=== PATIENT | male | born 1975 | race Two or more races ===

== ENCOUNTER 2024-09-06 19:52 | Inpatient (IN) | payer MEDICAID, OTHER ==
[~2024-09-06] VITALS: Ht 185.4 cm; Wt 92.2 kg
--- NOTE | 2024-09-06 20:17 | ED.PDOC ---
Musculoskeletal HPI Comments This is a 48 year old male GABRIELA presenting to the ED with chief complaint of bilateral leg swelling. Patient reports that he has been experiencing bilateral leg swelling and redness, worse on left, for the past 2-3 days. Patient relays that he has been compliant with all of his medication. Patient denies any chest pain, SOB, dizziness, N/V, fever, or chills. Patient was tachycardic at arrival. 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, Medications, Allergies Allergies: Coded Allergies: Lisinopril (Verified Allergy, Unknown, 09/06/24) Information Source: Patient, Emergency Med Personnel Mode of Arrival: EMS Location: Bilateral Extremity Location: Foot, Leg Timing: Days Prehospital treatment: None Severity: Moderate Able to Move Extremity: Yes Bear Weight: Fully Pain: Moderate Mechanism: Spontaneous Circumstances: Spontaneous Onset of Symptoms: Spontaneous Symptoms: Swelling, Pain, Erythema DVT Risk Factors: CHF Past Medical History PAST MEDICAL HISTORY: CHF, COPD, HTN Surgical History: Denies all surgeries Family History Family History: Reviewed,noncontributory to illness Social History Smoker: Non-Smoker Alcohol: Denies ETOH Use Drugs: Denies Drug Use Lives In: Home Constitutional: denies: chills, diaphoresis, fatigue, fever, malaise, sweats, weakness, others EENTM: denies: blurred vision, double vision, ear bleeding, ear discharge, ear drainage, ear pain, ear ringing, eye pain, eye redness, hearing loss, mouth pain, mouth swelling, nasal discharge, nose bleeding, nose congestion, nose pain, photophobia, tearing, throat pain, throat swelling, voice changes, others Respiratory: denies: cough, hemoptysis, orthopnea, SOB at rest, shortness of breath, SOB with excertion, stridor, wheezing, others Cardiovascular: reports: edema; denies: chest pain, dizzy spells, diaphoresis, Dyspnea on exertion, irregular heart beat, left arm pain, lightheadedness, palpitations, PND, syncope, others Gastrointestinal: denies: abdomen distended, abdominal pain, blood streaked bowels, constipated, diarrhea, dysphagia, difficulty swallowing, hematemesis, melena, nausea, poor appetite, poor fluid intake, rectal bleeding, rectal pain, vomiting, others Genitourinary: denies: burning, dysuria, flank pain, frequency, hematuria, incontinence, penile discharge, penile sore, pain, testicle pain, testicle swelling, urgency, others Neurological: denies: dizziness, fainting, headache, left sided numbness, left sided weakness, numbness, paresthesia, pre-existing deficit, right sided numbness, right sided weakness, seizure, speech problems, tingling, tremors, weakness, others Musculoskeletal: reports: others (Bilateral lower extremity swelling); denies: back pain, gout, joint pain, joint swelling, muscle pain, muscle stiffness, neck pain Integumetry: denies: bruises, change in color, change in hair/nails, dryness, laceration, lesions, lumps, rash, wounds, others Allergic/Immunocompromised: denies: Difficulty Healing, Frequent Infections, Hives, Itching, others Hematologic/Lymphatic: denies: anemia, blood clots, easy bleeding, easy bruising, swollen glands, others Endocrine: denies: excessive hunger, excessive sweating, excessive thirst, excessive urination, flushing, intolerance to cold, intolerance to heat, unexplained weight gain, unexplained weight loss, others Psychiatric: denies: anxiety, bipolar disorder, depression, hopeless, panic disorder, schizophrenia, sleepless, suicidal, others All Other Systems: Reviewed and Negative Physical Exam General Appearance: Moderate Distress (Moderate distress due to bilateral lower extremity swelling. Patient appears not well kempt.), Normal HEENT: Normal ENT Inspection, Pharynx Normal, TMs Normal Neck: Full Range of Motion, Non-Tender, Normal, Normal Inspection Respiratory: Chest Non-Tender, Lungs Clear, No Accessory Muscle Use, No Respiratory Distress, Normal Breath Sounds Cardiovascular: No Edema, No JVD, No Murmur, No Gallop, Normal Peripheral Pulses, Regular Rate/Rhythm Breast Exam: Deferred Gastrointestinal: No Organomegaly, Non Tender, No Pulsatile Mass, Normal Bowel Sounds, Soft Genitalia: Deferred Pelvic: Deferred Rectal: Deferred Extremities: Other (Patient displays 2+ to 3+ pitting edema noted to bilateral lower extremities with left greater than right. Distal neurovascularly intact. Localized erythema.) Neurologic: Alert, No Motor Deficits, Normal Affect, Normal Mood, No Sensory Deficits Cerebellar Function: Normal Reflexes: Normal Skin: Dry, Normal Color, Warm Lymphatic: No Adenopathy Was a procedure done? Was a procedure done?: No Differential Diagnosis EXT Differential Diagnosis: Cellulitis, CHF X-Ray, Labs, Meds, VS Vital Signs Date Time Temp Pulse Resp B/P (MAP) Pulse Ox O2 Delivery O2 Flow Rate FiO2 09/06/24 22:33 112 09/06/24 21:04 122/61 09/06/24 21:00 98.0 108 16 122/61 (81) 98 98.0 09/06/24 21:00 98 Room Air* 0 21 09/06/24 20:05 98.0 108 16 122/61 (81) 98 98.0 Lab Test 09/06/24 22:30 09/06/24 21:36 09/06/24 20:46 Range/Units Lactic Acid Level 1.4 2.2 *H 0.4-2.0 mmol/L Troponin I High Sensitivity 59 *H 52 </=54 ng/L White Blood Count 9.5 4.4-10.8 10^3/uL Red Blood Count 5.32 4.5-5.90 10^6/uL Hemoglobin 14.8 13.5-17.5 g/dL Hematocrit 45.6 41.0-53.0 % Mean Corpuscular Volume 85.7 80.0-100.0 fL Mean Corpuscular Hemoglobin 27.8 L 28.0-32.0 pg Mean Corpuscular Hemoglobin Concent 32.4 32.0-36.0 g/dL Red Cell Distribution Width 16.1 H 11.8-14.3 % Platelet Count 242 140-450 10^3/uL Mean Platelet Volume 7.5 6.9-10.8 fL Neutrophils (%) (Auto) 72.2 37.0-80.0 % Lymphocytes (%) (Auto) 15.6 10.0-50.0 % Monocytes (%) (Auto) 10.7 0.0-12.0 % Eosinophils (%) (Auto) 0.8 0.0-7.0 % Basophils (%) (Auto) 0.7 0.0-2.0 % Neutrophils # (Auto) 6.8 1.6-8.6 10 ^3/uL Lymphocytes # (Auto) 1.5 0.4-5.4 10 ^3/uL Monocytes # (Auto) 1.0 0-1.3 10 ^3/uL Eosinophils # (Auto) 0.1 0-0.8 10 ^3/uL Basophils # (Auto) 0.1 0-0.2 10 ^3/uL Nucleated Red Blood Cells 0.2 % Sodium Level 142 136-145 mmol/L Potassium Level 4.3 3.5-5.1 mmol/L Chloride Level 111 H 98-107 mmol/L Carbon Dioxide Level 21 20-31 mmol/L Anion Gap 10 5-15 Blood Urea Nitrogen 19 9-23 mg/dL Creatinine 1.40 H 0.700-1.30 mg/dL Glomerular Filtration Rate Calc 61 >90 mL/min BUN/Creatinine Ratio 13.6 10.0-20.0 Serum Glucose 92 74-106 mg/dL Calcium Level 8.8 8.7-10.4 mg/dL Total Bilirubin 1.1 H 0.2-1.0 mg/dL Aspartate Amino Transferase (AST) 35 H <34 U/L Alanine Aminotransferase (ALT) 52 H 7-40 U/L Alkaline Phosphatase 90 46-116 U/L B-Type Natriuretic Peptide 1828.04 0-100 pg/mL Total Protein 5.7 5.7-8.2 g/dL Albumin 3.5 3.2-4.8 g/dL Lipase 34 12-53 U/L Current Medications Medications (Trade) Dose Ordered Sig/Katlyn Route Start Time Stop Time Status Last Admin Furosemide (Lasix Injection) 60 mg ONCE ONCE IV 09/06/24 20:30 09/06/24 20:31 DC 09/06/24 21:04 X-Ray, Labs, Meds, VS Comment All studies performed the ED were evaluated by me personally. Patient's laboratories revealed a mild but elevated troponin as well as elevated lactic acid. EKG revealed a sinus tachycardia with a rate of 112. Atrial premature complex noted as well as left atrial enlargement, LAD and anterior septal infarct that appears to be old. FL interval of 145 and QT interval of 330. Significant BNP elevation indicative of a acute CHF exacerbation as well as a transaminitis was noted. Patient will be admitted for management of his CHF concerns as well as cardiac evaluation of his elevated troponins. Any additional studies required will be initiated by the hospitalist as per management directive. Time of 1ST Reevaluation: 22:24 Reevaluation 1ST: Improved Consultation: PCP, Cardiology Patient Education/Counseling: Diagnosis, Treatment Family Education/Counseling: Diagnosis, Treatment, No Family Present Sepsis Sepsis Reasesment Focused Exam Orders: Laboratory Tests 09/06/24 20:46: Lactic Acid Level 2.2 09/06/24 22:30: Lactic Acid Level 1.4 Recent Procedure: No On Antibiotic Therapy: No Respiratory Rate >20: No Heart Rate >90: No Temp<36 C (96.8 F) or >38.3 C: No SBP <90 or MAP <65 mmHG: No New Acute Mental Status Change: No Is the patient on CPAP, BIPAP,: No IV fluid given: Yes Departure 1 Departure Time of Disposition: 22:24 Impression: Primary Impression: Acute exacerbation of CHF (congestive heart failure) Additional Impressions: Elevated troponin Elevated lactic acid level Transaminitis Disposition: ADMITTED INPATIENT Condition: Fair Discharged With: Self Critical Care Note Critical Care Time?: No Stability Stability form required: No Heart Score Heart Score: Heart Score Response (Comments) Value History Slightly Suspicious 0 EKG Repolarization Disturb 1 Age 45-64 1 Risk Factors 1 or 2 risk factors 1 Troponin 1-2 x's Normal limit 1 Total 4 I personally scribed for SUZIE MALDONADO PAC ([email or web address]) on 09/06/24 at 20:17. Electronically submitted by Anhsu Tom ([email or web address]). SUZIE AMLDONADO PAC Sep 06, 2024 20:17
[2024-09-06 21:00] VITALS: O2SAT 98
[2024-09-06] MEDS: FUROSEMIDE 100 MG/10ML VIAL IV ONE (21:04)
[2024-09-06 21:30] LABS: Hematocrit 45.6 % (41.0-53.0); Hemoglobin 14.8 g/dL (13.5-17.5); Mean Corpuscular Hemoglobin 27.8 pg (28.0-32.0); Mean Corpuscular Volume 85.7 fL (80.0-100.0); Nucleated Red Blood Cells % 0.2 %
[2024-09-06 21:37] LABS: Albumin 3.5 g/dL (3.2-4.8); Alkaline Phosphatase 90 U/L (46-116); Anion Gap 10 (5-15); BUN/Creatinine Ratio 13.6 (10.0-20.0); Bilirubin, Total 1.1 mg/dL (0.2-1.0); Blood Urea Nitrogen 19 mg/dL (9-23); Calcium 8.8 mg/dL (8.7-10.4); Carbon Dioxide 21 mmol/L (20-31); Glucose 92 mg/dL (74-106); Lipase 34 U/L (12-53); Potassium 4.3 mmol/L (3.5-5.1); Sodium 142 mmol/L (136-145)
[2024-09-06 21:50] LABS: Alanine Aminotransferase 52 U/L (7-40); Chloride 111 mmol/L (98-107); Total Protein 5.7 g/dL (5.7-8.2)
[2024-09-06 21:56] LABS: Lactic Acid w/Reflex 2.2 mmol/L (0.4-2.0)
[2024-09-06] MEDS: SODIUM CHLORIDE 0.9% 1,000 ML IV ONE (22:32)
[2024-09-07] MEDS: FUROSEMIDE INJECTION 10 ML ONE (01:52)
[2024-09-07] MEDS ORDERED: ACETAMINOPHEN 325 MG TAB PO PRN (04:45)
[2024-09-07] MEDS ORDERED: DOCUSATE SOD 100 MG CAP PO PRN (04:45)
[2024-09-07] MEDS ORDERED: hydrALAZINE HCL 20 MG/ML VL IV PRN (04:45)
[2024-09-07] MEDS ORDERED: ONDANSETRON HCL 4 MG/2 ML VIAL IV PRN (04:45)
--- NOTE | 2024-09-07 05:26 | DVHHP2 ---
History of Present Illness Reason for Visit: Acute exacerbation of congestive heart failure History of Present Illness The patient is a 48-year-old male with past medical history of COPD, CHF, and hy pertension who presented to [facility] ED with complaint of bilateral lower extremity swelling. Patient reports that he has been experiencing bilateral leg swelling, redness, worse on left, for the past 3 days. Reports that he has been compliant with all of his medication. Patient was seen and evaluated in the ED, laboratory data shows WBC 9.5, platelets 242, sodium 142, potassium 4.3, BUN 19, creatinine 1.40, glucose 92, calcium 8.8, lipase 34, AST 35, ALT 52, troponin 59, BNP 1823.04, lactic acid 2.2 trending down to 1.4, blood pressure 149/89, heart rate 57, temperature 97.6 F, O2 saturation 99% on oxygen. Patient was started on IV Lasix, please see medication orders section in the computer. On my assessment, patient denied chest pain, no headache, no dizziness, no diaphoresis, no shortness of breath, no diarrhea, no nausea, no vomiting, no fever, no chills. Patient was admitted for further evaluation and medical management. Past Medical History CHF, COPD, HTN Past Surgical History Denies all surgeries Family History Reviewed, noncontributory to the management of this case. Past Social History The patient lives at home, denies smoking, alcohol or illicit drugs abuse. Review of Systems Constitutional: Yes: Weakness; No: Fever, Chills, Sweats, Malaise, Other Eyes: No: Pain, Vision change, Conjunctivae inflammation, Eyelid inflammation, Other, Redness ENT: No: Ear pain, Ear discharge, Nose pain, Nose discharge, Nose congestion, Mouth pain, Mouth swelling, Throat pain, Throat swelling, Other Respiratory: Shortness of breath; No: Cough, Dry, SOB with excertion, Wheezing, Hemoptysis, Pleuritic Pain, Sputum, Wheezing, Other Cardiovascular: Edema; No: Chest Pain, Palpitations, Orthopnea, Paroxysmal Noc. Dyspnea, Lt Headedness, Other Gastrointestinal: No: Nausea, Vomiting, Abdominal Pain, Diarrhea, Constipation, Melena, Hematochezia, Other Genitourinary: No Dysuria, No Frequency, No Incontinence, No Hematuria, No Retention, No Other Musculoskeletal: other (Bilateral lower extremity swelling); No: neck pain, shoulder pain, arm pain, back pain, hand pain, leg pain, foot pain Skin: Other (Lower extremity redness); No: Rash, Lesions, Jaundice, Bruising Neurological: No: Weakness, Numbness, Incoordination, Change in speech, Confusion, Seizures, Other Allergies: Coded Allergies: Lisinopril (Verified Allergy, Unknown, 09/06/24) Medications Current Medications Medications Dose Ordered Sig/Katlyn Route Start Time Stop Time Status Last Admin Dose Admin Furosemide 40 mg DAILY IV 09/07/24 10:00 Carvedilol 3.125 mg Q12HR PO 09/07/24 10:00 Hydralazine HCl 10 mg Q6HP PRN IV 09/07/24 04:45 Sodium Chloride 10 ml Q8HR IV 09/07/24 06:00 Acetaminophen/ Hydrocodone Bitart 1 tab Q4HP PRN PO 09/07/24 04:45 Ondansetron HCl 4 mg Q4HP PRN IV 09/07/24 04:45 Docusate Sodium 100 mg BIDPRN PRN PO 09/07/24 04:45 Acetaminophen 650 mg Q6HP PRN PO 09/07/24 04:45 Nitroglycerin 0.4 mg Q5MINP PRN SL 09/07/24 05:30 UNV Morphine Sulfate 2 mg Q30M PRN IV 09/07/24 05:30 UNV Exam Vital Signs Vital Signs Date Time Temp Pulse Resp B/P (MAP) Pulse Ox O2 Delivery O2 Flow Rate FiO2 09/07/24 02:40 97.5 50 20 129/87 (101) 99 97.5 09/06/24 21:00 Room Air* 0 21 General Appearance: Alert, Oriented X3, Cooperative, No acute distress HEENT: Atraumatic, PERRLA, EOMI, Mucous membr. moist/pink Respiratory: Normal air movement, Other (Diminished breath sounds) Cardiovascular: Regular rate, Normal S1, Normal S2, No murmurs Abdominal: Normal bowel sounds, Soft, No tenderness, No hepatospenomegaly, No masses Extremities: No clubbing, No cyanosis, No edema, Normal pulses, Other (Lower extremity swelling) Skin: No rashes, No breakdown, No significant lesion Neuro: Normal speech, Normal tone, Sensation intact, Cranial nerves 3-12 NL, Reflexes 2+, Other (Generalized weakness) Psych/Mental Status: Mental status NL, Mood NL Labs/Xrays Labs Test 09/06/24 23:43 09/06/24 22:30 09/06/24 20:46 Range/Units Troponin I High Sensitivity 59 *H </=54 ng/L Lactic Acid Level 1.4 0.4-2.0 mmol/L White Blood Count 9.5 4.4-10.8 10^3/uL Red Blood Count 5.32 4.5-5.90 10^6/uL Hemoglobin 14.8 13.5-17.5 g/dL Hematocrit 45.6 41.0-53.0 % Mean Corpuscular Volume 85.7 80.0-100.0 fL Mean Corpuscular Hemoglobin 27.8 L 28.0-32.0 pg Mean Corpuscular Hemoglobin Concent 32.4 32.0-36.0 g/dL Red Cell Distribution Width 16.1 H 11.8-14.3 % Platelet Count 242 140-450 10^3/uL Mean Platelet Volume 7.5 6.9-10.8 fL Neutrophils (%) (Auto) 72.2 37.0-80.0 % Lymphocytes (%) (Auto) 15.6 10.0-50.0 % Monocytes (%) (Auto) 10.7 0.0-12.0 % Eosinophils (%) (Auto) 0.8 0.0-7.0 % Basophils (%) (Auto) 0.7 0.0-2.0 % Neutrophils # (Auto) 6.8 1.6-8.6 10 ^3/uL Lymphocytes # (Auto) 1.5 0.4-5.4 10 ^3/uL Monocytes # (Auto) 1.0 0-1.3 10 ^3/uL Eosinophils # (Auto) 0.1 0-0.8 10 ^3/uL Basophils # (Auto) 0.1 0-0.2 10 ^3/uL Nucleated Red Blood Cells 0.2 % Sodium Level 142 136-145 mmol/L Potassium Level 4.3 3.5-5.1 mmol/L Chloride Level 111 H 98-107 mmol/L Carbon Dioxide Level 21 20-31 mmol/L Anion Gap 10 5-15 Blood Urea Nitrogen 19 9-23 mg/dL Creatinine 1.40 H 0.700-1.30 mg/dL Glomerular Filtration Rate Calc 61 >90 mL/min BUN/Creatinine Ratio 13.6 10.0-20.0 Serum Glucose 92 74-106 mg/dL Calcium Level 8.8 8.7-10.4 mg/dL Total Bilirubin 1.1 H 0.2-1.0 mg/dL Aspartate Amino Transferase (AST) 35 H <34 U/L Alanine Aminotransferase (ALT) 52 H 7-40 U/L Alkaline Phosphatase 90 46-116 U/L B-Type Natriuretic Peptide 1828.04 0-100 pg/mL Total Protein 5.7 5.7-8.2 g/dL Albumin 3.5 3.2-4.8 g/dL Lipase 34 12-53 U/L Assessment/Plan Assessment/Plan Acute exacerbation of congestive heart failure Elevated troponin Elevated lactic acid level Transaminitis Acute renal injury Elevated liver enzymes Generalized weakness Plan 1. Admit to telemetry unit 2. Breathing treatment 3. Pain control management 4. Management of fluids and electrolytes 5. Consultation for hospitalist 6. Diagnostic tests chest x-ray 7. DVT prophylaxis-on aspirin 8. Repeat labs CBC, CMP in a.m. 9. Continue with current medical management 10. Treatment plan discussed with patient and RN. Patient verbalized understanding. Plan discussed with: Patient, Other (RN) My Orders Orders - CHAYITO IZAGUIRRE DNP Procedure Category Date Status Time Complete Blood Count LAB 09/07/24 Logged 04:41 Comprehensive LAB 09/07/24 Logged Metabolic Panel 04:41 Furosemide Injection PHA 09/07/24 In Process (Lasix Injection) 10:00 Carvedilol Tablet PHA 09/07/24 In Process (Coreg Tablet) 10:00 Hydralazine Injection PHA 09/07/24 In Process (Apresoline Inject 04:45 Allergies BUCKY 09/07/24 In Process 04:41 Code Status CODE 09/07/24 Transmitted 04:41 Sodium Chloride Lock PHA 09/07/24 In Process (Saline Lock Ns) 06:00 Oxygen Per Hour RT 09/07/24 Transmitted 04:41 Hydrocodone-Acet PHA 09/07/24 In Process 5/325mg Tab ([place] 04:45 Ondansetron Hcl PHA 09/07/24 In Process (Zofran) 04:45 Docusate Sodium PHA 09/07/24 In Process Capsule (Colace 04:45 Complete Blood Count LAB 09/08/24 Verified 04:00 Comprehensive LAB 09/08/24 Verified Metabolic Panel 04:00 Cardiac DIET 09/07/24 Transmitted Diet-2gna,Lofat,Lochol Breakfast Condition: Serious [facility] 09/07/24 In Process 04:[address] [facility] 09/07/24 In Process (Tylenol Tablet) 04:45 Bedrest With Bathroom [facility] 09/07/24 In Process Privileg 04:41 Sequential [facility] 09/07/24 In Process Compression Device Echo 2d Mode Cardiac US 09/07/24 Logged DOP 05:04 Admit ADMIT 09/07/24 Transmitted 05:[address] [facility] 09/07/24 Logged Sublingual (Ntrostat 05:[address] [facility] 09/07/24 Logged Injection 05:30 Stat Ekg For Chest [facility] 09/07/24 In Process Pain 05:23 Notify Md Of Changes [facility] 09/07/24 In Process From Base 05:23 Bilingual Nanny For [facility] 09/07/24 In Process 24 Hours 05:23 Emergency Dysrhythmia [facility] 09/07/24 In Process Protocol 05:23 Rhythm Strips Once [facility] 09/07/24 In Process Every Shift 05:23 Oxygen By Nasal RT 09/07/24 Transmitted Cannula 05:23 Problem List: (1) Acute exacerbation of congestive heart failure (2) Elevated troponin (3) Elevated lactic acid level (4) Transaminitis (5) Acute renal injury (6) Elevated liver enzymes (7) Generalized weakness Date of Service: Sep 07, 2024 Billing Provider: CHAYITO IZAGUIRRE DNP Common Visit Codes: [id number] INP/OBS CARE (HIGH) CHAYITO IZAGUIRRE DNP Sep 07, 2024 05:26
[2024-09-07] MEDS ORDERED: NITROGLYCERIN 0.4 MG SL TAB SL PRN (05:30)
[2024-09-07] MEDS ORDERED: MORPHINE SULFATE INJ 2 MG/ml SYRG IV PRN (05:30)
[2024-09-07 05:55] LABS: Hematocrit 48.6 % (41.0-53.0); Hemoglobin 15.8 g/dL (13.5-17.5); Mean Corpuscular Hemoglobin 27.3 pg (28.0-32.0); Mean Corpuscular Volume 84.2 fL (80.0-100.0); Nucleated Red Blood Cells % 0.1 %
[2024-09-07] MEDS: SODIUM CHLOR 0.9% PF (SALINE LOCK) 10ML VIAL/SYR IV SCH (06:02)
[2024-09-07 06:11] LABS: Albumin 3.9 g/dL (3.2-4.8); Alkaline Phosphatase 91 U/L (46-116); Anion Gap 9 (5-15); BUN/Creatinine Ratio 16.2 (10.0-20.0); Calcium 9.1 mg/dL (8.7-10.4); Carbon Dioxide 24 mmol/L (20-31); Chloride 107 mmol/L (98-107); Potassium 4.3 mmol/L (3.5-5.1); Sodium 140 mmol/L (136-145); Total Protein 6.2 g/dL (5.7-8.2)
[2024-09-07 06:29] LABS: Alanine Aminotransferase 55 U/L (7-40); Bilirubin, Total 1.4 mg/dL (0.2-1.0); Blood Urea Nitrogen 23 mg/dL (9-23); Glucose 110 mg/dL (74-106)
[2024-09-07] MEDS: FUROSEMIDE 40 MG/4 ML VIAL IV SCH ×2 (07:46→18:00)
[2024-09-07] MEDS: CARVEDILOL 3.125 MG TAB PO SCH (07:46)
[2024-09-07] MEDS: HYDROcodone-ACET 5/325MG TAB PO PRN (07:48)
[2024-09-07 08:02] VITALS: PULSE 50; RESP 20; O2SAT 95
[2024-09-07 10:45] VITALS: BP 143/95; PULSE 100; RESP 20; TEMP 98.6; O2SAT 100
[2024-09-07 12:00] VITALS: BP 152/81; PULSE 87; RESP 12; TEMP 97.5; O2SAT 95
--- NOTE | 2024-09-07 12:54 | DVH ---
CHEST RADIOGRAPH Indication: CHF Technique: Single frontal view of the chest was obtained Comparison: None FINDINGS: The cardiac silhouette is enlarged. The lungs demonstrate perihilar airspace opacities. Left basilar airspace opacities. The pulmonary vasculature is prominent. There is no pleural effusion. There is no pneumothorax. IMPRESSION: Cardiomegaly with pulmonary vascular congestion and bilateral perihilar airspace opacities. Left basilar airspace opacities.
--- NOTE | 2024-09-07 13:00 | DVHPN2 ---
Subjective I am assuming the care of the patient from today onwards who was under the care of the hospitalist team. Chest x-ray has been ordered. Patient denies any shortness of breaths but does complaining of leg swelling for last three days. Changes from previous H/P or p: No Changes Eyes: No Pain, No Vision change, No Conjunctivae inflammation, No Eyelid inflammation, No Other, No Redness ENT: No Ear pain, No Ear discharge, No Nose pain, No Nose discharge, No Nose congestion, No Mouth pain, No Mouth swelling, No Throat pain, No Throat swelling, No Other Cardiovascular: No Chest Pain, No Palpitations, No Orthopnea, No Paroxysmal Noc. Dyspnea; Edema; No Lt Headedness, No Other Respiratory: No Cough, No Dry; Shortness of breath; No SOB with excertion, No Wheezing, No Hemoptysis, No Pleuritic Pain, No Sputum, No Other Gastrointestinal: No Nausea, No Vomiting, No Abdominal Pain, No Diarrhea, No Constipation, No Melena, No Hematochezia, No Other Genitourinary: No Dysuria, No Frequency, No Incontinence, No Hematuria, No Retention, No Other Musculoskeletal: other (Bilateral lower extremity swelling); No neck pain, No shoulder pain, No arm pain, No back pain, No hand pain, No leg pain, No foot pain Skin: No Rash, No Lesions, No Jaundice, No Bruising; Other (Lower extremity redness) Objective Vitals Vital Signs Date Time Temp Pulse Resp B/P (MAP) Pulse Ox O2 Delivery O2 Flow Rate FiO2 09/07/24 12:00 97.5 87 12 152/81 (104) 95 97.5 09/07/24 08:02 Room Air* 0 21 Exam HEENT pupils are reactive Neck is supple CV is S1-S2 regular rate and rhythm Respiratory bilateral basal crackles GI positive bowel sound Extremity 3+ pitting edema [employer]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 Medications Current Medications Medications Dose Ordered Sig/Katlyn Route Start Time Stop Time Status Last Admin Dose Admin Furosemide 40 mg DAILY IV 09/07/24 10:00 09/07/24 07:46 40 MG Carvedilol 3.125 mg Q12HR PO 09/07/24 10:00 Hydralazine HCl 10 mg Q6HP PRN IV 09/07/24 04:45 Sodium Chloride 10 ml Q8HR IV 09/07/24 06:00 09/07/24 06:02 10 ML Acetaminophen/ Hydrocodone Bitart 1 tab Q4HP PRN PO 09/07/24 04:45 09/07/24 07:48 1 TAB Ondansetron HCl 4 mg Q4HP PRN IV 09/07/24 04:45 Docusate Sodium 100 mg BIDPRN PRN PO 09/07/24 04:45 Acetaminophen 650 mg Q6HP PRN PO 09/07/24 04:45 Nitroglycerin 0.4 mg Q5MINP PRN SL 09/07/24 05:30 Morphine Sulfate 2 mg Q30M PRN IV 09/07/24 05:30 Aspirin 81 mg DAILY PO 09/08/24 10:00 Laboratory Results Laboratory Tests 09/07/24 05:45 Chemistry Test 09/06/24 20:46 09/07/24 05:45 Albumin 3.5 g/dL (3.2-4.8) 3.9 g/dL (3.2-4.8) Calcium Level 8.8 mg/dL (8.7-10.4) 9.1 mg/dL (8.7-10.4) Total Protein 5.7 g/dL (5.7-8.2) 6.2 g/dL (5.7-8.2) Lipid panel Test 09/06/24 20:46 Lipase 34 U/L (12-53) Cardiac Markers Test 09/06/24 20:46 B-Type Natriuretic Peptide 1828.04 pg/mL (0-100) LFT Test 09/06/24 20:46 09/07/24 05:45 Alanine Aminotransferase (ALT) 52 U/L (7-40) H 55 U/L (7-40) H Alkaline Phosphatase 90 U/L (46-116) 91 U/L (46-116) Aspartate Amino Transferase (AST) 35 U/L (<34) H 37 U/L (<34) H Total Bilirubin 1.1 mg/dL (0.2-1.0) H 1.4 mg/dL (0.2-1.0) H Assessment/Plan Assessment/Plan 48-year-old male with a known history of COPD, chronic tobacco use disorder, congestive heart failure, hypertension who initially presented to hospital with a bilateral lower extremity swelling found to have 1. Acute on chronic congestive heart failure exacerbation unspecified 2. Acute kidney injury suspected secondary to vasomotor nephropathy 3. Mildly elevated troponin suspect secondary to acute CHF exacerbation 4. Transaminitis suspect secondary to passive congestion from congestive heart failure 5. COPD 6. Chronic tobacco use disorder -Glenda chest x-ray, IV diuretics, 2D echo -beta alhaji, med nebs as needed. Plan discussed with: Patient My Orders Orders - MAURICIO MAYER MD Procedure Category Date Status Time * Cardiology Consult CONS 09/07/24 Transmitted 12:06 Chest Xray 1 View XY 09/07/24 Resulted 12:06 Furosemide Injection PHA 09/07/24 Transmitted (Lasix Injection) 18:00 Date of Service: Sep 07, 2024 Billing Provider: MAURICIO MAYER MD Common Visit Codes: [id number] INP/OBS CARE(MOD) MAURICIO MAYER MD Sep 07, 2024 13:00
[2024-09-07] MEDS: hydrALAZINE HCL 20 MG/ML VL IV PRN (14:15)
[2024-09-07 15:16] VITALS: BP 125/84; PULSE 60; RESP 12; O2SAT 99
--- NOTE | 2024-09-07 19:36 | DVHSR ---
APPROVED REPORT EXAM: Two-dimensional and M-mode echocardiogram with Doppler and color Doppler. INDICATION CHF exacerbation unspecified RISK FACTORS Height: 6'1, Weight: 220 DIMENSIONS LVDd6.7 (3.8-5.7cm)LA (2D)4.4 (1.9-4.0cm)Aortic Root3.6 (2.0-3.7cm) LVDs5.5 (2.5-4.0cm)LA (MM) (1.9-4.0cm)Aortic Cusp Exc1.8 (1.5-2.0cm) EF (%) 25.0 (55-70%)Rt. Atrium5.3 (1.9-4.0cm)Asc. Aorta3.0 cm IVSd0.8 (0.7-1.1cm)RV (D)5.3 (1.8-2.4cm) PWd1.2 (0.7-1.1cm) Mitral Valve MitralMitral Stenosis E wave1.04m/sMV Mean GR.mmHg A wave0.47m/sMV Peak GR.106mmHg E/A ratio2.22D MVAcm2 DECEL [id number] 1/2 Timems Aortic Valve Aortic ValveAortic Stenosis V10.84m/Maddie Mean GR.4mmHg V21.38m/Maddie Peak GR.7mmHg LVOT Diameter2.2 (1.8-2.4cm)Doppler AVA2.31cm2 Pulmonic Valve V21.00m/s Tricuspid Valve TR Velocity2.77m/s [id number] Conclusion DILATED ALL CARDIAC CHAMBERS SEVERE HYPOKINESIS OF ALL CARDIAC CHAMBERS LV EF IS ONLY 20% SEVERE MR CRITICAL PULMONARY HYPERTENSION RVSP IS 61 MM OF HG AND IS VERY HIGH NO EFFUSION
[2024-09-07 20:00] VITALS: BP 164/95; PULSE 69; RESP 17; TEMP 97.9; O2SAT 98
[2024-09-07 21:00] VITALS: BP 130/79; PULSE 52; RESP 17; TEMP 97.7; O2SAT 99
[2024-09-08] VITALS (22 sets, daily range): BP systolic 97–141; BP diastolic 54–103; PULSE 49–108; RESP 17–20; TEMP 97–98.2; O2SAT 95–100
[2024-09-08] MEDS: ALBUTEROL SULF 2.5 MG/0.5ML(0.5%) NEB SOLN NEB PRN (01:17)
[2024-09-08 06:14] LABS: Alanine Aminotransferase 40 U/L (7-40); Albumin 3.7 g/dL (3.2-4.8); Alkaline Phosphatase 84 U/L (46-116); Anion Gap 11 (5-15); BUN/Creatinine Ratio 17.8 (10.0-20.0); Bilirubin, Total 1.1 mg/dL (0.2-1.0); Calcium 9.7 mg/dL (8.7-10.4); Carbon Dioxide 24 mmol/L (20-31); Glucose 92 mg/dL (74-106); Potassium 4.5 mmol/L (3.5-5.1); Sodium 142 mmol/L (136-145); Total Protein 5.8 g/dL (5.7-8.2)
[2024-09-08 06:23] LABS: Blood Urea Nitrogen 26 mg/dL (9-23); Chloride 107 mmol/L (98-107)
[2024-09-08 09:59] LABS: Hematocrit 45.9 % (41.0-53.0); Hemoglobin 15.2 g/dL (13.5-17.5); Mean Corpuscular Hemoglobin 28.1 pg (28.0-32.0); Mean Corpuscular Volume 84.7 fL (80.0-100.0); Nucleated Red Blood Cells % 0.1 %
--- NOTE | 2024-09-08 11:04 | ECG ---
[facility] Test Date: 2024-09-06 Test Time: 22:33:05 Pat Name: SARAH OLIVERA Department: ER Room: 0214T B Gender: M Community Health Coordinator: TA : 1975 Requested By: SUZIE MALDONADO Order Number: [id number] Reading MD: Peter Leong Measurements Intervals Arnold Rate: 112 P: 32 VA: 145 QRS: -50 QRSD: 100 T: 55 QT: 330 QTc: 451 Interpretive Statements Sinus tachycardia Atrial premature complex Probable left atrial enlargement LAD, consider left anterior fascicular block Anteroseptal infarct, old Electronically Signed On 09-08-2024 20:11:02 PDT by Peter Leong Please click the below link to view image of tracing.
--- NOTE | 2024-09-08 15:20 | DVHPN2 ---
Subjective Chest x-ray reviewed Patient denies any shortness of breaths but does complaining of leg swelling for last three days. Changes from previous H/P or p: No Changes Eyes: No Pain, No Vision change, No Conjunctivae inflammation, No Eyelid inflammation, No Other, No Redness ENT: No Ear pain, No Ear discharge, No Nose pain, No Nose discharge, No Nose congestion, No Mouth pain, No Mouth swelling, No Throat pain, No Throat swelling, No Other Cardiovascular: No Chest Pain, No Palpitations, No Orthopnea, No Paroxysmal Noc. Dyspnea; Edema; No Lt Headedness, No Other Respiratory: No Cough, No Dry; Shortness of breath; No SOB with excertion, No Wheezing, No Hemoptysis, No Pleuritic Pain, No Sputum, No Other Gastrointestinal: No Nausea, No Vomiting, No Abdominal Pain, No Diarrhea, No Constipation, No Melena, No Hematochezia, No Other Genitourinary: No Dysuria, No Frequency, No Incontinence, No Hematuria, No Retention, No Other Musculoskeletal: other (Bilateral lower extremity swelling); No neck pain, No shoulder pain, No arm pain, No back pain, No hand pain, No leg pain, No foot pain Skin: No Rash, No Lesions, No Jaundice, No Bruising; Other (Lower extremity redness) Objective Vitals Vital Signs Date Time Temp Pulse Resp B/P (MAP) Pulse Ox O2 Delivery O2 Flow Rate FiO2 09/08/24 13:00 97.7 49 19 130/98 (109) 99 97.7 09/08/24 10:00 Room Air* 0 21 Intake/Output Intake and Output 09/08/24 07:00 Intake Total 650 ml Balance 650 ml Intake Oral 650 ml Exam HEENT pupils are reactive Neck is supple CV is S1-S2 regular rate and rhythm Respiratory bilateral basal crackles GI positive bowel sound Extremity 3+ pitting edema [place] HAULIER no motor deficit Medications Current Medications Medications Dose Ordered Sig/Katlyn Route Start Time Stop Time Status Last Admin Dose Admin Carvedilol 3.125 mg Q12HR PO 09/07/24 10:00 09/08/24 09:58 3.125 MG Sodium Chloride 10 ml Q8HR IV 09/07/24 06:00 09/08/24 06:00 10 ML Acetaminophen/ Hydrocodone Bitart 1 tab Q4HP PRN PO 09/07/24 04:45 09/07/24 07:48 1 TAB Ondansetron HCl 4 mg Q4HP PRN IV 09/07/24 04:45 Docusate Sodium 100 mg BIDPRN PRN PO 09/07/24 04:45 Acetaminophen 650 mg Q6HP PRN PO 09/07/24 04:45 Nitroglycerin 0.4 mg Q5MINP PRN SL 09/07/24 05:30 Morphine Sulfate 2 mg Q30M PRN IV 09/07/24 05:30 Aspirin 81 mg DAILY PO 09/08/24 10:00 09/08/24 09:54 81 MG Furosemide 40 mg BIDD IV 09/07/24 18:00 09/08/24 05:33 40 MG Hydralazine HCl 10 mg Q6HP PRN IV 09/07/24 13:45 09/07/24 14:15 10 MG Albuterol 2.5 mg Q4HPRN PRN NEB 09/08/24 01:00 09/08/24 01:17 2.5 MG Albuterol 2.5 mg Q4HWA NEB 09/08/24 18:00 Ipratropium [place] 0.5 mg Q4HWA NEB 09/08/24 18:00 Laboratory Results Laboratory Tests 09/08/24 04:50 09/08/24 09:45 Chemistry Test 09/08/24 04:50 Albumin 3.7 g/dL (3.2-4.8) Calcium Level 9.7 mg/dL (8.7-10.4) Total Protein 5.8 g/dL (5.7-8.2) LFT Test 09/08/24 04:50 Alanine Aminotransferase (ALT) 40 U/L (7-40) Alkaline Phosphatase 84 U/L (46-116) Aspartate Amino Transferase (AST) 29 U/L (<34) Total Bilirubin 1.1 mg/dL (0.2-1.0) H Assessment/Plan Assessment/Plan 48-year-old male with a known history of COPD, chronic tobacco use disorder, congestive heart failure, hypertension who initially presented to hospital with a bilateral lower extremity swelling found to have 1. Acute on chronic congestive heart failure exacerbation unspecified 2. Acute kidney injury suspected secondary to vasomotor nephropathy 3. Mildly elevated troponin suspect secondary to acute CHF exacerbation 4. Transaminitis suspect secondary to passive congestion from congestive heart failure 5. COPD 6. Chronic tobacco use disorder , IV diuretics, 2D echo, daily weights strict I&Os -beta alhaji, med nebs as needed. Plan discussed with: Patient My Orders Orders - MAURICIO MAYER MD Procedure Category Date Status Time Albuterol Medneb PHA 09/08/24 In Process (Ventolin Medneb) 18:00 Ipratropium Medneb PHA 09/08/24 In Process (Atrovent Medneb) 18:00 Date of Service: Sep 08, 2024 Billing Provider: MAURICIO MAYER MD Common Visit Codes: [id number] INP/OBS CARE(MOD) MAURICIO MAYER MD Sep 08, 2024 15:20
[2024-09-08] MEDS ORDERED: IPRATROPIUM BROM 0.5 MG/2.5ML INH SOL NEB SCH ×2 (18:00)
[2024-09-08] MEDS: IPRATROPIUM BROM 0.5 MG/2.5ML INH SOL NEB SCH (18:32)
[2024-09-08] MEDS: ALBUTEROL SULF 2.5 MG/0.5ML(0.5%) NEB SOLN NEB SCH (18:32)
[2024-09-09] VITALS (19 sets, daily range): BP systolic 98–143; BP diastolic 43–105; PULSE 65–98; RESP 16–20; TEMP 97–98.1; O2SAT 95–100
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
--- NOTE | 2024-09-09 15:25 | DVHPN2 ---
Subjective Chest x-ray reviewed Patient denies any shortness of breaths but does complaining of leg swelling for last three days. Changes from previous H/P or p: No Changes Eyes: No Pain, No Vision change, No Conjunctivae inflammation, No Eyelid inflammation, No Other, No Redness ENT: No Ear pain, No Ear discharge, No Nose pain, No Nose discharge, No Nose congestion, No Mouth pain, No Mouth swelling, No Throat pain, No Throat swelling, No Other Cardiovascular: No Chest Pain, No Palpitations, No Orthopnea, No Paroxysmal Noc. Dyspnea; Edema; No Lt Headedness, No Other Respiratory: No Cough, No Dry; Shortness of breath; No SOB with excertion, No Wheezing, No Hemoptysis, No Pleuritic Pain, No Sputum, No Other Gastrointestinal: No Nausea, No Vomiting, No Abdominal Pain, No Diarrhea, No Constipation, No Melena, No Hematochezia, No Other Genitourinary: No Dysuria, No Frequency, No Incontinence, No Hematuria, No Retention, No Other Musculoskeletal: other (Bilateral lower extremity swelling); No neck pain, No shoulder pain, No arm pain, No back pain, No hand pain, No leg pain, No foot pain Skin: No Rash, No Lesions, No Jaundice, No Bruising; Other (Lower extremity redness) Objective Vitals Vital Signs Date Time Temp Pulse Resp B/P (MAP) Pulse Ox O2 Delivery O2 Flow Rate FiO2 09/09/24 14:18 91 18 100 09/09/24 14:12 Room Air* 0 21 21 09/09/24 12:00 97.0 100/43 (62) 97.0 Intake/Output Intake and Output 09/09/24 07:00 Intake Total 2000 ml Balance 2000 ml Intake Oral 2000 ml # Voids 10 # Bowel Movements 1 Exam HEENT pupils are reactive Neck is supple CV is S1-S2 regular rate and rhythm Respiratory bilateral basal crackles GI positive bowel sound Extremity 3+ pitting edema SUBACUTE NURSE no motor deficit Medications Current Medications Medications Dose Ordered Sig/Katlyn Route Start Time Stop Time Status Last Admin Dose Admin Carvedilol 3.125 mg Q12HR PO 09/07/24 10:00 09/09/24 09:45 3.125 MG Sodium Chloride 10 ml Q8HR IV 09/07/24 06:00 09/09/24 14:00 10 ML Acetaminophen/ Hydrocodone Bitart 1 tab Q4HP PRN PO 09/07/24 04:45 09/08/24 20:48 1 TAB Ondansetron HCl 4 mg Q4HP PRN IV 09/07/24 04:45 Docusate Sodium 100 mg BIDPRN PRN PO 09/07/24 04:45 Acetaminophen 650 mg Q6HP PRN PO 09/07/24 04:45 Nitroglycerin 0.4 mg Q5MINP PRN SL 09/07/24 05:30 Morphine Sulfate 2 mg Q30M PRN IV 09/07/24 05:30 Aspirin 81 mg DAILY PO 09/08/24 10:00 09/09/24 09:36 81 MG Hydralazine HCl 10 mg Q6HP PRN IV 09/07/24 13:45 09/07/24 14:15 10 MG Albuterol 2.5 mg Q4HPRN PRN NEB 09/08/24 01:00 09/08/24 01:17 2.5 MG Albuterol 2.5 mg Q4HWA NEB 09/08/24 18:00 09/09/24 14:11 2.5 MG Ipratropium [place] 0.5 mg Q4HWA NEB 09/08/24 18:00 09/09/24 14:11 0.5 MG Furosemide 40 mg DAILY IV 09/10/24 10:00 Laboratory Results Laboratory Tests 09/08/24 04:50 09/08/24 09:45 Assessment/Plan Assessment/Plan 48-year-old male with a known history of COPD, chronic tobacco use disorder, congestive heart failure, hypertension who initially presented to hospital with a bilateral lower extremity swelling found to have 1. Acute on chronic congestive heart failure exacerbation unspecified 2. Acute kidney injury suspected secondary to vasomotor nephropathy 3. Mildly elevated troponin suspect secondary to acute CHF exacerbation 4. Transaminitis suspect secondary to passive congestion from congestive heart failure 5. COPD 6. Chronic tobacco use disorder , IV diuretics, 2D echo, daily weights strict I&Os -beta alhaji, med nebs as needed. Plan discussed with: Patient Date of Service: Sep 09, 2024 Billing Provider: MAURICIO MAYER MD Common Visit Codes: [id number] INP/OBS CARE(MOD) MAURICIO MAYER MD Sep 09, 2024 15:25
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
[2024-09-10] VITALS (18 sets, daily range): BP systolic 123–138; BP diastolic 74–102; PULSE 86–103; RESP 16–20; TEMP 97–98.4; O2SAT 98–100
[2024-09-10] MEDS: FUROSEMIDE 40 MG/4 ML VIAL IV SCH ×2 (09:34→16:08)
[2024-09-10 14:03] LABS: Chloride 105 mmol/L (98-107); Potassium 4.7 mmol/L (3.5-5.1); Sodium 141 mmol/L (136-145)
[2024-09-10 14:04] LABS: Anion Gap 7 (5-15); Carbon Dioxide 29 mmol/L (20-31)
[2024-09-10 14:05] LABS: Calcium 9.8 mg/dL (8.7-10.4)
[2024-09-10 14:10] LABS: BUN/Creatinine Ratio 19.3 (10.0-20.0); Glucose 99 mg/dL (74-106)
[2024-09-10 14:12] LABS: Blood Urea Nitrogen 29 mg/dL (9-23)
--- NOTE | 2024-09-10 14:39 | DVHPN2 ---
Subjective Patient's leg swelling is still about the same about 3+ pitting edema, increased Lasix, a dose of metolazone will be given. Changes from previous H/P or p: No Changes Eyes: No Pain, No Vision change, No Conjunctivae inflammation, No Eyelid inflammation, No Other, No Redness ENT: No Ear pain, No Ear discharge, No Nose pain, No Nose discharge, No Nose congestion, No Mouth pain, No Mouth swelling, No Throat pain, No Throat swelling, No Other Cardiovascular: No Chest Pain, No Palpitations, No Orthopnea, No Paroxysmal Noc. Dyspnea; Edema; No Lt Headedness, No Other Respiratory: No Cough, No Dry; Shortness of breath; No SOB with excertion, No Wheezing, No Hemoptysis, No Pleuritic Pain, No Sputum, No Other Gastrointestinal: No Nausea, No Vomiting, No Abdominal Pain, No Diarrhea, No Constipation, No Melena, No Hematochezia, No Other Genitourinary: No Dysuria, No Frequency, No Incontinence, No Hematuria, No Retention, No Other Musculoskeletal: other (Bilateral lower extremity swelling); No neck pain, No shoulder pain, No arm pain, No back pain, No hand pain, No leg pain, No foot pain Skin: No Rash, No Lesions, No Jaundice, No Bruising; Other (Lower extremity redness) Objective Vitals Vital Signs Date Time Temp Pulse Resp B/P (MAP) Pulse Ox O2 Delivery O2 Flow Rate FiO2 09/10/24 14:12 87 16 100 09/10/24 14:06 Room Air* 0 21 09/10/24 11:30 128/96 09/10/24 09:00 98.4 98.4 Intake/Output Intake and Output 09/10/24 07:00 Intake Total 2400 ml Balance 2400 ml Intake Oral 2400 ml # Voids 10 # Bowel Movements 1 Exam HEENT pupils are reactive Neck is supple CV is S1-S2 regular rate and rhythm Respiratory bilateral basal crackles GI positive bowel sound Extremity 3+ 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 Medications Current Medications Medications Dose Ordered Sig/Katlyn Route Start Time Stop Time Status Last Admin Dose Admin Carvedilol 3.125 mg Q12HR PO 09/07/24 10:00 09/10/24 09:33 3.125 MG Sodium Chloride 10 ml Q8HR IV 09/07/24 06:00 09/10/24 09:34 10 ML Acetaminophen/ Hydrocodone Bitart 1 tab Q4HP PRN PO 09/07/24 04:45 09/08/24 20:48 1 TAB Ondansetron HCl 4 mg Q4HP PRN IV 09/07/24 04:45 Docusate Sodium 100 mg BIDPRN PRN PO 09/07/24 04:45 Acetaminophen 650 mg Q6HP PRN PO 09/07/24 04:45 Nitroglycerin 0.4 mg Q5MINP PRN SL 09/07/24 05:30 Morphine Sulfate 2 mg Q30M PRN IV 09/07/24 05:30 Aspirin 81 mg DAILY PO 09/08/24 10:00 09/10/24 09:33 81 MG Hydralazine HCl 10 mg Q6HP PRN IV 09/07/24 13:45 09/07/24 14:15 10 MG Albuterol 2.5 mg Q4HPRN PRN NEB 09/08/24 01:00 09/08/24 01:17 2.5 MG Albuterol 2.5 mg Q4HWA NEB 09/08/24 18:00 09/10/24 14:06 2.5 MG Ipratropium [place] 0.5 mg Q4HWA NEB 09/08/24 18:00 09/10/24 14:06 0.5 MG Furosemide 40 mg BIDD IV 09/10/24 18:00 Laboratory Results Laboratory Tests 09/08/24 09:45 09/10/24 13:31 Chemistry Test 09/10/24 13:31 Calcium Level 9.8 mg/dL (8.7-10.4) Assessment/Plan Assessment/Plan 48-year-old male with a known history of COPD, chronic tobacco use disorder, congestive heart failure, hypertension who initially presented to hospital with a bilateral lower extremity swelling found to have 1. Acute on chronic congestive heart failure exacerbation with systolic dysfunction 2. Acute kidney injury suspected secondary to vasomotor nephropathy 3. Mildly elevated troponin suspect secondary to acute CHF exacerbation 4. Transaminitis suspect secondary to passive congestion from congestive heart failure 5. COPD 6. Chronic tobacco use disorder 7. Cardiomyopathy with the EF of 20% 8. Severe pulmonary hypertension 9. Severe mitral regurgitation Increased IV diuretics 80 mg b.i.d., add a dose of metolazone 5 mg once, daily weights strict I&Os -beta alhaji, med nebs as needed. Plan discussed with: Patient My Orders Orders - MAURICIO MAYER MD Procedure Category Date Status Time Basic Metabolic Panel LAB 09/11/24 Verified 06:00 Complete Blood Count LAB 09/11/24 Verified 06:00 Furosemide Injection PHA 09/10/24 In Process (Lasix Injection) 18:00 Date of Service: Sep 10, 2024 Billing Provider: MAURICIO MAYER MD Common Visit Codes: [id number] INP/OBS CARE(MOD) MAURICIO MAYER MD Sep 10, 2024 14:38
[2024-09-10] MEDS ORDERED: FUROSEMIDE 40 MG/4 ML VIAL IV SCH (18:00)
--- NOTE | 2024-09-10 22:45 | DVHPN2 ---
Progress Note - Dictate Date Seen: Sep 10, 2024 Medical Necessity Reason Pt with a Central, PICC or Fol: No Subjective Patient was seen and evaluated in follow up. Patient is c/o lower ext pain and swelling. Lasix was increased. Echo showing EF 20%, severe hypokinesis, dilated chambers, severe MR, pulmonary hypertension with RVSP 61 mmHg. BUN 29, [place] 1.50. Telemetry reviewed. vital signs Vital Sign Date Time Temp Pulse Resp B/P (MAP) Pulse Ox O2 Delivery O2 Flow Rate FiO2 09/10/24 22:28 90 16 100 09/10/24 22:22 Room Air* 0 21 09/10/24 21:38 138/79 09/10/24 16:55 97.5 97.5 Total Intake and Output 09/09/24 09/09/24 09/10/24 15:00 23:00 07:00 Intake Total 1200 ml 1200 ml Balance 1200 ml 1200 ml medications Current Medications Medications Dose Ordered Sig/Katlyn Route Start Time Stop Time Status Last Admin Dose Admin Carvedilol 3.125 mg Q12HR PO 09/07/24 10:00 09/10/24 21:38 3.125 MG Sodium Chloride 10 ml Q8HR IV 09/07/24 06:00 09/10/24 21:39 10 ML Acetaminophen/ Hydrocodone Bitart 1 tab Q4HP PRN PO 09/07/24 04:45 09/08/24 20:48 1 TAB Ondansetron HCl 4 mg Q4HP PRN IV 09/07/24 04:45 Docusate Sodium 100 mg BIDPRN PRN PO 09/07/24 04:45 Acetaminophen 650 mg Q6HP PRN PO 09/07/24 04:45 Nitroglycerin 0.4 mg Q5MINP PRN SL 09/07/24 05:30 Morphine Sulfate 2 mg Q30M PRN IV 09/07/24 05:30 Aspirin 81 mg DAILY PO 09/08/24 10:00 09/10/24 09:33 81 MG Hydralazine HCl 10 mg Q6HP PRN IV 09/07/24 13:45 09/07/24 14:15 10 MG Albuterol 2.5 mg Q4HPRN PRN NEB 09/08/24 01:00 09/08/24 01:17 2.5 MG Albuterol 2.5 mg Q4HWA NEB 09/08/24 18:00 09/10/24 22:24 2.5 MG Ipratropium [place] 0.[address] [facility] 09/08/24 18:00 09/10/24 22:24 0.5 MG Furosemide 80 mg BIDD IV 09/10/24 14:45 09/10/24 16:08 80 MG objective GENERAL: Alert and oriented x 3. No acute distress. EYES: PERRL, EOMI. Anicteric. HENT: Moist mucous membranes. LUNGS: Clear to auscultation bilaterally. CARDIOVASCULAR: Regular rate and rhythm. ABDOMEN: Soft, nontender and nondistended. EXTREMITIES: BLE edema. NEUROLOGIC: No focal neurological deficits. SKIN: Warm, dry. laboratory and microbiology Laboratory Tests 09/10/24 13:31 09/08/24 09:45 Test 09/10/24 13:31 Range/Units Serum Glucose 99 74-106 mg/dL Problem List Acute on chronic HFrEF. Elevated troponin. 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 NSVT. SURY. Transaminitis . History of amphetamine use. Assessment/Plan Continued all current supportive medical care. Morphine and [place] for pain management. Aspirin. Coreg. Diuretics with Lasix. IV Hydralazine for SBP >150. Nitro SL. Additional plan as per the hospital course. Dietary Evaluation Review Comments: encourage pt to follow a cardiac diet, monitor PO intakes to meet 75% of his needs, monitor lab values anc changes of heart conditon and kidney functions. Expected Outcomes/Goals: gradual wt loss. Plan discussed with: Patient KATERINE OJEDA MD Sep 10, 2024 22:45
[2024-09-11] VITALS (20 sets, daily range): BP systolic 13–114; BP diastolic 66–87; PULSE 69–97; RESP 16–19; TEMP 97.3–98.2; O2SAT 88–100
[2024-09-11 04:57] LABS: Opiate Scree,Urine Neg (NEGATIVE)
[2024-09-11 05:00] LABS: Amphetamine Screen, Urine Neg (NEGATIVE); Barbiturate Scree,Urine Neg (NEGATIVE); Benzodiazephine Screen, Urine Neg (NEGATIVE); Cocaine Screen, Urine Neg (NEGATIVE); Phencyclidine Screen, Urine Neg (NEGATIVE)
[2024-09-11 07:12] LABS: Cannabinoid Screen, Urine Neg (NEGATIVE)
[2024-09-11 07:41] LABS: Anion Gap 10 (5-15); Carbon Dioxide 28 mmol/L (20-31); Chloride 102 mmol/L (98-107); Potassium 3.7 mmol/L (3.5-5.1); Sodium 140 mmol/L (136-145)
[2024-09-11 07:43] LABS: Calcium 9.8 mg/dL (8.7-10.4)
[2024-09-11 07:47] LABS: Glucose 84 mg/dL (74-106)
[2024-09-11 07:48] LABS: BUN/Creatinine Ratio 17.8 (10.0-20.0); Hematocrit 48.0 % (41.0-53.0); Hemoglobin 15.9 g/dL (13.5-17.5); Mean Corpuscular Hemoglobin 27.8 pg (28.0-32.0); Mean Corpuscular Volume 84.1 fL (80.0-100.0); Nucleated Red Blood Cells % 0.1 %
[2024-09-11 07:49] LABS: Blood Urea Nitrogen 27 mg/dL (9-23)
--- NOTE | 2024-09-11 13:19 | DVHPN2 ---
Subjective Patient was still has 3+ pitting edema, currently on IV diuretics Lasix 80 mg IV twice a day. Looks like patient has a known line. Strict I&Os and daily weight Changes from previous H/P or p: No Changes Eyes: No Pain, No Vision change, No Conjunctivae inflammation, No Eyelid inflammation, No Other, No Redness ENT: No Ear pain, No Ear discharge, No Nose pain, No Nose discharge, No Nose congestion, No Mouth pain, No Mouth swelling, No Throat pain, No Throat swelling, No Other Cardiovascular: No Chest Pain, No Palpitations, No Orthopnea, No Paroxysmal Noc. Dyspnea; Edema; No Lt Headedness, No Other Respiratory: No Cough, No Dry; Shortness of breath; No SOB with excertion, No Wheezing, No Hemoptysis, No Pleuritic Pain, No Sputum, No Other Gastrointestinal: No Nausea, No Vomiting, No Abdominal Pain, No Diarrhea, No Constipation, No Melena, No Hematochezia, No Other Genitourinary: No Dysuria, No Frequency, No Incontinence, No Hematuria, No Retention, No Other Musculoskeletal: other (Bilateral lower extremity swelling); No neck pain, No shoulder pain, No arm pain, No back pain, No hand pain, No leg pain, No foot pain Skin: No Rash, No Lesions, No Jaundice, No Bruising; Other (Lower extremity redness) Objective Vitals Vital Signs Date Time Temp Pulse Resp B/P (MAP) Pulse Ox O2 Delivery O2 Flow Rate FiO2 09/11/24 11:15 84 93/62 09/11/24 09:55 16 100 09/11/24 09:49 Room Air* 0 21 09/11/24 09:00 98.1 98.1 Intake/Output Intake and Output 09/11/24 07:00 Intake Total 1850 ml Output Total 1100 ml Balance 750 ml Intake Oral 1850 ml Output Urine Total 1100 ml # Voids 16 # Bowel Movements 1 Exam HEENT pupils are reactive Neck is supple CV is S1-S2 regular rate and rhythm Respiratory bilateral basal crackles GI positive bowel sound Extremity 3+ 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 Medications Current Medications Medications Dose Ordered Sig/Katlyn Route Start Time Stop Time Status Last Admin Dose Admin Carvedilol 3.125 mg Q12HR PO 09/07/24 10:00 09/11/24 10:06 3.125 MG Sodium Chloride 10 ml Q8HR IV 09/07/24 06:00 09/11/24 10:06 10 ML Acetaminophen/ Hydrocodone Bitart 1 tab Q4HP PRN PO 09/07/24 04:45 09/11/24 10:24 1 TAB Ondansetron HCl 4 mg Q4HP PRN IV 09/07/24 04:45 Docusate Sodium 100 mg BIDPRN PRN PO 09/07/24 04:45 Acetaminophen 650 mg Q6HP PRN PO 09/07/24 04:45 Nitroglycerin 0.4 mg Q5MINP PRN SL 09/07/24 05:30 Morphine Sulfate 2 mg Q30M PRN IV 09/07/24 05:30 Aspirin 81 mg DAILY PO 09/08/24 10:00 09/11/24 10:05 81 MG Hydralazine HCl 10 mg Q6HP PRN IV 09/07/24 13:45 09/07/24 14:15 10 MG Albuterol 2.5 mg Q4HPRN PRN NEB 09/08/24 01:00 09/08/24 01:17 2.5 MG Albuterol 2.5 mg Q4HWA NEB 09/08/24 18:00 09/11/24 09:49 2.5 MG Ipratropium [place] 0.5 mg Q4HWA NEB 09/08/24 18:00 09/11/24 09:49 0.5 MG Furosemide 80 mg BIDD IV 09/10/24 14:45 09/11/24 05:30 80 MG Laboratory Results Laboratory Tests 09/11/24 06:01 Chemistry Test 09/10/24 13:31 09/11/24 06:01 Calcium Level 9.8 mg/dL (8.7-10.4) 9.8 mg/dL (8.7-10.4) Assessment/Plan Assessment/Plan 48-year-old male with a known history of COPD, chronic tobacco use disorder, congestive heart failure, hypertension who initially presented to hospital with a bilateral lower extremity swelling found to have 1. Acute on chronic congestive heart failure exacerbation with systolic dysfunction 2. Acute kidney injury suspected secondary to vasomotor nephropathy with underlying CKD 3. Mildly elevated troponin suspect secondary to acute CHF exacerbation 4. Transaminitis suspect secondary to passive congestion from congestive heart failure 5. COPD currently not in exacerbation 6. Chronic tobacco use disorder 7. Cardiomyopathy with the EF of 20% 8. Severe pulmonary hypertension 9. Severe mitral regurgitation - IV diuretics 80 mg b.i.d., daily weights strict I&Os -add one more dose of metolazone today -beta alhaji, med nebs as needed. Plan discussed with: Patient My Orders Orders - MAURICIO MAYER MD Procedure Category Date Status Time Furosemide Injection PHA 09/10/24 In Process (Lasix Injection) 14:45 Date of Service: Sep 11, 2024 Billing Provider: MAURICIO MAYER MD Common Visit Codes: [id number] INP/OBS CARE(MOD) MAURICIO MAYER MD Sep 11, 2024 13:19
[2024-09-11] MEDS: POTASSIUM EFFERVESENT TAB 25 MEQ GT SCH (21:44)
[2024-09-12] VITALS (20 sets, daily range): BP systolic 96–141; BP diastolic 49–104; PULSE 72–92; RESP 15–18; TEMP 97.4–98; O2SAT 91–100
--- NOTE | 2024-09-12 00:01 | DVHPN2 ---
Progress Note - Dictate Date Seen: Sep 11, 2024 Medical Necessity Reason Pt with a Central, PICC or Fol: No Subjective Patient was seen and evaluated in follow up. No overnight events. Patient diuresing with Lasix, remains with BLE edema. CBC is unremarkable. BUN 27, [place] 1.52. UDS is negative. Telemetry reviewed. vital signs Vital Sign Date Time Temp Pulse Resp B/P (MAP) Pulse Ox O2 Delivery O2 Flow Rate FiO2 09/11/24 22:10 88 16 100 09/11/24 22:00 Room Air 0.0 09/11/24 22:00 21 09/11/24 21:45 117/86 09/11/24 21:00 97.5 97.5 Total Intake and Output 09/11/24 09/11/24 09/12/24 15:00 23:00 07:00 Intake Total 700 ml Output Total 1000 ml Balance -1000 ml 700 ml medications Current Medications Medications Dose Ordered Sig/Katlyn Route Start Time Stop Time Status Last Admin Dose Admin Carvedilol 3.125 mg Q12HR PO 09/07/24 10:00 09/11/24 21:45 3.125 MG Sodium Chloride 10 ml Q8HR IV 09/07/24 06:00 09/11/24 21:44 10 ML Acetaminophen/ Hydrocodone Bitart 1 tab Q4HP PRN PO 09/07/24 04:45 09/11/24 10:24 1 TAB Ondansetron HCl 4 mg Q4HP PRN IV 09/07/24 04:45 Docusate Sodium 100 mg BIDPRN PRN PO 09/07/24 04:45 Acetaminophen 650 mg Q6HP PRN PO 09/07/24 04:45 Nitroglycerin 0.4 mg Q5MINP PRN SL 09/07/24 05:30 Morphine Sulfate 2 mg Q30M PRN IV 09/07/24 05:30 Aspirin 81 mg DAILY PO 09/08/24 10:00 09/11/24 10:05 81 MG Hydralazine HCl 10 mg Q6HP PRN IV 09/07/24 13:45 09/07/24 14:15 10 MG Albuterol 2.5 mg Q4HPRN PRN NEB 09/08/24 01:00 09/08/24 01:17 2.5 MG Albuterol 2.5 mg Q4HWA NEB 09/08/24 18:00 09/11/24 22:10 2.5 MG Ipratropium [place] 0.5 mg Q4HWA [facility] 09/08/24 18:00 09/11/24 22:10 0.5 MG Furosemide 80 mg BIDD IV 09/10/24 14:45 09/11/24 18:34 80 MG Potassium Bicarbonate 25 meq BID GT 09/11/24 22:00 09/11/24 21:44 25 MEQ objective GENERAL: Alert and oriented x 3. No acute distress. EYES: PERRL, EOMI. Anicteric. HENT: Moist mucous membranes. LUNGS: Clear to auscultation bilaterally. CARDIOVASCULAR: Regular rate and rhythm. ABDOMEN: Soft, nontender and nondistended. EXTREMITIES: BLE edema. NEUROLOGIC: No focal neurological deficits. SKIN: Warm, dry. laboratory and microbiology Laboratory Tests 09/11/24 06:01 Test 09/11/24 06:01 Range/Units Serum Glucose 84 74-106 mg/dL Problem List Acute on chronic HFrEF. Elevated troponin. 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 NSVT. SURY. Transaminitis . History of amphetamine use. Assessment/Plan Continued all current supportive medical care. Morphine and [place] for pain management. Aspirin. Coreg. Diuretics with Lasix. IV Hydralazine for SBP >150. Nitro SL. Additional plan as per the hospital course. Dietary Evaluation Review Comments: encourage pt to follow a cardiac diet, monitor PO intakes to meet 75% of his needs, monitor lab values anc changes of heart conditon and kidney functions. Expected Outcomes/Goals: gradual wt loss. Plan discussed with: Patient KATERINE OJEDA MD Sep 12, 2024 00:01
[2024-09-12 07:07] LABS: Hemoglobin 16.8 g/dL (13.5-17.5); Mean Corpuscular Hemoglobin 27.9 pg (28.0-32.0); Mean Corpuscular Volume 84.2 fL (80.0-100.0)
[2024-09-12 07:10] LABS: Hematocrit 50.7 % (41.0-53.0); Nucleated Red Blood Cells % 0.2 %
[2024-09-12 07:13] LABS: Potassium 3.9 mmol/L (3.5-5.1); Sodium 139 mmol/L (136-145)
[2024-09-12 07:14] LABS: Anion Gap 8 (5-15); Calcium 9.7 mg/dL (8.7-10.4)
[2024-09-12 07:19] LABS: BUN/Creatinine Ratio 20.8 (10.0-20.0); Glucose 90 mg/dL (74-106)
[2024-09-12 07:20] LABS: Magnesium 2.1 mg/dL (1.6-2.6)
[2024-09-12 07:21] LABS: Blood Urea Nitrogen 32 mg/dL (9-23); Carbon Dioxide 36 mmol/L (20-31); Chloride 95 mmol/L (98-107)
[2024-09-12] MEDS ORDERED: SODIUM CHLORIDE 0.9% 250 ML IV ONE (15:15)
--- NOTE | 2024-09-12 15:20 | DVHPN2 ---
Subjective Patient is feeling well. He complains of having some muscle cramps. Ongoing pedal edema. Reviewed: H&P Changes from previous H/P or p: No Changes General: Per HPI Eyes: No Pain, No Vision change, No Conjunctivae inflammation, No Eyelid inflammation, No Other, No Redness ENT: No Ear pain, No Ear discharge, No Nose pain, No Nose discharge, No Nose congestion, No Mouth pain, No Mouth swelling, No Throat pain, No Throat swelling, No Other Cardiovascular: No Chest Pain, No Palpitations, No Orthopnea, No Paroxysmal Noc. Dyspnea; Edema; No Lt Headedness, No Other Respiratory: No Cough, No Dry; Shortness of breath; No SOB with excertion, No Wheezing, No Hemoptysis, No Pleuritic Pain, No Sputum, No Other Gastrointestinal: No Nausea, No Vomiting, No Abdominal Pain, No Diarrhea, No Constipation, No Melena, No Hematochezia, No Other Genitourinary: No Dysuria, No Frequency, No Incontinence, No Hematuria, No Retention, No Other Musculoskeletal: other (Bilateral lower extremity swelling); No neck pain, No shoulder pain, No arm pain, No back pain, No hand pain, No leg pain, No foot pain Skin: No Rash, No Lesions, No Jaundice, No Bruising; Other (Lower extremity redness) Objective Vitals Vital Signs Date Time Temp Pulse Resp B/P (MAP) Pulse Ox O2 Delivery O2 Flow Rate FiO2 09/12/24 14:38 72 16 100 09/12/24 12:30 97.6 96/49 (65) 97.6 09/12/24 10:00 Room Air 0.0 09/12/24 10:00 21 Intake/Output Intake and Output 09/12/24 07:00 Intake Total 1900 ml Output Total 2900 ml Balance -1000 ml Intake Oral 1900 ml Output Urine Total 2900 ml # Voids 5 Exam GEN: Healthy appearing, well-developed, NAD. HEENT: NC/AT; MMM. CV: RRR, no m/r/g. LUNGS: CTAB, no w/r/c. ABD: Soft, NT/ND, NBS, no masses or organomegaly. EXT: skin Warm, well perfused. no rashes. Pedal edema 2+ up to knees bilaterally NEURO: Ambulating with no limitations. No focal deficits. Medications Current Medications Medications Dose Ordered Sig/Katlyn Route Start Time Stop Time Status Last Admin Dose Admin Carvedilol 3.125 mg Q12HR PO 09/07/24 10:00 09/12/24 10:25 3.125 MG Sodium Chloride 10 ml Q8HR IV 09/07/24 06:00 09/12/24 14:24 10 ML Acetaminophen/ Hydrocodone Bitart 1 tab Q4HP PRN PO 09/07/24 04:45 09/12/24 10:25 1 TAB Ondansetron HCl 4 mg Q4HP PRN IV 09/07/24 04:45 Docusate Sodium 100 mg BIDPRN PRN PO 09/07/24 04:45 Acetaminophen 650 mg Q6HP PRN PO 09/07/24 04:45 Nitroglycerin 0.4 mg Q5MINP PRN SL 09/07/24 05:30 Morphine Sulfate 2 mg Q30M PRN IV 09/07/24 05:30 Aspirin 81 mg DAILY PO 09/08/24 10:00 09/12/24 10:29 81 MG Hydralazine HCl 10 mg Q6HP PRN IV 09/07/24 13:45 09/07/24 14:15 10 MG Albuterol 2.5 mg Q4HPRN PRN NEB 09/08/24 01:00 09/08/24 01:17 2.5 MG Albuterol 2.5 mg Q4HWA NEB 09/08/24 18:00 09/12/24 14:29 2.5 MG Ipratropium [place] 0.5 mg Q4HWA NEB 09/08/24 18:00 09/12/24 14:29 0.5 MG Furosemide 80 mg BIDD IV 09/10/24 14:45 09/12/24 05:48 80 MG Potassium Bicarbonate 25 meq BID GT 09/11/24 22:00 09/12/24 10:24 25 MEQ Laboratory Results Laboratory Tests 09/12/24 06:13 Chemistry Test 09/12/24 06:13 Calcium Level 9.7 mg/dL (8.7-10.4) Magnesium Level 2.1 mg/dL (1.6-2.6) Cardiac Markers Test 09/12/24 06:13 B-Type Natriuretic Peptide 619.50 pg/mL (0-100) Labs and/or images reviewed: Labs reviewed by me, Image(s) reviewed by me Assessment/Plan Assessment/Plan 48-year-old male with a known history of COPD, chronic tobacco use disorder, congestive heart failure, hypertension who initially presented to hospital with a bilateral lower extremity swelling found to have 1. Acute on chronic congestive heart failure exacerbation with systolic dysfunction 2. Acute kidney injury suspected secondary to vasomotor nephropathy with underlying CKD 3. Mildly elevated troponin suspect secondary to acute CHF exacerbation 4. Transaminitis suspect secondary to passive congestion from congestive heart failure 5. COPD currently not in exacerbation 6. Chronic tobacco use disorder 7. Cardiomyopathy with the EF of 20% 8. Severe pulmonary hypertension 9. Severe mitral regurgitation Contraction alkalosis 09/12- taking over case from Dr. Aburto.. Patient appears to be here for acute AD HF, COPD not in exacerbation, transaminitis with hyperbilirubinemia. Patient was being diuresed with 80 IV Lasix b.i.d. with prn daily metolazone. Today patient appears to have mild creatinine rise, there is some significant bicarb appears likely contraction alkalosis from diuresis. We will scale back on diuresis and try acetazolamide. Patient is still has significant bilateral pedal edema but no rales. We will also need leg elevation during day. We will add SCDs tonight and nightly -IV Lasix 20 IV b.i.d., -start acetazolamide 500 IV daily. -no metolazone today -beta alhaji, med nebs as needed. Cardiac diet DVT prophylaxis ambulating GI prophylaxis tolerating p.o. Tele Full code Plan discussed with: Patient My Orders Orders - LIBRADO HUNTER MD Procedure Category Date Status Time Furosemide Injection PHA 09/13/24 Transmitted (Lasix Injection) 10:00 Acetazolamide PHA 09/13/24 Transmitted Injection (Diamox 10:00 Acetazolamide PHA 09/12/24 Transmitted Injection (Diamox 15:15 NS PHA 09/12/24 Transmitted 15:15 Basic Metabolic Panel LAB 09/12/24 Transmitted 19:00 Date of Service: Sep 12, 2024 Billing Provider: LIBRADO HUNTER MD Common Visit Codes: [id number] INP/OBS CARE(HIGH) LIBRADO HUNTER MD Sep 12, 2024 15:20
[2024-09-12] MEDS: acetaZOLAMIDE SODIUM 500 MG VL IV ONE (17:28)
[2024-09-12 20:02] LABS: Potassium 4.0 mmol/L (3.5-5.1); Sodium 138 mmol/L (136-145)
[2024-09-12 20:03] LABS: Anion Gap 6 (5-15)
[2024-09-12 20:04] LABS: Calcium 10.0 mg/dL (8.7-10.4)
[2024-09-12 20:06] LABS: Carbon Dioxide 37 mmol/L (20-31); Chloride 95 mmol/L (98-107)
[2024-09-12 20:08] LABS: BUN/Creatinine Ratio 20.0 (10.0-20.0); Glucose 83 mg/dL (74-106)
[2024-09-12 20:11] LABS: Blood Urea Nitrogen 30 mg/dL (9-23)
--- NOTE | 2024-09-12 22:57 | DVHPN2 ---
Progress Note - Dictate Date Seen: Sep 12, 2024 Medical Necessity Reason Pt with a Central, PICC or Fol: No Subjective Patient was seen and evaluated in follow up. Patient complains of muscle cramping and pedal edema. 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 Telemetry reviewed. vital signs Vital Sign Date Time Temp Pulse Resp B/P (MAP) Pulse Ox O2 Delivery O2 Flow Rate FiO2 09/12/24 14:38 72 16 100 09/12/24 12:30 97.6 96/49 (65) 97.6 09/12/24 10:00 Room Air 0.0 09/12/24 10:00 21 Total Intake and Output 09/11/24 09/11/24 09/12/24 15:00 23:00 07:00 Intake Total 700 ml 1200 ml Output Total 1000 ml 1900 ml Balance -1000 ml 700 ml -700 ml medications Current Medications Medications Dose Ordered Sig/Katlyn Route Start Time Stop Time Status Last Admin Dose Admin Carvedilol 3.125 mg Q12HR PO 09/07/24 10:00 09/12/24 10:25 3.125 MG Sodium Chloride 10 ml Q8HR IV 09/07/24 06:00 09/12/24 14:24 10 ML Acetaminophen/ Hydrocodone Bitart 1 tab Q4HP PRN PO 09/07/24 04:45 09/12/24 10:25 1 TAB Ondansetron HCl 4 mg Q4HP PRN IV 09/07/24 04:45 Docusate Sodium 100 mg BIDPRN PRN PO 09/07/24 04:45 Acetaminophen 650 mg Q6HP PRN PO 09/07/24 04:45 Nitroglycerin 0.4 mg Q5MINP PRN SL 09/07/24 05:30 Morphine Sulfate 2 mg Q30M PRN IV 09/07/24 05:30 Aspirin 81 mg DAILY PO 09/08/24 10:00 09/12/24 10:29 81 MG Hydralazine HCl 10 mg Q6HP PRN IV 09/07/24 13:45 09/07/24 14:15 10 MG Albuterol 2.5 mg Q4HPRN PRN NEB 09/08/24 01:00 09/08/24 01:17 2.5 MG Albuterol 2.5 mg Q4HWA NEB 09/08/24 18:00 09/12/24 14:29 2.5 MG Ipratropium [place] 0.5 mg Q4HWA NEB 09/08/24 18:00 09/12/24 14:29 0.5 MG Potassium Bicarbonate 25 meq BID GT 09/11/24 22:00 09/12/24 10:24 25 MEQ Furosemide 20 mg DAILY IV 09/13/24 10:00 Acetazolamide Sodium 500 mg DAILY IV 09/13/24 10:00 objective GENERAL: Alert and oriented x 3. No acute distress. EYES: PERRL, EOMI. Anicteric. HENT: Moist mucous membranes. LUNGS: Clear to auscultation bilaterally. CARDIOVASCULAR: Regular rate and rhythm. ABDOMEN: Soft, nontender and nondistended. EXTREMITIES: BLE edema. NEUROLOGIC: No focal neurological deficits. SKIN: Warm, dry. laboratory and microbiology Laboratory Tests 09/12/24 06:13 Test 09/12/24 06:13 Range/Units Serum Glucose 90 74-106 mg/dL Problem List Acute on chronic HFrEF. Elevated troponin. 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 NSVT. SURY. Transaminitis . History of amphetamine use. Assessment/Plan Continued all current supportive medical care. Morphine and [place] for pain management. Aspirin. Coreg. Diuretics with Lasix. IV Hydralazine for SBP >150. Nitro SL. Additional plan as per the hospital course. Dietary Evaluation Review Comments: encourage pt to follow a cardiac diet, monitor PO intakes to meet 75% of his needs, monitor lab values anc changes of heart conditon and kidney functions. Expected Outcomes/Goals: gradual wt loss. Plan discussed with: Patient KATERINE OJEDA MD Sep 12, 2024 16:29
[2024-09-13] VITALS (18 sets, daily range): BP systolic 109–139; BP diastolic 52–82; PULSE 68–100; RESP 16–20; TEMP 95.7–98.7; O2SAT 96–100
[2024-09-13 06:50] LABS: Nucleated Red Blood Cells % 0.1 %
[2024-09-13 06:52] LABS: Hematocrit 50.1 % (41.0-53.0); Hemoglobin 16.8 g/dL (13.5-17.5); Mean Corpuscular Hemoglobin 28.0 pg (28.0-32.0); Mean Corpuscular Volume 83.5 fL (80.0-100.0)
[2024-09-13 07:10] LABS: Alanine Aminotransferase 38 U/L (7-40); Albumin 4.2 g/dL (3.2-4.8); Alkaline Phosphatase 109 U/L (46-116); Anion Gap 9 (5-15); BUN/Creatinine Ratio 19.9 (10.0-20.0); Calcium 10.3 mg/dL (8.7-10.4); Carbon Dioxide 28 mmol/L (20-31); Chloride 99 mmol/L (98-107); Glucose 90 mg/dL (74-106); Sodium 136 mmol/L (136-145); Total Protein 6.7 g/dL (5.7-8.2)
[2024-09-13 07:11] LABS: Bilirubin, Total 0.7 mg/dL (0.2-1.0)
[2024-09-13 07:18] LABS: Blood Urea Nitrogen 28 mg/dL (9-23); Potassium 3.4 mmol/L (3.5-5.1)
[2024-09-13] MEDS ORDERED: FUROSEMIDE 40 MG/4 ML VIAL IV SCH (10:00)
[2024-09-13 11:43] LABS: Magnesium 2.3 mg/dL (1.6-2.6)
--- NOTE | 2024-09-13 11:45 | DVH ---
Left lower extremity venous duplex Clinical History: continuning edema despite diuresis Comparison: None Findings: Duplex Doppler evaluation of the deep venous system of the left lower extremity from the common femor al vein to the popliteal vein including color Doppler and spectral/pulsed waveform analysis was perfo rmed. The common femoral vein demonstrates appropriate compressibility and waveform variability. There is compressibility/patency of the great saphenous vein at the proximal thigh. The femoral vein demonstrates appropriate compressibility and waveform variability. The deep femoral vein demonstrates appropriate compressibility and waveform variability. The popliteal vein demonstrates appropriate compressibility and waveform variability. There is normal compressibility at the tibioperoneal trunk. Impression: No left femoropopliteal venous thrombosis. If clinical concern/symptoms persist or worsen, short-interval follow-up study is suggested.
[2024-09-13] MEDS: acetaZOLAMIDE SODIUM 500 MG VL IV SCH (13:08)
--- NOTE | 2024-09-13 13:15 | DVHPN2 ---
Progress Note - Dictate Date Seen: Sep 13, 2024 Medical Necessity Reason Pt with a Central, PICC or Fol: No Subjective Patient was seen and evaluated in follow up. Patient is c/o muscle aches. K 3.4, BUN 28, [employer] 1.41. LLE Venous Duplex shows no left femoropopliteal venous thrombosis. Telemetry reviewed. vital signs Vital Sign Date Time Temp Pulse Resp B/P (MAP) Pulse Ox O2 Delivery O2 Flow Rate FiO2 09/13/24 10:54 82 111/64 09/13/24 10:06 16 99 09/13/24 10:00 Room Air* 0 21 09/13/24 09:00 95.7 95.7 Total Intake and Output 09/12/24 09/12/24 09/13/24 15:00 23:00 07:00 Intake Total 700 ml 800 ml Output Total 1000 ml Balance -300 ml 800 ml medications Current Medications Medications Dose Ordered Sig/Katlyn Route Start Time Stop Time Status Last Admin Dose Admin Carvedilol 3.125 mg Q12HR PO 09/07/24 10:00 09/13/24 09:54 3.125 MG Sodium Chloride 10 ml Q8HR IV 09/07/24 06:00 09/13/24 06:17 10 ML Acetaminophen/ Hydrocodone Bitart 1 tab Q4HP PRN PO 09/07/24 04:45 09/12/24 21:32 1 TAB Ondansetron HCl 4 mg Q4HP PRN IV 09/07/24 04:45 Docusate Sodium 100 mg BIDPRN PRN PO 09/07/24 04:45 Acetaminophen 650 mg Q6HP PRN PO 09/07/24 04:45 Nitroglycerin 0.4 mg Q5MINP PRN SL 09/07/24 05:30 Morphine Sulfate 2 mg Q30M PRN IV 09/07/24 05:30 Aspirin 81 mg DAILY PO 09/08/24 10:00 09/13/24 09:53 81 MG Hydralazine HCl 10 mg Q6HP PRN IV 09/07/24 13:45 09/07/24 14:15 10 MG Albuterol 2.5 mg Q4HPRN PRN NEB 09/08/24 01:00 09/08/24 01:17 2.5 MG Albuterol 2.5 mg Q4HWA NEB 09/08/24 18:00 09/13/24 10:00 2.5 MG Ipratropium [place] 0.5 mg [facility] 09/08/24 18:00 09/13/24 10:00 0.5 MG Potassium Bicarbonate 25 meq BID GT 09/11/24 22:00 09/13/24 09:54 25 MEQ Acetazolamide Sodium 500 mg DAILY IV 09/13/24 10:00 Furosemide 40 mg TID IV 09/13/24 14:00 objective GENERAL: Alert and oriented x 3. No acute distress. EYES: PERRL, EOMI. Anicteric. HENT: Moist mucous membranes. LUNGS: Clear to auscultation bilaterally. CARDIOVASCULAR: Regular rate and rhythm. ABDOMEN: Soft, nontender and nondistended. EXTREMITIES: BLE edema. NEUROLOGIC: No focal neurological deficits. SKIN: Warm, dry. laboratory and microbiology Laboratory Tests 09/13/24 05:37 Test 09/13/24 05:37 Range/Units Serum Glucose 90 74-106 mg/dL Problem List Acute on chronic HFrEF. Elevated troponin. 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 NSVT. SURY. Transaminitis . History of amphetamine use. Assessment/Plan Continued all current supportive medical care. Morphine and [place] for pain management. Aspirin. Coreg. Diuretics with Lasix. IV Hydralazine for SBP >150. Nitro SL. Additional plan as per the hospital course. Dietary Evaluation Review Comments: encourage pt to follow a cardiac diet, monitor PO intakes to meet 75% of his needs, monitor lab values anc changes of heart conditon and kidney functions. Expected Outcomes/Goals: gradual wt loss. Plan discussed with: Patient KATERINE OJEDA MD Sep 13, 2024 12:34
--- NOTE | 2024-09-13 15:14 | DVHPN2 ---
Subjective Patient is feeling well. He complains of having some muscle cramps. Ongoing pedal edema. Reviewed: H&P Changes from previous H/P or p: No Changes General: Per HPI Eyes: No Pain, No Vision change, No Conjunctivae inflammation, No Eyelid inflammation, No Other, No Redness ENT: No Ear pain, No Ear discharge, No Nose pain, No Nose discharge, No Nose congestion, No Mouth pain, No Mouth swelling, No Throat pain, No Throat swelling, No Other Cardiovascular: No Chest Pain, No Palpitations, No Orthopnea, No Paroxysmal Noc. Dyspnea; Edema; No Lt Headedness, No Other Respiratory: No Cough, No Dry; Shortness of breath; No SOB with excertion, No Wheezing, No Hemoptysis, No Pleuritic Pain, No Sputum, No Other Gastrointestinal: No Nausea, No Vomiting, No Abdominal Pain, No Diarrhea, No Constipation, No Melena, No Hematochezia, No Other Genitourinary: No Dysuria, No Frequency, No Incontinence, No Hematuria, No Retention, No Other Musculoskeletal: other (Bilateral lower extremity swelling); No neck pain, No shoulder pain, No arm pain, No back pain, No hand pain, No leg pain, No foot pain Skin: No Rash, No Lesions, No Jaundice, No Bruising; Other (Lower extremity redness) Objective Vitals Vital Signs Date Time Temp Pulse Resp B/P (MAP) Pulse Ox O2 Delivery O2 Flow Rate FiO2 09/13/24 14:44 82 09/13/24 14:34 18 100 09/13/24 14:17 Room Air 09/13/24 14:17 0 21 09/13/24 13:08 144/88 09/13/24 13:00 96.8 96.8 Intake/Output Intake and Output 09/13/24 07:00 Intake Total 1500 ml Output Total 1000 ml Balance 500 ml Intake Oral 1500 ml Output Urine Total 1000 ml # Voids 8 # Bowel Movements 1 Exam GEN: Healthy appearing, well-developed, NAD. HEENT: NC/AT; MMM. CV: RRR, no m/r/g. LUNGS: CTAB, no w/r/c. ABD: Soft, NT/ND, NBS, no masses or organomegaly. EXT: skin Warm, well perfused. no rashes. Pedal edema 2+ up to knees bilaterally NEURO: Ambulating with no limitations. No focal deficits. Medications Current Medications Medications Dose Ordered Sig/Katlyn Route Start Time Stop Time Status Last Admin Dose Admin Carvedilol 3.125 mg Q12HR PO 09/07/24 10:00 09/13/24 09:54 3.125 MG Sodium Chloride 10 ml Q8HR IV 09/07/24 06:00 09/13/24 14:21 10 ML Acetaminophen/ Hydrocodone Bitart 1 tab Q4HP PRN PO 09/07/24 04:45 09/12/24 21:32 1 TAB Ondansetron HCl 4 mg Q4HP PRN IV 09/07/24 04:45 Docusate Sodium 100 mg BIDPRN PRN PO 09/07/24 04:45 Acetaminophen 650 mg Q6HP PRN PO 09/07/24 04:45 Nitroglycerin 0.4 mg Q5MINP PRN SL 09/07/24 05:30 Morphine Sulfate 2 mg Q30M PRN IV 09/07/24 05:30 Aspirin 81 mg DAILY PO 09/08/24 10:00 09/13/24 09:53 81 MG Hydralazine HCl 10 mg Q6HP PRN IV 09/07/24 13:45 09/07/24 14:15 10 MG Albuterol 2.5 mg Q4HPRN PRN NEB 09/08/24 01:00 09/08/24 01:17 2.5 MG Albuterol 2.5 mg Q4HWA NEB 09/08/24 18:00 09/13/24 14:28 2.5 MG Ipratropium [place] 0.5 mg Q4HWA NEB 09/08/24 18:00 09/13/24 14:28 0.5 MG Potassium Bicarbonate 25 meq BID GT 09/11/24 22:00 09/13/24 09:54 25 MEQ Acetazolamide Sodium 500 mg DAILY IV 09/13/24 10:00 09/13/24 13:08 500 MG Furosemide 40 mg TID IV 09/13/24 14:00 Laboratory Results Laboratory Tests 09/13/24 05:37 Chemistry Test 09/12/24 19:31 09/13/24 05:37 Calcium Level 10.0 mg/dL (8.7-10.4) 10.3 mg/dL (8.7-10.4) Albumin 4.2 g/dL (3.2-4.8) Magnesium Level 2.3 mg/dL (1.6-2.6) Phosphorus Level 4.7 mg/dL (2.4-5.1) Total Protein 6.7 g/dL (5.7-8.2) LFT Test 09/13/24 05:37 Alanine Aminotransferase (ALT) 38 U/L (7-40) Alkaline Phosphatase 109 U/L (46-116) Aspartate Amino Transferase (AST) 27 U/L (13-40) Total Bilirubin 0.7 mg/dL (0.2-1.0) Labs and/or images reviewed: Labs reviewed by me, Image(s) reviewed by me Assessment/Plan Assessment/Plan 48-year-old male with a known history of COPD, chronic tobacco use disorder, congestive heart failure, hypertension who initially presented to hospital with a bilateral lower extremity swelling found to have 1. Acute on chronic congestive heart failure exacerbation with systolic dysfunction 2. Acute kidney injury suspected secondary to vasomotor nephropathy with underlying CKD 3. Mildly elevated troponin suspect secondary to acute CHF exacerbation 4. Transaminitis suspect secondary to passive congestion from congestive heart failure 5. COPD currently not in exacerbation 6. Chronic tobacco use disorder 7. Cardiomyopathy with the EF of 20% 8. Severe pulmonary hypertension 9. Severe mitral regurgitation Contraction alkalosis 09/12- taking over case from Dr. Aburto.. Patient appears to be here for acute AD HF, COPD not in exacerbation, transaminitis with hyperbilirubinemia. Patient was being diuresed with 80 IV Lasix b.i.d. with prn daily metolazone. Today patient appears to have mild creatinine rise, there is some significant bicarb appears likely contraction alkalosis from diuresis. We will scale back on diuresis and try acetazolamide. Patient is still has significant bilateral pedal edema but no rales. We will also need leg elevation during day. We will add SCDs tonight and nightly 09/13- patient has a improving labs and leg edema. Contraction alkalosis is improving with acetazolamide. We will increase Lasix back as he is still having lower extremity edema. Lungs are clear. Left leg edema is significantly more. We will get DVT study rule out DVT on left leg. Continue diuresis. -IV Lasix 40 IV t.i.d. -start acetazolamide 500 IV daily. -no metolazone -beta alhaji, med nebs as needed. Cardiac diet DVT prophylaxis ambulating GI prophylaxis tolerating p.o. Tele Full code Plan discussed with: Patient My Orders Orders - LIBRADO HUNTER MD Procedure Category Date Status Time Acetazolamide PHA 09/13/24 In Process Injection (Diamox 10:00 Furosemide Injection PHA 09/13/24 In Process (Lasix Injection) 14:00 Lt Lower Dvt 09/13/24 Resulted 09:55 Date of Service: Sep 13, 2024 Billing Provider: LIBRADO HUNTER MD Common Visit Codes: [id number] INP/OBS CARE(HIGH) LIBRADO HUNTER MD Sep 13, 2024 15:14
[2024-09-13] MEDS: FUROSEMIDE 40 MG/4 ML VIAL IV SCH (15:18)
[2024-09-14] VITALS (21 sets, daily range): BP systolic 101–124; BP diastolic 50–84; PULSE 75–96; RESP 16–20; TEMP 97.4–99.1; O2SAT 95–100
[2024-09-14 06:30] LABS: Alanine Aminotransferase 33 U/L (7-40); Albumin 3.9 g/dL (3.2-4.8); Alkaline Phosphatase 91 U/L (46-116); Anion Gap 11 (5-15); BUN/Creatinine Ratio 23.0 (10.0-20.0); Calcium 10.1 mg/dL (8.7-10.4); Carbon Dioxide 26 mmol/L (20-31); Chloride 100 mmol/L (98-107); Glucose 84 mg/dL (74-106); Potassium 3.7 mmol/L (3.5-5.1); Sodium 137 mmol/L (136-145); Total Protein 6.2 g/dL (5.7-8.2)
[2024-09-14 06:31] LABS: Bilirubin, Total 1.0 mg/dL (0.2-1.0)
[2024-09-14 06:34] LABS: Blood Urea Nitrogen 32 mg/dL (9-23)
--- NOTE | 2024-09-14 14:40 | DVHPN2 ---
Subjective Patient is feeling well. He complains of having some muscle cramps. Ongoing pedal edema. Reviewed: H&P Changes from previous H/P or p: No Changes General: Per HPI Eyes: No Pain, No Vision change, No Conjunctivae inflammation, No Eyelid inflammation, No Other, No Redness ENT: No Ear pain, No Ear discharge, No Nose pain, No Nose discharge, No Nose congestion, No Mouth pain, No Mouth swelling, No Throat pain, No Throat swelling, No Other Cardiovascular: No Chest Pain, No Palpitations, No Orthopnea, No Paroxysmal Noc. Dyspnea; Edema; No Lt Headedness, No Other Respiratory: No Cough, No Dry; Shortness of breath; No SOB with excertion, No Wheezing, No Hemoptysis, No Pleuritic Pain, No Sputum, No Other Gastrointestinal: No Nausea, No Vomiting, No Abdominal Pain, No Diarrhea, No Constipation, No Melena, No Hematochezia, No Other Genitourinary: No Dysuria, No Frequency, No Incontinence, No Hematuria, No Retention, No Other Musculoskeletal: other (Bilateral lower extremity swelling); No neck pain, No shoulder pain, No arm pain, No back pain, No hand pain, No leg pain, No foot pain Skin: No Rash, No Lesions, No Jaundice, No Bruising; Other (Lower extremity redness) Objective Vitals Vital Signs Date Time Temp Pulse Resp B/P (MAP) Pulse Ox O2 Delivery O2 Flow Rate FiO2 09/14/24 13:48 88 18 100 09/14/24 13:42 Room Air 0.0 09/14/24 13:42 21 09/14/24 09:59 104/70 09/14/24 09:00 97.6 97.6 Intake/Output Intake and Output 09/14/24 07:00 Intake Total 1080 ml Balance 1080 ml Intake Oral 1080 ml # Voids 16 Exam GEN: Healthy appearing, well-developed, NAD. HEENT: NC/AT; MMM. CV: RRR, no m/r/g. LUNGS: CTAB, no w/r/c. ABD: Soft, NT/ND, NBS, no masses or organomegaly. EXT: skin Warm, well perfused. no rashes. Pedal edema 1+ up to knees bilaterally NEURO: Ambulating with no limitations. No focal deficits. Medications Current Medications Medications Dose Ordered Sig/Katlyn Route Start Time Stop Time Status Last Admin Dose Admin Carvedilol 3.125 mg Q12HR PO 09/07/24 10:00 09/13/24 22:36 3.125 MG Sodium Chloride 10 ml Q8HR IV 09/07/24 06:00 09/14/24 13:43 10 ML Acetaminophen/ Hydrocodone Bitart 1 tab Q4HP PRN PO 09/07/24 04:45 09/12/24 21:32 1 TAB Ondansetron HCl 4 mg Q4HP PRN IV 09/07/24 04:45 Docusate Sodium 100 mg BIDPRN PRN PO 09/07/24 04:45 Acetaminophen 650 mg Q6HP PRN PO 09/07/24 04:45 Nitroglycerin 0.4 mg Q5MINP PRN SL 09/07/24 05:30 Morphine Sulfate 2 mg Q30M PRN IV 09/07/24 05:30 Aspirin 81 mg DAILY PO 09/08/24 10:00 09/14/24 09:59 81 MG Hydralazine HCl 10 mg Q6HP PRN IV 09/07/24 13:45 09/07/24 14:15 10 MG Albuterol 2.5 mg Q4HPRN PRN NEB 09/08/24 01:00 09/08/24 01:17 2.5 MG Albuterol 2.5 mg Q4HWA NEB 09/08/24 18:00 09/14/24 13:42 2.5 MG Ipratropium [place] 0.5 mg Q4HWA NEB 09/08/24 18:00 09/14/24 13:41 0.5 MG Potassium Bicarbonate 25 meq BID GT 09/11/24 22:00 09/14/24 09:59 25 MEQ Acetazolamide 500 mg DAILY PO 09/15/24 10:00 Furosemide 40 mg BIDD IV 09/14/24 18:00 Laboratory Results Laboratory Tests 09/13/24 05:37 09/14/24 05:30 Chemistry Test 09/14/24 05:30 Albumin 3.9 g/dL (3.2-4.8) Calcium Level 10.1 mg/dL (8.7-10.4) Total Protein 6.2 g/dL (5.7-8.2) LFT Test 09/14/24 05:30 Alanine Aminotransferase (ALT) 33 U/L (7-40) Alkaline Phosphatase 91 U/L (46-116) Aspartate Amino Transferase (AST) 26 U/L (13-40) Total Bilirubin 1.0 mg/dL (0.2-1.0) Labs and/or images reviewed: Labs reviewed by me, Image(s) reviewed by me Assessment/Plan Assessment/Plan 48-year-old male with a known history of COPD, chronic tobacco use disorder, congestive heart failure, hypertension who initially presented to hospital with a bilateral lower extremity swelling found to have 1. Acute on chronic congestive heart failure exacerbation with systolic dysfunction 2. Acute kidney injury suspected secondary to vasomotor nephropathy with underlying CKD 3. Mildly elevated troponin suspect secondary to acute CHF exacerbation 4. Transaminitis suspect secondary to passive congestion from congestive heart failure 5. COPD currently not in exacerbation 6. Chronic tobacco use disorder 7. Cardiomyopathy with the EF of 20% 8. Severe pulmonary hypertension 9. Severe mitral regurgitation Contraction alkalosis 09/12- taking over case from Dr. Aburto.. Patient appears to be here for acute AD HF, COPD not in exacerbation, transaminitis with hyperbilirubinemia. Patient was being diuresed with 80 IV Lasix b.i.d. with prn daily metolazone. Today patient appears to have mild creatinine rise, there is some significant bicarb appears likely contraction alkalosis from diuresis. We will scale back on diuresis and try acetazolamide. Patient is still has significant bilateral pedal edema but no rales. We will also need leg elevation during day. We will add SCDs tonight and nightly 09/13- patient has a improving labs and leg edema. Contraction alkalosis is improving with acetazolamide. We will increase Lasix back as he is still having lower extremity edema. Lungs are clear. Left leg edema is significantly more. We will get DVT study rule out DVT on left leg. Continue diuresis. 09/14 appearing young more euvolemic. DVT ultrasound left leg was negative for any DVT. Today he has 2 runs of AFib/tachycardia. Not concerning. Possible closing to euvolemia. We will repeat BNP again tomorrow. One more day of diuresis. No no further acetazolamide. Decrease Lasix to 40 b.i.d.. Likely discharge tomorrow expecting patient to be euvolemic. -IV Lasix 40 b.i.d. -no further acetazolamide, no further metolazone -no metolazone -beta alhaji, med nebs as needed. Cardiac diet DVT prophylaxis ambulating GI prophylaxis tolerating p.o. Tele Full code Plan discussed with: Patient My Orders Orders - LIBRADO HUNTER MD Procedure Category Date Status Time Acetazolamide Tablet PHA 09/15/24 In Process (Diamox Tablet) 10:00 Furosemide Injection PHA 09/14/24 In Process (Lasix Injection) 18:00 Date of Service: Sep 14, 2024 Billing Provider: LIBRADO HUNTER MD Common Visit Codes: [id number] INP/OBS CARE(HIGH) LIBRADO HUNTER MD Sep 14, 2024 14:40
[2024-09-14] MEDS: FUROSEMIDE 40 MG/4 ML VIAL IV SCH (17:50)
--- NOTE | 2024-09-14 20:22 | DVHPN2 ---
Progress Note - Dictate Date Seen: Sep 14, 2024 Medical Necessity Reason Pt with a Central, PICC or Fol: No Subjective Patient was seen and evaluated in follow up. Patient remains with muscle cramps and pedal edema. 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 Telemetry reviewed. vital signs Vital Sign Date Time Temp Pulse Resp B/P (MAP) Pulse Ox O2 Delivery O2 Flow Rate FiO2 09/14/24 09:59 82 104/70 09/14/24 09:27 18 100 09/14/24 09:21 Room Air 0.0 09/14/24 09:21 21 09/14/24 09:00 97.6 97.6 Total Intake and Output 09/13/24 09/13/24 09/14/24 15:00 23:00 07:00 Intake Total 240 ml 840 ml Balance 240 ml 840 ml medications Current Medications Medications Dose Ordered Sig/Katlyn Route Start Time Stop Time Status Last Admin Dose Admin Carvedilol 3.125 mg Q12HR PO 09/07/24 10:00 09/13/24 22:36 3.125 MG Sodium Chloride 10 ml Q8HR IV 09/07/24 06:00 09/14/24 06:13 10 ML Acetaminophen/ Hydrocodone Bitart 1 tab Q4HP PRN PO 09/07/24 04:45 09/12/24 21:32 1 TAB Ondansetron HCl 4 mg Q4HP PRN IV 09/07/24 04:45 Docusate Sodium 100 mg BIDPRN PRN PO 09/07/24 04:45 Acetaminophen 650 mg Q6HP PRN PO 09/07/24 04:45 Nitroglycerin 0.4 mg Q5MINP PRN SL 09/07/24 05:30 Morphine Sulfate 2 mg Q30M PRN IV 09/07/24 05:30 Aspirin 81 mg DAILY PO 09/08/24 10:00 09/14/24 09:59 81 MG Hydralazine HCl 10 mg Q6HP PRN IV 09/07/24 13:45 09/07/24 14:15 10 MG Albuterol 2.5 mg Q4HPRN PRN NEB 09/08/24 01:00 09/08/24 01:17 2.5 MG Albuterol 2.5 mg Q4HWA NEB 09/08/24 18:00 09/14/24 09:20 2.5 MG Ipratropium [place] 0.5 mg Q4HWA NEB 09/08/24 18:00 09/14/24 09:20 0.5 MG Potassium Bicarbonate 25 meq BID GT 09/11/24 22:00 09/14/24 09:59 25 MEQ Furosemide 40 mg TID IV 09/13/24 14:00 09/14/24 05:33 40 MG Acetazolamide 500 mg DAILY PO 09/15/24 10:00 objective GENERAL: Alert and oriented x 3. No acute distress. EYES: PERRL, EOMI. Anicteric. HENT: Moist mucous membranes. LUNGS: Clear to auscultation bilaterally. CARDIOVASCULAR: Regular rate and rhythm. ABDOMEN: Soft, nontender and nondistended. EXTREMITIES: BLE edema. NEUROLOGIC: No focal neurological deficits. SKIN: Warm, dry. laboratory and microbiology Laboratory Tests 09/14/24 05:30 09/13/24 05:37 Test 09/14/24 05:30 Range/Units Serum Glucose 84 74-106 mg/dL Problem List Acute on chronic HFrEF. Elevated troponin. 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 NSVT. SURY. Transaminitis . History of amphetamine use. Assessment/Plan Continued all current supportive medical care. Morphine and [place] for pain management. Aspirin. Coreg. Diuretics with Lasix. IV Hydralazine for SBP >150. Nitro SL. Additional plan as per the hospital course. Dietary Evaluation Review Comments: encourage pt to follow a cardiac diet, monitor PO intakes to meet 75% of his needs, monitor lab values anc changes of heart conditon and kidney functions. Expected Outcomes/Goals: gradual wt loss. Plan discussed with: Patient KATERINE OJEDA MD Sep 14, 2024 12:12
[2024-09-15] VITALS (13 sets, daily range): BP systolic 106–122; BP diastolic 56–82; PULSE 75–89; RESP 15–18; TEMP 36.4; O2SAT 97–100
[2024-09-15 07:44] LABS: Anion Gap 8 (5-15); Carbon Dioxide 29 mmol/L (20-31); Chloride 103 mmol/L (98-107); Potassium 4.0 mmol/L (3.5-5.1); Sodium 140 mmol/L (136-145)
[2024-09-15 07:45] LABS: Calcium 9.7 mg/dL (8.7-10.4)
[2024-09-15 07:49] LABS: Glucose 86 mg/dL (74-106)
[2024-09-15 07:50] LABS: BUN/Creatinine Ratio 20.8 (10.0-20.0)
[2024-09-15 07:51] LABS: Blood Urea Nitrogen 35 mg/dL (9-23)
[2024-09-15] MEDS ORDERED: acetaZOLAMIDE 250 MG TAB PO SCH (10:00)
[2024-09-15] MEDS ORDERED: FURO40TA4 PO (13:38)
[2024-09-15] MEDS ORDERED: EMPA1TAB PO (13:38)
[2024-09-15] MEDS ORDERED: ASPI-325 PO (13:38)
[2024-09-15] MEDS ORDERED: ATOR-507 PO (13:38)
[2024-09-15] MEDS ORDERED: METO25TA93 PO (13:38)
--- NOTE | 2024-09-15 13:45 | DVHDS2 ---
Discharge Summary Date of Admission Sep 07, 2024 at 05:23 Date of Discharge: Sep 15, 2024 Labs/Diagnostic Data: Laboratory Results Test 09/15/24 06:23 09/14/24 05:30 09/13/24 05:37 09/12/24 06:13 Sodium Level 140 mmol/L (136-145) Potassium Level 4.0 mmol/L (3.5-5.1) Chloride Level 103 mmol/L (98-107) Carbon Dioxide Level 29 mmol/L (20-31) Anion Gap 8 (5-15) Blood Urea Nitrogen 35 mg/dL (9-23) Creatinine 1.68 mg/dL (0.700-1.30) Glomerular Filtration Rate Calc 49 mL/min (>90) BUN/Creatinine Ratio 20.8 (10.0-20.0) Serum Glucose 86 mg/dL (74-106) Calcium Level 9.7 mg/dL (8.7-10.4) Total Bilirubin 1.0 mg/dL (0.2-1.0) Aspartate Amino Transferase (AST) 26 U/L (13-40) Alanine Aminotransferase (ALT) 33 U/L (7-40) Alkaline Phosphatase 91 U/L (46-116) Total Protein 6.2 g/dL (5.7-8.2) Albumin 3.9 g/dL (3.2-4.8) White Blood Count 8.7 10^3/uL (4.4-10.8) Red Blood Count 5.99 10^6/uL (4.5-5.90) Hemoglobin 16.8 g/dL (13.5-17.5) Hematocrit 50.1 % (41.0-53.0) Mean Corpuscular Volume 83.5 fL (80.0-100.0) Mean Corpuscular Hemoglobin 28.0 pg (28.0-32.0) Mean Corpuscular Hemoglobin Concent 33.5 g/dL (32.0-36.0) Red Cell Distribution Width 15.7 % (11.8-14.3) Platelet Count 312 10^3/uL (140-450) Mean Platelet Volume 8.1 fL (6.9-10.8) Neutrophils (%) (Auto) 62.8 % (37.0-80.0) Lymphocytes (%) (Auto) 19.9 % (10.0-50.0) Monocytes (%) (Auto) 14.2 % (0.0-12.0) Eosinophils (%) (Auto) 2.1 % (0.0-7.0) Basophils (%) (Auto) 1.0 % (0.0-2.0) Neutrophils # (Auto) 5.5 10 ^3/uL (1.6-8.6) Lymphocytes # (Auto) 1.7 10 ^3/uL (0.4-5.4) Monocytes # (Auto) 1.2 10 ^3/uL (0-1.3) Eosinophils # (Auto) 0.2 10 ^3/uL (0-0.8) Basophils # (Auto) 0.1 10 ^3/uL (0-0.2) Nucleated Red Blood Cells 0.1 % Phosphorus Level 4.7 mg/dL (2.4-5.1) Magnesium Level 2.3 mg/dL (1.6-2.6) B-Type Natriuretic Peptide 619.50 pg/mL (0-100) Test 09/11/24 03:20 09/06/24 23:43 09/06/24 22:30 09/06/24 20:46 Urine Opiates Screen Neg (NEGATIVE) Urine Fentanyl Screen Neg (NEGATIVE) Urine Barbiturates Screen Neg (NEGATIVE) Urine Phencyclidine Screen Neg (NEGATIVE) Urine Amphetamines Screen Neg (NEGATIVE) Urine Benzodiazepines Screen Neg (NEGATIVE) Urine Cocaine Screen Neg (NEGATIVE) Urine Cannabinoids Screen Neg (NEGATIVE) Troponin I High Sensitivity 59 ng/L (</=54) Lactic Acid Level 1.4 mmol/L (0.4-2.0) Lipase 34 U/L (12-53) Other Laboratory Tests 09/15/24 06:23 09/13/24 05:37 Brief Hx & Hospital Course: HPI: The patient is a 48-year-old male with past medical history of COPD, CHF, and hypertension who presented to [facility] ED with complaint of bilateral lower extremity swelling. Patient reports that he has been experiencing bilateral leg swelling, redness, worse on left, for the past 3 days. Reports that he has been compliant with all of his medication. Patient was seen and evaluated in the ED, laboratory data shows WBC 9.5, platelets 242, sodium 142, potassium 4.3, BUN 19, creatinine 1.40, glucose 92, calcium 8.8, lipase 34, AST 35, ALT 52, troponin 59, BNP 1823.04, lactic acid 2.2 trending down to 1.4, blood pressure 149/89, heart rate 57, temperature 97.6 F, O2 saturation 99% on oxygen. Patient was started on IV Lasix, Summary: 09/12- Patient to be here for acute AD HF, COPD not in exacerbation, transaminitis with hyperbilirubinemia. Patient was being diuresed with 80 IV Lasix b.i.d. with prn daily metolazone. Today patient appears to have mild creatinine rise, there is some significant bicarb appears likely contraction alkalosis from diuresis. We will scale back on diuresis and try acetazolamide. Patient is still has significant bilateral pedal edema but no rales. We will also need leg elevation during day. We will add SCDs tonight and nightly 09/13- patient has a improving labs and leg edema. Contraction alkalosis is improving with acetazolamide. We will increase Lasix back as he is still having lower extremity edema. Lungs are clear. Left leg edema is significantly more. We will get DVT study rule out DVT on left leg. Continue diuresis. 09/14 appearing young more euvolemic. DVT ultrasound left leg was negative for any DVT. Today he has 2 runs of AFib/tachycardia. Not concerning. Possible closing to euvolemia. We will repeat BNP again tomorrow. One more day of diuresis. No no further acetazolamide. Decrease Lasix to 40 b.i.d.. Likely discharge tomorrow expecting patient to be euvolemic. 09/15- patient is euvolemic today. Ready for discharge. Unable to optimize GDM T due to soft blood pressure. Patient will have to follow up outpatient with Cardiology to continue incomplete workup and had optimization of GDM T. patient is stable for discharge as per plan below.. Diagnosis: 1. Acute on chronic congestive heart failure exacerbation with systolic dysfunction 2. Acute kidney injury suspected secondary to vasomotor nephropathy with underlying CKD 3. Mildly elevated troponin suspect secondary to acute CHF exacerbation 4. Transaminitis suspect secondary to passive congestion from congestive heart failure 5. COPD currently not in exacerbation 6. Chronic tobacco use disorder 7. Cardiomyopathy with the EF of 20% 8. Severe pulmonary hypertension 9. Severe mitral regurgitation 10. Contraction alkalosis resolved Discharge plan: - take the following meds daily: Aspirin 81 mg, Lipitor 40 mg, Jardiance 10 mg, furosemide 40 mg, metoprolol XL 25 mg, - take low-salt diet maximum 2 g daily, fluid intake < 1.5 L per day - follow up with Cardiology. Need to maximize GDM T and possible outpatient angiogram - follow up with PCP to review discharge and med rec. Condition at Discharge: Guarded Final Diagnosis/Problems List Diagnosis: 1. Acute on chronic congestive heart failure exacerbation with systolic dysfunction 2. Acute kidney injury suspected secondary to vasomotor nephropathy with underlying CKD 3. Mildly elevated troponin suspect secondary to acute CHF exacerbation 4. Transaminitis suspect secondary to passive congestion from congestive heart failure 5. COPD currently not in exacerbation 6. Chronic tobacco use disorder 7. Cardiomyopathy with the EF of 20% 8. Severe pulmonary hypertension 9. Severe mitral regurgitation 10. Contraction alkalosis resolved Discharge Disposition: Home Discharge Instruct/Medications Diet: Cardiac 2g Na,low cholest Activity: No Restrictions, As Tolerated Follow Up/Referral: See below Medications: See below Scheduled Aspirin (Aspirin Low Dose), 81 MG PO DAILY Atorvastatin Calcium (Lipitor), 1 TAB PO DAILY Empagliflozin (Jardiance), 10 MG PO DAILY Furosemide (Furosemide), 1 TAB PO DAILY Metoprolol Succinate (Metoprolol Succinate Er), 1 TAB PO DAILY Discharge Statement: "Patient was advised to return to the ER or call 911 if any headaches, dizziness, shortness of breath, chest pain, abdominal pain, bleeding, fevers, or worsening of medical condition. Patient was counseled about treatment plan, medications, possible side effects, patientverbalized understanding. All questions were answered to the best of my ability. This discharge took greater then 30 minutes in planning, reviewing documentation, counseling the patient, and discussing with other team members." Date of Service: Sep 15, 2024 Billing Provider: LIBRADO HUNTER MD Common Visit Codes: 34752-LRC/OBS DISCH DAY >30min LIBRADO HUNTER MD Sep 15, 2024 13:45
--- NOTE | 2024-09-15 19:41 | DVHPN2 ---
Progress Note - Dictate Date Seen: Sep 15, 2024 Medical Necessity Reason Pt with a Central, PICC or Fol: No Subjective Patient was seen and evaluated in follow up. Patient has no new complaints at this time. Patient denies any cardiac symptoms. Patient is cardiac stable for discharge. Telemetry reviewed. vital signs Vital Sign Date Time Temp Pulse Resp B/P (MAP) Pulse Ox O2 Delivery O2 Flow Rate FiO2 09/15/24 10:52 75 18 100 09/15/24 10:44 Room Air* 0 21 09/15/24 09:55 113/65 09/15/24 09:31 97.6 97.6 Total Intake and Output 09/14/24 09/14/24 09/15/24 15:00 23:00 07:00 Intake Total 480 ml 575 ml Balance 480 ml 575 ml medications Current Medications Medications Dose Ordered Sig/Katlyn Route Start Time Stop Time Status Last Admin Dose Admin Carvedilol 3.125 mg Q12HR PO 09/07/24 10:00 09/15/24 08:55 3.125 MG Sodium Chloride 10 ml Q8HR IV 09/07/24 06:00 09/15/24 11:19 10 ML Acetaminophen/ Hydrocodone Bitart 1 tab Q4HP PRN PO 09/07/24 04:45 09/14/24 21:44 1 TAB Ondansetron HCl 4 mg Q4HP PRN IV 09/07/24 04:45 Docusate Sodium 100 mg BIDPRN PRN PO 09/07/24 04:45 Acetaminophen 650 mg Q6HP PRN PO 09/07/24 04:45 Nitroglycerin 0.4 mg Q5MINP PRN SL 09/07/24 05:30 Morphine Sulfate 2 mg Q30M PRN IV 09/07/24 05:30 Aspirin 81 mg DAILY PO 09/08/24 10:00 09/15/24 08:54 81 MG Hydralazine HCl 10 mg Q6HP PRN IV 09/07/24 13:45 09/07/24 14:15 10 MG Albuterol 2.5 mg Q4HPRN PRN NEB 09/08/24 01:00 09/08/24 01:17 2.5 MG Albuterol 2.5 mg Q4HWA NEB 09/08/24 18:00 09/15/24 10:44 2.5 MG Ipratropium [place] 0.5 mg Q4HWA NEB 09/08/24 18:00 09/15/24 10:44 0.5 MG Potassium Bicarbonate 25 meq BID GT 09/11/24 22:00 09/14/24 21:39 25 MEQ Furosemide 40 mg BIDD IV 09/14/24 18:00 09/15/24 06:24 40 MG objective GENERAL: Alert and oriented x 3. No acute distress. EYES: PERRL, EOMI. Anicteric. HENT: Moist mucous membranes. LUNGS: Clear to auscultation bilaterally. CARDIOVASCULAR: Regular rate and rhythm. ABDOMEN: Soft, nontender and nondistended. EXTREMITIES: BLE edema. NEUROLOGIC: No focal neurological deficits. SKIN: Warm, dry. laboratory and microbiology Laboratory Tests 09/15/24 06:23 09/13/24 05:37 Test 09/15/24 06:23 Range/Units Serum Glucose 86 74-106 mg/dL Problem List Acute on chronic HFrEF. Elevated troponin. 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 NSVT. SURY. Transaminitis . History of amphetamine use. Assessment/Plan Continued all current supportive medical care. Morphine for pain management. Aspirin. Coreg. Diuretics with Lasix. Nitro SL. Additional plan as per the hospital course. Dietary Evaluation Review Comments: encourage pt to follow a cardiac diet, monitor PO intakes to meet 75% of his needs, monitor lab values anc changes of heart conditon and kidney functions. Expected Outcomes/Goals: gradual wt loss. Plan discussed with: Patient KATERINE OJEDA MD Sep 15, 2024 12:35
== END 2024-09-15 15:30 | disposition home or self-care (01) | DRG 194 ==
LOC: EDBD 19:52 → ER 19:52 → OVERFLOW 09-07 05:23 → TELE-CENTR 09-07 23:51
PROVIDERS: ADMIT Student in an Organized Health Care Education/Training Program; ATTEND Student in an Organized Health Care Education/Training Program
DX: I13.0 Hypertensive heart and chronic kidney disease with heart failure and stage 1 through stage 4 chronic kidney disease, or unspecified chronic kidney disease (principal); N17.0 Acute kidney failure with tubular necrosis; E87.4 Mixed disorder of acid-base balance; I50.23 Acute on chronic systolic (congestive) heart failure; I27.20 Pulmonary hypertension, unspecified; I47.20 Ventricular tachycardia, unspecified; I42.9 Cardiomyopathy, unspecified; I34.0 Nonrheumatic mitral (valve) insufficiency; J44.9 Chronic obstructive pulmonary disease, unspecified; N18.9 Chronic kidney disease, unspecified; R74.01 Elevation of levels of liver transaminase levels; I48.91 Unspecified atrial fibrillation; F17.200 Nicotine dependence, unspecified, uncomplicated; E80.6 Other disorders of bilirubin metabolism; Z91.148 Patient's other noncompliance with medication regimen for other reason; Z82.49 Family history of ischemic heart disease and other diseases of the circulatory system; Z80.3 Family history of malignant neoplasm of breast; Z79.899 Other long term (current) drug therapy; Z88.8 Allergy status to other drugs, medicaments and biological substances
CPT/HCPCS: 36415; 71045; 80048; 80053; 80307; 83605; 83690; 83735; 83880; 84100; 84484; 85025; 93005; 93306; 93971; 94640; 96374; G0378

== ENCOUNTER 2024-10-10 22:18 | Inpatient (IN) | payer MEDICAID ==
[~2024-10-10] VITALS: Ht 188 cm; Wt 111.1 kg
[~2024-10-10 22:18] MED LIST: ASPI-325 PO; ATOR-507 PO; EMPA1TAB PO; FURO40TA4 PO; METO25TA93 PO
--- NOTE | 2024-10-10 22:28 | ECG ---
[facility] Test Date: 2024-10-10 Test Time: 22:20:06 Pat Name: SARAH OLIVERA Department: ED Room: [facility] [place] Gender: M Gynecologist: BÁRBARA : 1975 Requested By: EMERGENCY EMERGENCY Order Number: [id number] Reading MD: Peter Leong Measurements Intervals [place] Rate: 104 P: 13 MI: 162 QRS: -46 QRSD: 94 T: 90 QT: 345 QTc: 454 Interpretive Statements Sinus tachycardia Ventricular premature complex Probable left atrial enlargement Inferior infarct, old Anterior infarct, old Electronically Signed On 10-11-2024 11:20:57 PDT by Peter Leong Please click the below link to view image of tracing.
--- NOTE | 2024-10-10 22:34 | ED.PDOC ---
SOB-HPI HPI Comments 48 year old male presents to the ED via EMS with a chief complaint of shortness of breath onset 2 weeks. Patient states he has been experiencing shortness of breath for the past 2 weeks, as well as bilateral leg swelling. Patient was discharged from [facility] on 09/15/24, was admitted for bilateral leg swelling, states swelling as worsen since being discharged. This morning, he noticed abdominal distension,shortness of breath worsened, tonight he was trying to sleep, had a "drowning" sensation, called 911. He states he is complaint with medication. PMHx COPD, CHF, HTN. Denies chest pain,cough, sore throat, fever, chills, nausea, vomiting, diarrhea, headache. No other associated symptoms, modifiers, recent injuries or sick contacts present at this time. Chief Complaint: Shortness of Breath Time Seen by MD: 22:30 Reviewed notes: Medications, Allergies Information Source: Patient, Emergency Med Personnel Mode of Arrival: EMS Severity: Moderate Timing: Weeks Duration: Since onset Context: At Rest PE Risk Factors: None History of: COPD, CHF Prehospital treatment: None Modifying Factors: Nothing Associated Signs and Symptoms: Leg Swelling Past Medical History PAST MEDICAL HISTORY: CHF, COPD, HTN Surgical History: Denies all surgeries Family History Family History: Reviewed,noncontributory to illness Social History Smoker: Non-Smoker Alcohol: Denies ETOH Use Drugs: Denies Drug Use Lives In: Home Constitutional: denies: chills, diaphoresis, fatigue, fever, malaise, sweats, weakness, others EENTM: denies: blurred vision, double vision, ear bleeding, ear discharge, ear drainage, ear pain, ear ringing, eye pain, eye redness, hearing loss, mouth pain, mouth swelling, nasal discharge, nose bleeding, nose congestion, nose pain, photophobia, tearing, throat pain, throat swelling, voice changes, others Respiratory: reports: shortness of breath; denies: cough, hemoptysis, orthopnea, SOB at rest, SOB with excertion, stridor, wheezing, others Cardiovascular: denies: chest pain, dizzy spells, diaphoresis, Dyspnea on exertion, edema, irregular heart beat, left arm pain, lightheadedness, palpitations, PND, syncope, others Gastrointestinal: denies: abdomen distended, abdominal pain, blood streaked bowels, constipated, diarrhea, dysphagia, difficulty swallowing, hematemesis, melena, nausea, poor appetite, poor fluid intake, rectal bleeding, rectal pain, vomiting, others Genitourinary: denies: burning, dysuria, flank pain, frequency, hematuria, incontinence, penile discharge, penile sore, pain, testicle pain, testicle swelling, urgency, others Neurological: denies: dizziness, fainting, headache, left sided numbness, left sided weakness, numbness, paresthesia, pre-existing deficit, right sided numbness, right sided weakness, seizure, speech problems, tingling, tremors, weakness, others Musculoskeletal: reports: others (bilateral leg edema); denies: back pain, gout, joint pain, joint swelling, muscle pain, muscle stiffness, neck pain Integumetry: denies: bruises, change in color, change in hair/nails, dryness, laceration, lesions, lumps, rash, wounds, others Allergic/Immunocompromised: denies: Difficulty Healing, Frequent Infections, Hives, Itching, others Hematologic/Lymphatic: denies: anemia, blood clots, easy bleeding, easy bruising, swollen glands, others Endocrine: denies: excessive hunger, excessive sweating, excessive thirst, excessive urination, flushing, intolerance to cold, intolerance to heat, unexplained weight gain, unexplained weight loss, others Psychiatric: denies: anxiety, bipolar disorder, depression, hopeless, panic disorder, schizophrenia, sleepless, suicidal, others All Other Systems: Reviewed and Negative Physical Exam General Appearance: Normal HEENT: Normal ENT Inspection, Pharynx Normal, TMs Normal Neck: Full Range of Motion, Non-Tender, Normal, Normal Inspection Respiratory: Chest Non-Tender, Lungs Clear, No Accessory Muscle Use, No Respiratory Distress, Normal Breath Sounds Cardiovascular: No Edema, No JVD, No Murmur, No Gallop, Normal Peripheral Pulses, Regular Rate/Rhythm Breast Exam: Deferred Gastrointestinal: No Organomegaly, Non Tender, No Pulsatile Mass, Normal Bowel Sounds, Soft Genitalia: Deferred Pelvic: Deferred Rectal: Deferred Extremities: No calf tenderness, Normal capillary refill, Normal inspection, Normal range of motion, Non-tender, No pedal edema Musculoskeletal : Apperance: Normal Neurologic: Alert, registration scheduling specialist II-XII nml as Tested, No Motor Deficits, Normal Affect, Normal Mood, No Sensory Deficits Cerebellar Function: Normal Reflexes: Normal Skin: Dry, Normal Color, Warm Lymphatic: No Adenopathy Was a procedure done? Was a procedure done?: No Differential Dx Differential Diagnosis: Asthma, Bronchitis, CHF, COPD, Pneumonia, Pneumothorax, Pulmonary Embolism, Pharyngitis, URI, Other X-Ray, Labs, Meds, VS Vital Signs Date Time Temp Pulse Resp B/P (MAP) Pulse Ox O2 Delivery O2 Flow Rate FiO2 10/10/24 23:30 98 18 135/91 (106) 95 10/10/24 22:57 151/100 10/10/24 22:40 103 20 96 Room Air* 0 21 10/10/24 22:40 98.1 103 20 151/100 (117) 95 98.1 10/10/24 22:21 98.7 106 18 136/81 100 98.7 10/10/24 22:20 104 Lab Test 10/11/24 00:17 10/10/24 23:40 10/10/24 22:47 Range/Units Troponin I High Sensitivity Pending 43 </=54 ng/L Urine Color Light-yellow Yellow Urine Clarity Clear Clear Urine pH 5.5 5.0-9.0 Urine Specific [place] 1.013 1.001-1.035 Urine Protein 1+ H Negative Urine Ketones Negative Negative Urine Blood Negative Negative /uL Urine Nitrite Negative Negative Urine Bilirubin Negative Negative Urine Urobilinogen Normal Negative mg/dL Urine Leukocyte Esterase Negative Negative /uL Urine RBC None seen 0 - 3 /hpf Urine Microscopic WBC 1 0-3 /HPF Urine Squamous Epithelial Cells None seen <5 /hpf Urine Bacteria None seen None Seen /hpf Urine Mucus Few None Seen Urine Sperm Present None Seen /hpf Urine Glucose Normal Normal mg/dL White Blood Count 9.9 4.4-10.8 10^3/uL Red Blood Count 5.65 4.5-5.90 10^6/uL Hemoglobin 15.5 13.5-17.5 g/dL Hematocrit 46.6 41.0-53.0 % Mean Corpuscular Volume 82.4 80.0-100.0 fL Mean Corpuscular Hemoglobin 27.4 L 28.0-32.0 pg Mean Corpuscular Hemoglobin Concent 33.2 32.0-36.0 g/dL Red Cell Distribution Width 17.0 H 11.8-14.3 % Platelet Count 295 140-450 10^3/uL Mean Platelet Volume 7.3 6.9-10.8 fL Neutrophils (%) (Auto) 68.0 37.0-80.0 % Lymphocytes (%) (Auto) 17.9 10.0-50.0 % Monocytes (%) (Auto) 11.2 0.0-12.0 % Eosinophils (%) (Auto) 2.0 0.0-7.0 % Basophils (%) (Auto) 0.9 0.0-2.0 % Neutrophils # (Auto) 6.7 1.6-8.6 10 ^3/uL Lymphocytes # (Auto) 1.8 0.4-5.4 10 ^3/uL Monocytes # (Auto) 1.1 0-1.3 10 ^3/uL Eosinophils # (Auto) 0.2 0-0.8 10 ^3/uL Basophils # (Auto) 0.1 0-0.2 10 ^3/uL Nucleated Red Blood Cells 0.1 % Sodium Level 139 136-145 mmol/L Potassium Level 3.8 3.5-5.1 mmol/L Chloride Level 109 H 98-107 mmol/L Carbon Dioxide Level 21 20-31 mmol/L Anion Gap 9 5-15 Blood Urea Nitrogen 17 9-23 mg/dL Creatinine 1.10 0.700-1.30 mg/dL Glomerular Filtration Rate Calc 82 >90 mL/min BUN/Creatinine Ratio 15.5 10.0-20.0 Serum Glucose 101 74-106 mg/dL Calcium Level 8.6 L 8.7-10.4 mg/dL Magnesium Level 1.9 1.6-2.6 mg/dL Total Bilirubin 1.5 H 0.2-1.0 mg/dL Aspartate Amino Transferase (AST) 20 13-40 U/L Alanine Aminotransferase (ALT) 20 7-40 U/L Alkaline Phosphatase 90 46-116 U/L B-Type Natriuretic Peptide 2176.07 0-100 pg/mL Total Protein 5.8 5.7-8.2 g/dL Albumin 3.8 3.2-4.8 g/dL Current Medications Medications (Trade) Dose Ordered Sig/Katlyn Route Start Time Stop Time Status Last Admin Furosemide (Lasix Injection) 20 mg ONCE ONCE IV 10/10/24 22:45 10/10/24 22:46 DC 10/10/24 22:57 [facility] [id number] [facility] [address] Ph: [phone] DIAGNOSTIC IMAGING Diagnostic Imaging Report : [id number] Signed PATIENT: MONTY OLIVERA ACCT: [id number] UNIT: [id number] : 1975 LOC: ER ROOM / BED: / AGE / SEX: 48 / M ADM STATUS: REG ER SERVICE 31 ORDERING PHYSICIAN: RACHID LOUIS MD PROCEDURE(s): CXRP - CHEST PORTABLE REASON: SOB ORDER NUMBER(s): [id number], ACCESSION NUMBER(s): [id number] CHEST RADIOGRAPH Indication: SOB Technique: Single frontal view of the chest was obtained COMPARISON: XY CHEST XRAY 1 VIEW on DOS: 09/07/24 FINDINGS: Lines and Tubes: None Lungs: Diffuse increased prominence of the pulmonary vasculature. New right basilar pulmonary airspace disease and pleural effusion. No pneumothorax. Cardiomediastinal contours: Cardiomegaly. Bones: Unremarkable IMPRESSION: 1. New right basilar pulmonary airspace disease and pleural effusion. 2. Cardiomegaly and mild diffuse increased prominence of the pulmonary vasculature. ATED BY: MONTY VANG MD DICTATED DATE/TIME: 10/10/242308 SIGNED BY: MONTY VANG MD SIGNED DATE/TIME: 10/10/242308 CC: Time of 1ST Reevaluation: 23:00 Reevaluation 1ST: Unchanged Patient Education/Counseling: Diagnosis, Treatment, Prognosis Family Education/Counseling: No Family Present Additional Information The following tests were ordered, and results were reviewed by me: TROP-x3, EKG, UA, CBC, CMP, XY CHEST, MAGNESIUM Additional Information was gathered from interviewing the following independent historians: ems I reviewed and agreed with the following test results read by other providers: XY CHEST I discussed treatment and results with medical personnel and: patient Comprehensive systems review obtained and negative except for what is stated in the HPI. SEPSIS Sepsis Screen Date sepsis recognized/suspect: Oct 10, 2024 Time Sepsis recognized/suspect: 2223 Recent Procedure: No On Antibiotic Therapy: No Respiratory Rate >20: No Heart Rate >90: Yes Temp<36 C (96.8 F) or >38.3 C: No SBP <90 or MAP <65 mmHG: No New Acute Mental Status Change: No Is the patient on CPAP, BIPAP,: No Physician Orders Troponin-I Hs (10/11/24 00:00) Chest Portable (10/10/24 22:32) [place] [employer] Operator (10/10/24 22:32) Troponin-I Hs (10/11/24 01:32) Vital Signs Date Time Temp Pulse Resp B/P (MAP) Pulse Ox O2 Delivery O2 Flow Rate FiO2 10/10/24 23:30 98 18 135/91 (106) 95 10/10/24 22:57 151/100 10/10/24 22:40 103 20 96 Room Air* 0 21 10/10/24 22:40 98.1 103 20 151/100 (117) 95 98.1 10/10/24 22:21 98.7 106 18 136/81 100 98.7 10/10/24 22:20 104 Laboratory Tests Test 10/10/24 22:47 White Blood Count 9.9 10^3/uL (4.4-10.8) Medications Medications Dose Ordered Sig/Katlyn Route Start Time Stop Time Status Last Admin Dose Admin Furosemide 20 mg ONCE ONCE IV 10/10/24 22:45 10/10/24 22:46 DC 10/10/24 22:57 Departure 1 Departure Time of Disposition: 00:42 Impression: Primary Impression: Acute exacerbation of CHF (congestive heart failure) Additional Impression: Intermediate coronary syndrome Disposition: ADMITTED INPATIENT Admit to: [facility] Condition: Guarded Discharged With: Self Comments Shortness of Breath with Congestive Heart Failure Exacerbation Chief Complaint: Shortness of breath for two weeks History of Present Illness: Patient is a 48-year-old male presenting with progressive shortness of breath over the past two weeks. He reports associated bilateral ankle swelling and notes that his symptoms worsen when lying down at night, suggesting orthopnea. The patient has a documented history of COPD and congestive heart failure, which likely contribute to his current presentation. His clinical picture is consistent with a CHF exacerbation, with symptoms including dyspnea, peripheral edema, and orthopnea. Review of Systems: Cardiovascular: Positive for shortness of breath, orthopnea, and peripheral edema. Respiratory: Positive for dyspnea. Constitutional: Mild distress noted. All other systems: Not specifically addressed in the steak sauce maker. Medications: Current home medications not specified in steak sauce maker. Allergies: No known allergies documented in steak sauce maker. Past Medical History: Congestive Heart Failure Chronic Obstructive Pulmonary Disease (COPD) History of substance use Past Surgical History: No past surgical history documented in steak sauce maker. Social History: Tobacco: Current smoker, details of pack-years not specified. Substance Use: History of substance use problems, specifics not detailed. Physical Exam: General: Patient in mild distress. Respiratory: Diminished breath sounds at bilateral bases. Extremities: 2+ bilateral lower extremity edema. Lab Results: CBC: Unremarkable Chemistry Panel: Slightly elevated total bilirubin at 1.5 mg/dL, otherwise unremarkable BNP: Significantly elevated at 2,176 pg/mL Troponin: Normal at 43 ng/L Imaging and Other Relevant Results: Chest X-ray: Right basilar pleural effusion, cardiomegaly, and interstitial vascular prominence Medical Decision Making: Summary Statement: 48-year-old male with history of CHF and COPD presenting with two weeks of progressive dyspnea, orthopnea, and bilateral lower extremity edema. Findings consistent with CHF exacerbation. Problem List: 1. Acute on chronic heart failure exacerbation 2. COPD 3. Pleural effusion 4. Tobacco use 5. History of substance use Differential Diagnosis: 1. CHF exacerbation 2. COPD exacerbation 3. Pneumonia 4. Acute coronary syndrome 5. Pulmonary embolism 6. Anemia ED Course: Patient evaluated for acute coronary syndrome and congestive heart failure. Administered Lasix for diuresis and aspirin for cardiac protection. Elevated BNP (2,176) with normal troponin (43) and chest x-ray findings support diagnosis of CHF exacerbation. Assessment and Plan: 1. Congestive Heart Failure Exacerbation: - Findings consistent with CHF exacerbation including dyspnea, orthopnea, peripheral edema, elevated BNP, and radiographic evidence of pleural effusion and cardiomegaly. - Initiated IV Lasix for diuresis to reduce fluid overload. - Will monitor response to diuretic therapy with serial exams and daily weights. - Consider echocardiogram to assess current cardiac function. - Optimize heart failure medications upon improvement. 2. Chronic Obstructive Pulmonary Disease: - Underlying COPD may be contributing to respiratory symptoms. - Continue home COPD medications if applicable. - Smoking cessation counseling provided. 3. Pleural Effusion: - Right basilar pleural effusion noted on chest x-ray, likely secondary to CHF. - Should improve with diuresis; will reassess with follow-up imaging if symptoms persist. 4. Tobacco Use: - Strong recommendation for smoking cessation. - Offered nicotine replacement therapy and referral to smoking cessation program. 5. History of Substance Use: - Will assess for current substance use and provide appropriate resources if needed. Disposition: Admission to telemetry unit for management of CHF exacerbation and close monitoring. Additional Notes: Patient presented with symptoms consistent with CHF exacerbation requiring acute intervention. Billing Information: ICD-10: I50.9 - Heart failure, unspecified ICD-10: J44.9 - Chronic obstructive pulmonary disease, unspecified ICD-10: J91.8 - Pleural effusion in other conditions classified elsewhere ICD-10: R60.0 - Localized edema Critical Care Note Critical Care Time?: Yes (35 min-critical care time only) Critical care comment: Total critical care time: Approximately 36 minutes Due to a high probability of clinically significant, life threatening deterioration, the patient required my highest level of preparedness to intervene emergently and I personally spent this critical care time directly and personally managing the patient. This critical care time included obtaining a history; examining the patient; pulse oximetry; ordering and review of studies; arranging urgent treatment with development of a management plan; evaluation of patient's response to treatment; frequent reassessment; and, discussions with other providers. This critical care time was performed to assess and manage the high probability of imminent, life-threatening deterioration that could result in multi-organ failure. It was exclusive of separately billable procedures and treating other patients. Stability Stability form required: No Heart Score Heart Score: Heart Score Response (Comments) Value History Moderate Suspicious 1 EKG Repolarization Disturb 1 Age 45-64 1 Risk Factors >3 or Hx ASHD 2 Troponin Normal limit 0 Total 5 I personally scribed for RACHID LOUIS MD ([email or web address]) on 10/10/24 at 22:34. Electronically submitted by Sri Villegas ([email or web address]). I personally scribed for RACHID LOUIS MD ([email or web address]) on 10/10/24 at 22:35. Electronically submitted by Sri Villegas ([email or web address]). I personally scribed for RACHID LOUIS MD ([email or web address]) on 10/10/24 at 23:25. Electronically submitted by Sri Villegas ([email or web address]). RACHID LOUIS MD Oct 10, 2024 22:34
[2024-10-10 22:40] VITALS: PULSE 103; RESP 20; O2SAT 96
[2024-10-10] MEDS: FUROSEMIDE 20 MG/2 ML VIAL IV ONE (22:57)
[2024-10-10 23:01] LABS: Hematocrit 46.6 % (41.0-53.0); Hemoglobin 15.5 g/dL (13.5-17.5); Mean Corpuscular Hemoglobin 27.4 pg (28.0-32.0); Mean Corpuscular Volume 82.4 fL (80.0-100.0); Nucleated Red Blood Cells % 0.1 %
--- NOTE | 2024-10-10 23:11 | DVH ---
CHEST RADIOGRAPH Indication: SOB Technique: Single frontal view of the chest was obtained COMPARISON: XY CHEST XRAY 1 VIEW on DOS: 09/07/24 FINDINGS: Lines and Tubes: None Lungs: Diffuse increased prominence of the pulmonary vasculature. New right basilar pulmonary airspa ce disease and pleural effusion. No pneumothorax. Cardiomediastinal contours: Cardiomegaly. Bones: Unremarkable IMPRESSION: 1. New right basilar pulmonary airspace disease and pleural effusion. 2. Cardiomegaly and mild diffuse increased prominence of the pulmonary vasculature.
[2024-10-10 23:22] LABS: Alanine Aminotransferase 20 U/L (7-40); Albumin 3.8 g/dL (3.2-4.8); Alkaline Phosphatase 90 U/L (46-116); Anion Gap 9 (5-15); BUN/Creatinine Ratio 15.5 (10.0-20.0); Blood Urea Nitrogen 17 mg/dL (9-23); Carbon Dioxide 21 mmol/L (20-31); Glucose 101 mg/dL (74-106); Magnesium 1.9 mg/dL (1.6-2.6); Potassium 3.8 mmol/L (3.5-5.1); Sodium 139 mmol/L (136-145); Total Protein 5.8 g/dL (5.7-8.2)
[2024-10-10 23:26] LABS: Bilirubin, Total 1.5 mg/dL (0.2-1.0); Calcium 8.6 mg/dL (8.7-10.4); Chloride 109 mmol/L (98-107)
[2024-10-10 23:59] LABS: Urine Protein, UAD 1+ (Negative)
[2024-10-11] VITALS (12 sets, daily range): BP systolic 126–144; BP diastolic 93–120; PULSE 94–104; RESP 16–20; TEMP 98–98.4; O2SAT 92–100
[2024-10-11] MEDS ORDERED: MORPHINE SULFATE INJ 2 MG/ml SYRG IV PRN (01:30)
[2024-10-11] MEDS ORDERED: NITROGLYCERIN 0.4 MG SL TAB SL PRN (01:30)
[2024-10-11] MEDS: AZITHROMYCIN 500MG/ 250ML 250 ML IV ONE (01:30)
[2024-10-11] MEDS: FUROSEMIDE 20 MG/2 ML VIAL IV ONE (01:43)
[2024-10-11] MEDS: cefTRIAXone 1GM/50ML D5W 50 ML IV ONE (01:44)
--- NOTE | 2024-10-11 02:10 | DVHHPRES ---
History of Present Illness Resident Creating Document: PATSOFY RESIDENT History of Present Illness 48-year-old male with past medical history of congestive heart failure, COPD not on home oxygen, hypertension comes to the ER with shortness of breaths since last 5 days, after he was discharged from the hospital. His shortness of breath worsens on lying down, improved on sitting up. Shortness of breath starts even when resting, he becomes short of breath while doing his activities of daily living. He denies any chest pain, fever, nausea or vomiting. The patient reports having right-sided abdominal discomfort and a hard mass developing over a period of 2-3 days. The patient denies any constipation. He noticed leg swelling for the same duration. Past medical history: Hypertension, COPD Past surgical history: None Family history: Mother had breast cancer on chemotherapy, in 2014. Father had history of kidney disease. Smoking history: 3 cigarettes per day actively smoking, since last 30 years Alcohol: Never used Drug abuse: Active marijuana user since 16 years of age, methamphetamine used since last 30 years, not using methamphetamine for last 3 weeks. Allergies: Lisinopril PCP: Dr. Villar, sweep press operator: Dr. Ruiz Code status: Full code Review of Systems Respiratory: Shortness of breath Cardiovascular: Edema Gastrointestinal: Other Allergies: Coded Allergies: Lisinopril (Verified Allergy, Unknown, 09/06/24) Medications Current Medications Medications Dose Ordered Sig/Katlyn Route Start Time Stop Time Status Last Admin Dose Admin Nitroglycerin 0.4 mg Q5MINP PRN SL 10/11/24 01:30 Morphine Sulfate 2 mg Q30M PRN IV 10/11/24 01:30 Exam Vital Signs Vital Signs Date Time Temp Pulse Resp B/P (MAP) Pulse Ox O2 Delivery O2 Flow Rate FiO2 10/11/24 01:43 144/120 10/11/24 01:30 105 14 96 10/10/24 22:40 Room Air* 0 21 10/10/24 22:40 98.1 98.1 Exam Pt is lying on bed General Appearance: Alert, Oriented X3, Cooperative, Mild distress HEENT: Atraumatic, Mucous membranes moist/pink Respiratory: Clear to auscultation, Normal air movement, No added sounds Cardiovascular: JVD present, Regular rate, Normal S1, Normal S2, No murmurs Abdominal/ : Active bowel sounds, Soft, no distention, Right upper quadrant and epigastric tenderness, Hard mass on palpation in the RUQ possibly liver Extremities: 1+ edema, Normal pulses, No tenderness/swelling Skin: No Significant rash Neuro: Normal speech, sensorimotor deficits none Psych/Mental Status: Mental status NL, Mood NL Nurse was there as cath lab technologist during examination' Labs/Xrays Labs Test 10/11/24 00:51 10/10/24 23:40 10/10/24 22:47 Range/Units Troponin I High Sensitivity 35 </=54 ng/L Urine Color Light-yellow Yellow Urine Clarity Clear Clear Urine pH 5.5 5.0-9.0 Urine Specific [place] 1.013 1.001-1.035 Urine Protein 1+ H Negative Urine Ketones Negative Negative Urine Blood Negative Negative /uL Urine Nitrite Negative Negative Urine Bilirubin Negative Negative Urine Urobilinogen Normal Negative mg/dL Urine Leukocyte Esterase Negative Negative /uL Urine RBC None seen 0 - 3 /hpf Urine Microscopic WBC 1 0-3 /HPF Urine Squamous Epithelial Cells None seen <5 /hpf Urine Bacteria None seen None Seen /hpf Urine Mucus Few None Seen Urine Sperm Present None Seen /hpf Urine Glucose Normal Normal mg/dL White Blood Count 9.9 4.4-10.8 10^3/uL Red Blood Count 5.65 4.5-5.90 10^6/uL Hemoglobin 15.5 13.5-17.5 g/dL Hematocrit 46.6 41.0-53.0 % Mean Corpuscular Volume 82.4 80.0-100.0 fL Mean Corpuscular Hemoglobin 27.4 L 28.0-32.0 pg Mean Corpuscular Hemoglobin Concent 33.2 32.0-36.0 g/dL Red Cell Distribution Width 17.0 H 11.8-14.3 % Platelet Count 295 140-450 10^3/uL Mean Platelet Volume 7.3 6.9-10.8 fL Neutrophils (%) (Auto) 68.0 37.0-80.0 % Lymphocytes (%) (Auto) 17.9 10.0-50.0 % Monocytes (%) (Auto) 11.2 0.0-12.0 % Eosinophils (%) (Auto) 2.0 0.0-7.0 % Basophils (%) (Auto) 0.9 0.0-2.0 % Neutrophils # (Auto) 6.7 1.6-8.6 10 ^3/uL Lymphocytes # (Auto) 1.8 0.4-5.4 10 ^3/uL Monocytes # (Auto) 1.1 0-1.3 10 ^3/uL Eosinophils # (Auto) 0.2 0-0.8 10 ^3/uL Basophils # (Auto) 0.1 0-0.2 10 ^3/uL Nucleated Red Blood Cells 0.1 % Sodium Level 139 136-145 mmol/L Potassium Level 3.8 3.5-5.1 mmol/L Chloride Level 109 H 98-107 mmol/L Carbon Dioxide Level 21 20-31 mmol/L Anion Gap 9 5-15 Blood Urea Nitrogen 17 9-23 mg/dL Creatinine 1.10 0.700-1.30 mg/dL Glomerular Filtration Rate Calc 82 >90 mL/min BUN/Creatinine Ratio 15.5 10.0-20.0 Serum Glucose 101 74-106 mg/dL Calcium Level 8.6 L 8.7-10.4 mg/dL Magnesium Level 1.9 1.6-2.6 mg/dL Total Bilirubin 1.5 H 0.2-1.0 mg/dL Aspartate Amino Transferase (AST) 20 13-40 U/L Alanine Aminotransferase (ALT) 20 7-40 U/L Alkaline Phosphatase 90 46-116 U/L B-Type Natriuretic Peptide 2176.07 0-100 pg/mL Total Protein 5.8 5.7-8.2 g/dL Albumin 3.8 3.2-4.8 g/dL SEPSIS Sepsis Screen Date sepsis recognized/suspect: Oct 10, 2024 Time Sepsis recognized/suspect: 2243 Recent Procedure: No On Antibiotic Therapy: No Respiratory Rate >20: No Heart Rate >90: No Temp<36 C (96.8 F) or >38.3 C: No SBP <90 or MAP <65 mmHG: No New Acute Mental Status Change: No Is the patient on CPAP, BIPAP,: No Physician Orders Chest Portable (10/10/24 22:32) Home Teaching Grades 7 And 8 Teacher (10/10/24 22:32) Admit (10/11/24 01:23) Allergies (10/11/24 01:23) Code Status (10/11/24 01:23) Oxygen Per Hour (10/11/24 01:23) Complete Blood Count (10/12/24 04:00) Comprehensive Metabolic Panel (10/12/24 04:00) Npo (Nothing By Mouth) Diet (10/11/24 Breakfast) Echo 2d Mode Cardiac Dop (10/11/24 01:23) Nitroglycerin Sublingual (Ntrostat Subli (10/11/24 01:30) Morphine Sulfate Injection (10/11/24 01:30) Oxygen By Nasal Cannula (10/11/24:23) Stat Ekg For Chest Pain (10/11/24 01:23) Notify Md Of Changes From Base (10/11/24 01:23) Workplace Trainer And Assessor For 24 Hours (10/11/24 01:23) Emergency Dysrhythmia Protocol (10/11/24:23) Rhythm Strips Once Every Shift (10/11/24:23) Ceftriaxone 1gm/50ml D5w (Rocephin) (10/11/24 01:30) Azithromycin 500mg/ 250ml (Zithromax 50 (10/11/24 01:30) Vital Signs Date Time Temp Pulse Resp B/P (MAP) Pulse Ox O2 Delivery O2 Flow Rate FiO2 10/11/24 01:43 144/120 10/11/24 01:30 105 14 144/120 (128) 96 10/10/24 23:30 98 18 135/91 (106) 95 10/10/24 22:57 151/100 10/10/24 22:40 103 20 96 Room Air* 0 21 10/10/24 22:40 98.1 103 20 151/100 (117) 95 98.1 10/10/24 22:21 98.7 106 18 136/81 100 98.7 10/10/24 22:20 104 Laboratory Tests Test 10/10/24 22:47 White Blood Count 9.9 10^3/uL (4.4-10.8) Medications Medications Dose Ordered Sig/Katlyn Route Start Time Stop Time Status Last Admin Dose Admin Ceftriaxone Sodium 50 ml @ 100 mls/hr ONCE ONCE IV 10/11/24 01:30 10/11/24 01:59 10/11/24 01:44 100 MLS/HR Furosemide 20 mg ONCE ONCE IV 10/10/24 22:45 10/10/24 22:46 DC 10/10/24 22:57 20 MG Furosemide 20 mg PRN ONCE IV 10/11/24 01:30 10/11/24 01:31 DC 10/11/24 01:43 20 MG Assessment/Plan Assessment/Plan Shortness of breathe due to exacerbation of congestive heart failure with systo lic dysfunction Uncontrolled hypertension Shortness of breathe due to pneumonia due to Gram-positive or Gram-negative organism Shortness of breathe due to COPD exacerbation? -Echocardiography on 09/07/24 : Dilated all cardiac chambers,Severe hypokinesis of all cardiac chambers , LV ejection fraction is only 20%,Severe MR, Critical pulmonary hypertension,RVSP is 61 mm, very high, No effusion -Chest x-ray on 10/10: New right basilar pulmonary airspace disease and pleural effusion. Cardiomegaly and mild diffuse increased prominence of the pulmonary vasculature. -BNP on 10/10: 2176.07 -oxygen via nasal cannula -breathing treatments with albuterol and ipratropium nebulization -ceftriaxone and azithromycin for pneumonia -Jardiance for heart failure -metoprolol and nitroglycerin for hypertension -aspirin to prevent coronary artery disease NSTEMI due to demand ischemia EKG: No ischemic changes Troponin I high sensitive 43 trending down to 35 Hyperlipidemia: Atorvastatin 40 mg Marijuana/methamphetamine use disorder and smoking: Patient was counseled on adverse effects of drug abuse and smoking for more than 27 minutes and was offered resources to help quit. Hyperbilirubinemia: -Most likely due to congestive hepatopathy -Monitor labs sign Abdominal pain due to hepatic congestion secondary to CHF, Hepatomegally? -Consider CT abdomen and pelvis if necessary GI prophylaxis: Not indicated DVT prophylaxis: Not indicated now Diet: Cardiac Goals of care discussed with the patient for more than 27 minutes: Full code status Case discussed with , patient and RN Plan discussed with: Patient, Other (RN) My Orders Orders - SOFY STEWART RESIDENT Procedure Category Date Status Time Admit ADMIT 10/11/24 Transmitted 01:23 Allergies BUCKY 10/11/24 In Process 01:23 Code Status CODE 10/11/24 Transmitted 01:23 Oxygen Per Hour RT 10/11/24 Transmitted 01:23 Complete Blood Count LAB 10/12/24 Verified 04:00 Comprehensive LAB 10/12/24 Verified Metabolic Panel 04:00 Npo (Nothing By DIET 10/11/24 Transmitted Mouth) Diet Breakfast Echo 2d Mode Cardiac US 10/11/24 Logged DOP 01:23 Nitroglycerin PHA 10/11/24 In Process Sublingual (Ntrostat 01:30 Morphine Sulfate [facility] 10/11/24 In Process Injection 01:30 Oxygen By Nasal RT 10/11/24 Transmitted Cannula 01:23 Stat Ekg For Chest [facility] 10/11/24 In Process Pain 01:23 Notify Md Of Changes [facility] 10/11/24 In Process From Base 01:23 Workplace Trainer And Assessor For [facility] 10/11/24 In Process 24 Hours 01:23 Emergency Dysrhythmia [facility] 10/11/24 In Process Protocol 01:23 Rhythm Strips Once [facility] 10/11/24 In Process Every Shift 01:23 Ceftriaxone 1gm/50ml PHA 10/11/24 In Process D5w (Rocephin) 01:30 Azithromycin 500mg/ PHA 10/11/24 In Process 250ml (Zithromax 50 01:30 Common Visit Codes: [id number] INP/OBS CARE (HIGH) Secondary Visit Codes: [id number] CARE PLAN 30 MINUTES SOFY STEWART RESIDENT Oct 11, 2024 02:10
[2024-10-11] MEDS: ALBUTEROL SULF 2.5 MG/0.5ML(0.5%) NEB SOLN NEB PRN (02:38)
[2024-10-11] MEDS: IPRATROPIUM BROM 0.5 MG/2.5ML INH SOL NEB PRN (02:38)
[2024-10-11] MEDS: FUROSEMIDE 40 MG/4 ML VIAL IV ONE (08:28)
[2024-10-11] MEDS ORDERED: ATORVASTATIN 20 MG TAB PO SCH (10:00)
[2024-10-11] MEDS ORDERED: SACUBITRIL-VALSARTAN 24mg/26mg TAB PO SCH (10:00)
[2024-10-11 10:02] LABS: COVID19 ANTIGEN SOFIA FIA NEGATIVE (NEGATIVE)
[2024-10-11] MEDS: ASPirin-EC 81 mg tab PO SCH (10:15)
[2024-10-11] MEDS: SPIRONOLACTONE 25 MG TAB PO SCH (10:15)
[2024-10-11] MEDS: EMPAGLIFLOZIN 10 MG TAB PO SCH (10:15)
[2024-10-11] MEDS: METOPROLOL SUCCINATE XL 50 MG TAB PO SCH (10:16)
--- NOTE | 2024-10-11 11:31 | DVH ---
Exam: CT CT AB PEL WO CON-NO ORAL OR IV History: Abdominal pain, distention Comparison Study: None Technique: Multidetector spiral CT of the abdomen and pelvis was performed from lung bases to pubic symphysis. Imaging was performed without IV contrast. Axial, coronal and sagittal multiplanar reform ats were obtained from the axial data set by the technologist. Radiation dose : Abdomen/Pelvis: CTDIvol 25.49 mGy, DLP 1287.49 mGy*cm. Findings: Evaluation of solid organs is limited due to lack of intravenous contrast use. Lung Bases: Moderate right pleural effusion with associated right basilar atelectasis and consolidati on. Moderate cardiomegaly. Liver: The liver is normal in size. No focal lesions. Gallbladder and biliary Tree: Cholelithiasis noted without secondary findings of cholecystitis or holli iary obstruction. Spleen: Unremarkable Pancreas: The pancreas is grossly normal in appearance. Adrenal Glands: Unremarkable Kidneys: Right renal cyst. Subcentimeter likely hyperdense left renal cysts. No hydronephrosis or ne phrolithiasis. Bladder: Grossly unremarkable for degree of distention. Bowel: The stomach is grossly normal in appearance. Small bowel and colon are normal in caliber and d istribution. Normal appendix is visualized in the right lower quadrant without findings of appendicit is. Ascites: Absent Lymphadenopathy: Shotty retroperitoneal lymphadenopathy. Abdominal wall and Mesentery: Mild diffuse mesenteric hyperemia and stranding. Anasarca. Vasculature: The visualized abdominal aorta is normal in size and caliber. Evaluation of abdominal a nd pelvic vessels is limited due to lack of intravenous contrast. Pelvic Organs: Unremarkable Musculoskeletal: No aggressive focal bony lesions, acute fractures or dislocation. IMPRESSION: 1. No acute abdominal or pelvic findings. Moderate cardiomegaly. Moderate right pleural effusion. R ight basilar atelectasis and consolidation. Diffuse anasarca. Suspect congestive failure and/or flui d overload. Clinical correlation and continued follow-up is recommended. Cholelithiasis. Right renal cyst. Likely hyperdense left renal cysts. This can be further evaluated with MRI of the abdomen wit h contrast. Shotty retroperitoneal lymphadenopathy. Radiation optimization: All CT scans at this facility use at least one of these dose optimization simon hniques: Automated exposure control mA and/or kV adjustment per patient size (includes targeted exams where dose is matched to clinical indication) or iterative reconstruction. HS:Y
[2024-10-11] MEDS: FUROSEMIDE 40 MG/4 ML VIAL IV SCH (17:51)
[2024-10-11] MEDS: IPRATROPIUM BROM 0.5 MG/2.5ML INH SOL NEB SCH (18:00)
[2024-10-11] MEDS: ALBUTEROL SULF 2.5 MG/0.5ML(0.5%) NEB SOLN NEB SCH (18:00)
--- NOTE | 2024-10-11 18:20 | DVHPNRES ---
Progress Note Date Seen: Oct 11, 2024 Resident Creating Document: GRICELDA SEVILLA RESIDENT Medical Necessity Reason Pt with a Central, PICC or Fol: No Subjective Review of Systems 48-year-old male with past medical history of congestive heart failure, COPD not on home oxygen, hypertension comes to the ER with shortness of breaths since last 5 days, after he was discharged from the hospital. His shortness of breath worsens on lying down, improved on sitting up. Shortness of breath starts even when resting, he becomes short of breath while doing his activities of daily living. He denies any chest pain, fever, nausea or vomiting. The patient reports having right-sided abdominal discomfort and a hard mass developing over a period of 2-3 days. The patient denies any constipation. He noticed leg swelling for the same duration. 10/11/24 Patient seen in the ER. Patient appears alert x3, in no distress, he complains of mild shortness of breath and is on room air, feels like he is drowning in his own lungs, needs to get up when laying down due to shortness of breath, his last bowel movement was yesterday is on cardiac diet. Patient also complained of right lower quadrant pain. Patient admitted to using meth before getting admitted to the hospital. He has bilateral moderate pitting edema. Rest of ROS is negative. CT abdomen shows No acute abdominal or pelvic findings. Moderate cardiomegaly. Moderate right pleural effusion. Right basilar atelectasis and consolidation. Diffuse anasarca. Suspect congestive failure and/or fluid overload. Clinical correlation and continued follow-up is recommended. Cholelithiasis. Right renal cyst. Likely hyperdense left renal cysts. This can be further evaluated with MRI of the abdomen with contrast. Shotty retroperitoneal lymphadenopathy. Objective vital signs Vital Sign Date Time Temp Pulse Resp B/P (MAP) Pulse Ox O2 Delivery O2 Flow Rate FiO2 10/11/24 17:51 142/106 10/11/24 17:36 98.4 94 16 97 98.4 10/11/24 07:55 Room Air* 0 21 Total Intake and Output 10/10/24 10/10/24 10/11/24 15:00 23:00 07:00 Output Total 1250 ml Balance -1250 ml medications Current Medications Medications Dose Ordered Sig/Katlyn Route Start Time Stop Time Status Last Admin Dose Admin Nitroglycerin 0.4 mg Q5MINP PRN SL 10/11/24 01:30 Morphine Sulfate 2 mg Q30M PRN IV 10/11/24 01:30 Aspirin 81 mg DAILY PO 10/11/24 10:00 10/11/24 10:15 81 MG Empaglifozin 10 mg DAILY PO 10/11/24 10:00 10/11/24 10:15 10 MG Metoprolol Succinate 25 mg DAILY PO 10/11/24 10:00 10/11/24 10:16 25 MG Furosemide 40 mg BIDD IV 10/11/24 18:00 10/11/24 17:51 40 MG Spironolactone 25 mg DAILY PO 10/11/24 10:00 10/11/24 10:15 25 MG Atorvastatin Calcium 40 mg DAILY PO 10/11/24 22:00 Albuterol 2.5 mg Q4HR NEB 10/11/24 17:45 UNV Ipratropium [place] 0.5 mg Q4HR NEB 10/11/24 17:45 UNV Examination General: Patient alert and oriented in person, place and time. Patient following commands. HEENT: Normocephalic, atraumatic, moist mucous membranes Respiratory/pulmonary: Clear lungs bilaterally, vesicular murmurs present in almost all lung reyna, no associated crackles or wheezes. Cardiovascular: Normal heart sounds S1 and S2 with no associated murmurs Abdomen: Abdomen nondistended, mild right lower quadrant pain Extremities: Moderate 1+ bilateral pitting edema Peripheral Pulses: 3+ Radial (R). 3+ Radial (L). 3+ Dorsalis pedis (R). 3+ Dorsalis pedis(L) Skin: No rashes or pruritus, there is no sacral edema present at this time. 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 -Echocardiography on 09/07/24 : Dilated all cardiac chambers,Severe hypokinesis of all cardiac chambers , LV ejection fraction is only 20%,Severe MR, Critical pulmonary hypertension,RVSP is 61 mm, very high, No effusion -Chest x-ray shows: New right basilar pulmonary airspace disease and pleural effusion. Cardiomegaly and mild diffuse increased prominence of the pulmonary vasculature. -BNP 2176.07 -oxygen via nasal cannula -breathing treatments with albuterol and ipratropium nebulization q.4 hourly scheduled -ceftriaxone and azithromycin for pneumonia -Jardiance for heart failure -metoprolol and nitroglycerin for hypertension -aspirin to prevent coronary artery disease EKG: No ischemic changes Troponins Normal #Hyperlipidemia: Atorvastatin 40 mg #Marijuana/methamphetamine use disorder and smoking: Patient was counseled on adverse effects of drug abuse and smoking for more than 27 minutes and was offered resources to help quit. #Hyperbilirubinemia: -Most likely due to congestive hepatopathy -Monitor labs sign #Abdominal pain due to hepatic congestion secondary to CHF, Hepatomegaly? # asymptomatic cholelithiasis # diffuse anasarca - CT abdomen shows No acute abdominal or pelvic findings. Moderate cardiomegaly. Moderate right pleural effusion. Right basilar atelectasis and consolidation. Diffuse anasarca. Cholelithiasis. # right renal cyst - follow-up outpatient for further the evaluation and management GI prophylaxis: Not indicated DVT prophylaxis: Not indicated now Goals of care discussed with patient for 27 minutes: Full code Case discussed with Dr. Acevedo Plan discussed with: Patient My Orders My Orders Orders - GRICELDA SEVILLA Procedure Category Date Status Time Ct Ab Pel Wo Con-No CT 10/11/24 Resulted Oral Or Iv 09:59 Date of Service: Oct 11, 2024 Billing Provider: LIBRADO HUNTER MD Common Visit Codes: [id number] INP/OBS CARE(HIGH) GRICELDA SEVILLA Oct 11, 2024 18:20 LIBRADO HUNTER MD Oct 15, 2024 00:40
[2024-10-11 19:15] LABS: Cannabinoid Screen, Urine Neg (NEGATIVE)
[2024-10-11 19:21] LABS: Amphetamine Screen, Urine Pos (NEGATIVE); Barbiturate Scree,Urine Neg (NEGATIVE); Benzodiazephine Screen, Urine Neg (NEGATIVE); Cocaine Screen, Urine Neg (NEGATIVE); Opiate Scree,Urine Neg (NEGATIVE); Phencyclidine Screen, Urine Neg (NEGATIVE)
[2024-10-11] MEDS: ATORVASTATIN 20 MG TAB PO SCH (21:54)
[2024-10-12] VITALS (19 sets, daily range): BP systolic 127–160; BP diastolic 68–105; PULSE 56–101; RESP 16–20; TEMP 96.6–97.9; O2SAT 93–100
[2024-10-12 05:31] LABS: Alanine Aminotransferase 22 U/L (7-40); Albumin 3.8 g/dL (3.2-4.8); Alkaline Phosphatase 87 U/L (46-116); Anion Gap 11 (5-15); BUN/Creatinine Ratio 13.8 (10.0-20.0); Blood Urea Nitrogen 21 mg/dL (9-23); Calcium 9.0 mg/dL (8.7-10.4); Carbon Dioxide 23 mmol/L (20-31); Chloride 107 mmol/L (98-107); Glucose 84 mg/dL (74-106); Potassium 3.8 mmol/L (3.5-5.1); Sodium 141 mmol/L (136-145)
[2024-10-12 05:35] LABS: Bilirubin, Total 1.3 mg/dL (0.2-1.0); Total Protein 5.6 g/dL (5.7-8.2)
[2024-10-12 05:43] LABS: Hematocrit 45.5 % (41.0-53.0); Hemoglobin 15.4 g/dL (13.5-17.5); Mean Corpuscular Hemoglobin 27.7 pg (28.0-32.0); Mean Corpuscular Volume 82.0 fL (80.0-100.0); Nucleated Red Blood Cells % 0.1 %
--- NOTE | 2024-10-12 16:54 | DVHPNRES ---
Progress Note Date Seen: Oct 12, 2024 Resident Creating Document: GRICELDA SEVILLA RESIDENT Medical Necessity Reason Pt with a Central, PICC or Fol: No Subjective Review of Systems 48-year-old male with past medical history of congestive heart failure, COPD not on home oxygen, hypertension comes to the ER with shortness of breaths since last 5 days, after he was discharged from the hospital. His shortness of breath worsens on lying down, improved on sitting up. Shortness of breath starts even when resting, he becomes short of breath while doing his activities of daily living. He denies any chest pain, fever, nausea or vomiting. The patient reports having right-sided abdominal discomfort and a hard mass developing over a period of 2-3 days. The patient denies any constipation. He noticed leg swelling for the same duration. 10/11/24 Patient seen in the ER. Patient appears alert x3, in no distress, he complains of mild shortness of breath and is on room air, feels like he is drowning in his own lungs, needs to get up when laying down due to shortness of breath, his last bowel movement was yesterday is on cardiac diet. Patient also complained of right lower quadrant pain. Patient admitted to using meth before getting admitted to the hospital. He has bilateral moderate pitting edema. Rest of ROS is negative. CT abdomen shows No acute abdominal or pelvic findings. Moderate cardiomegaly. Moderate right pleural effusion. Right basilar atelectasis and consolidation. Diffuse anasarca. Suspect congestive failure and/or fluid overload. Clinical correlation and continued follow-up is recommended. Cholelithiasis. Right renal cyst. Likely hyperdense left renal cysts. This can be further evaluated with MRI of the abdomen with contrast. Shotty retroperitoneal lymphadenopathy. 10/12/24 Patient seen at bedside. Patient appears alert x3, comfortable, says he had mild left calf pain due to edema, but feels better than yesterday and has mild shortness of breath and is on room air. Patient reported no pain on palpation of the abdomen. Patient had a bowel movement this morning. Patient asked for bleeding treatment at home. Rest of ROS is negative. Patient's creatinine increased to 1.5, and we decreased Lasix to 20 mg IV daily. Cardiology was consulted for critical pulmonary hypertension. Objective vital signs Vital Sign Date Time Temp Pulse Resp B/P (MAP) Pulse Ox O2 Delivery O2 Flow Rate FiO2 10/12/24 14:18 75 18 93 10/12/24 14:10 Room Air 0.0 10/12/24 14:10 21 10/12/24 13:00 97.7 127/95 (106) 97.7 Total Intake and Output 10/11/24 10/11/24 10/12/24 14:59 22:59 06:59 Intake Total 120 ml 368 ml Output Total 1350 ml 175 ml Balance -1230 ml 193 ml medications Current Medications Medications Dose Ordered Sig/Katlyn Route Start Time Stop Time Status Last Admin Dose Admin Nitroglycerin 0.4 mg Q5MINP PRN SL 10/11/24 01:30 Morphine Sulfate 2 mg Q30M PRN IV 10/11/24 01:30 Aspirin 81 mg DAILY PO 10/11/24 10:00 10/12/24 09:36 81 MG Empaglifozin 10 mg DAILY PO 10/11/24 10:00 10/12/24 09:37 10 MG Metoprolol Succinate 25 mg DAILY PO 10/11/24 10:00 10/12/24 09:40 25 MG Spironolactone 25 mg DAILY PO 10/11/24 10:00 10/12/24 09:37 25 MG Atorvastatin Calcium 40 mg DAILY PO 10/11/24 22:00 10/12/24 09:37 40 MG Albuterol 2.5 mg Q4HR NEB 10/11/24 17:45 10/12/24 14:10 2.5 MG Ipratropium [place] 0.5 mg Q4HR NEB 10/11/24 17:45 10/12/24 14:09 0.5 MG Furosemide 20 mg DAILY IV 10/13/24 10:00 Examination General: Patient alert and oriented in person, place and time. Patient following commands. HEENT: Normocephalic, atraumatic, moist mucous membranes Respiratory/pulmonary: Clear lungs bilaterally, vesicular murmurs present in almost all lung reyna, no associated crackles or wheezes. Cardiovascular: Normal heart sounds S1 and S2 with no associated murmurs Abdomen: Abdomen nondistended, there is no pain to palpation in any of the abdominal quadrants, no palpable masses. Obese abdomen Extremities: Bilateral 2+ pitting edema Peripheral Pulses: 3+ Radial (R). 3+ Radial (L). 3+ Dorsalis pedis (R). 3+ Dorsalis pedis(L) Skin: No rashes or pruritus, there is no sacral edema present at this time. 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 -Echocardiography on 09/07/24 : Dilated all cardiac chambers,Severe hypokinesis of all cardiac chambers , LV ejection fraction is only 20%,Severe MR, Critical pulmonary hypertension,RVSP is 61 mm, very high, No effusion -Chest x-ray shows: New right basilar pulmonary airspace disease and pleural effusion. Cardiomegaly and mild diffuse increased prominence of the pulmonary vasculature. -BNP 2176.07 -oxygen via nasal cannula -breathing treatments with albuterol and ipratropium nebulization q.4 hourly scheduled -ceftriaxone and azithromycin for pneumonia -Jardiance for heart failure -metoprolol and nitroglycerin for hypertension -aspirin to prevent coronary artery disease - cardiology consulted for critical pulmonary hypertension - IV Lasix was decreased to 20 mg daily EKG: No ischemic changes Troponins Normal #Hyperlipidemia: Atorvastatin 40 mg #Marijuana/methamphetamine use disorder and smoking: Patient was counseled on adverse effects of drug abuse and smoking for more than 27 minutes and was offered resources to help quit. #Hyperbilirubinemia: -Most likely due to congestive hepatopathy -Monitor labs sign #Abdominal pain due to hepatic congestion secondary to CHF, Hepatomegaly? # asymptomatic cholelithiasis # diffuse anasarca - CT abdomen shows No acute abdominal or pelvic findings. Moderate cardiomegaly. Moderate right pleural effusion. Right basilar atelectasis and consolidation. Diffuse anasarca. Cholelithiasis. # right renal cyst - follow-up outpatient for further the evaluation and management GI prophylaxis: Not indicated DVT prophylaxis: Not indicated now Goals of care discussed with patient for 27 minutes: Full code Case discussed with Dr. Acevedo Plan discussed with: Patient Date of Service: Oct 12, 2024 Billing Provider: LIBRADO HUNTER MD Common Visit Codes: [id number] INP/OBS CARE(HIGH) GRICELDA SEVILLA RESIDENT Oct 12, 2024 16:54 LIBRADO HUNTER MD Oct 15, 2024 00:50
[2024-10-12] MEDS: HYDROcodone-ACET 5/325MG TAB PO ONE (22:01)
[2024-10-13] VITALS (18 sets, daily range): BP systolic 110–135; BP diastolic 61–95; PULSE 53–103; RESP 16–22; TEMP 97.6–98.3; O2SAT 94–100
[2024-10-13 07:08] LABS: Hematocrit 42.9 % (41.0-53.0); Hemoglobin 14.5 g/dL (13.5-17.5); Mean Corpuscular Hemoglobin 27.8 pg (28.0-32.0); Mean Corpuscular Volume 82.0 fL (80.0-100.0); Nucleated Red Blood Cells % 0.0 %
[2024-10-13 07:30] LABS: Alanine Aminotransferase 20 U/L (7-40); Albumin 3.7 g/dL (3.2-4.8); Alkaline Phosphatase 77 U/L (46-116); Anion Gap 11 (5-15); BUN/Creatinine Ratio 17.5 (10.0-20.0); Calcium 8.8 mg/dL (8.7-10.4); Carbon Dioxide 23 mmol/L (20-31); Chloride 106 mmol/L (98-107); Glucose 91 mg/dL (74-106); Potassium 3.7 mmol/L (3.5-5.1); Sodium 140 mmol/L (136-145)
[2024-10-13 07:31] LABS: Bilirubin, Total 1.3 mg/dL (0.2-1.0); Blood Urea Nitrogen 25 mg/dL (9-23); Total Protein 5.6 g/dL (5.7-8.2)
[2024-10-13] MEDS: FUROSEMIDE 20 MG/2 ML VIAL IV SCH (10:43)
--- NOTE | 2024-10-13 14:41 | DVHPNRES ---
Progress Note Date Seen: Oct 13, 2024 Resident Creating Document: GRICELDA SEVILLA RESIDENT Medical Necessity Reason Pt with a Central, PICC or Fol: No Subjective Review of Systems 48-year-old male with past medical history of congestive heart failure, COPD not on home oxygen, hypertension comes to the ER with shortness of breaths since last 5 days, after he was discharged from the hospital. His shortness of breath worsens on lying down, improved on sitting up. Shortness of breath starts even when resting, he becomes short of breath while doing his activities of daily living. He denies any chest pain, fever, nausea or vomiting. The patient reports having right-sided abdominal discomfort and a hard mass developing over a period of 2-3 days. The patient denies any constipation. He noticed leg swelling for the same duration. 10/11/24 Patient seen in the ER. Patient appears alert x3, in no distress, he complains of mild shortness of breath and is on room air, feels like he is drowning in his own lungs, needs to get up when laying down due to shortness of breath, his last bowel movement was yesterday is on cardiac diet. Patient also complained of right lower quadrant pain. Patient admitted to using meth before getting admitted to the hospital. He has bilateral moderate pitting edema. Rest of ROS is negative. CT abdomen shows No acute abdominal or pelvic findings. Moderate cardiomegaly. Moderate right pleural effusion. Right basilar atelectasis and consolidation. Diffuse anasarca. Suspect congestive failure and/or fluid overload. Clinical correlation and continued follow-up is recommended. Cholelithiasis. Right renal cyst. Likely hyperdense left renal cysts. This can be further evaluated with MRI of the abdomen with contrast. Shotty retroperitoneal lymphadenopathy. 10/12/24 Patient seen at bedside. Patient appears alert x3, comfortable, says he had mild left calf pain due to edema, but feels better than yesterday and has mild shortness of breath and is on room air. Patient reported no pain on palpation of the abdomen. Patient had a bowel movement this morning. Patient asked for bleeding treatment at home. Rest of ROS is negative. Patient's creatinine increased to 1.5, and we decreased Lasix to 20 mg IV daily. Cardiology was consulted for critical pulmonary hypertension. 10/13/24 Patient seen at bedside. Patient appears alert x3, comfortable, still he has mild left calf pain due to edema, has shortness of breath when he walks. Denies any pain on palpation of the abdomen. Patient also feels mild dizziness, lightheaded, but denies any nausea, vomiting, constipation, and reported having normal bowel movements and no dysuria. Patient is receiving nebulized treatments and states that it is helping. Cardiology was consulted and still pending. Objective vital signs Vital Sign Date Time Temp Pulse Resp B/P (MAP) Pulse Ox O2 Delivery O2 Flow Rate FiO2 10/13/24 14:27 103 16 100 10/13/24 12:52 98.0 128/61 (83) 98.0 10/13/24 08:04 Room Air* 0 21 Total Intake and Output 10/12/24 10/12/24 10/13/24 15:00 23:00 07:00 Intake Total 230 ml 1280 ml 350 ml Output Total 900 ml Balance 230 ml 1280 ml -550 ml medications Current Medications Medications Dose Ordered Sig/Katlyn Route Start Time Stop Time Status Last Admin Dose Admin Nitroglycerin 0.4 mg Q5MINP PRN SL 10/11/24 01:30 Morphine Sulfate 2 mg Q30M PRN IV 10/11/24 01:30 Aspirin 81 mg DAILY PO 10/11/24 10:00 10/13/24 09:58 81 MG Empaglifozin 10 mg DAILY PO 10/11/24 10:00 10/13/24 09:58 10 MG Metoprolol Succinate 25 mg DAILY PO 10/11/24 10:00 10/13/24 10:00 25 MG Spironolactone 25 mg DAILY PO 10/11/24 10:00 10/13/24 09:58 25 MG Atorvastatin Calcium 40 mg DAILY PO 10/11/24 22:00 10/13/24 09:58 40 MG Albuterol 2.5 mg Q4HR NEB 10/11/24 17:45 10/13/24 14:21 2.5 MG Ipratropium [place] 0.5 mg Q4HR NEB 10/11/24 17:45 10/13/24 14:21 0.5 MG Furosemide 20 mg DAILY IV 10/13/24 10:00 10/13/24 10:43 20 MG Examination General: Patient alert and oriented in person, place and time. Patient following commands. HEENT: Normocephalic, atraumatic, moist mucous membranes Respiratory/pulmonary: Clear lungs bilaterally, vesicular murmurs present in almost all lung reyna, no associated crackles or wheezes. Cardiovascular: Normal heart sounds S1 and S2 with no associated murmurs Abdomen: Abdomen nondistended, there is no pain to palpation in any of the abdominal quadrants, no palpable masses. Obese abdomen Extremities: Bilateral 1+ pitting edema Peripheral Pulses: 3+ Radial (R). 3+ Radial (L). 3+ Dorsalis pedis (R). 3+ Dorsalis pedis(L) Skin: No rashes or pruritus, there is no sacral edema present at this time. 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 -Echocardiography on 09/07/24 : Dilated all cardiac chambers,Severe hypokinesis of all cardiac chambers , LV ejection fraction is only 20%,Severe MR, Critical pulmonary hypertension,RVSP is 61 mm, very high, No effusion -Chest x-ray shows: New right basilar pulmonary airspace disease and pleural effusion. Cardiomegaly and mild diffuse increased prominence of the pulmonary vasculature. -BNP 2176.07 -oxygen via nasal cannula -breathing treatments with albuterol and ipratropium nebulization q.4 hourly scheduled -ceftriaxone and azithromycin for pneumonia -Jardiance for heart failure -metoprolol and nitroglycerin for hypertension -aspirin to prevent coronary artery disease - cardiology consulted for critical pulmonary hypertension - IV Lasix was decreased to 20 mg daily EKG: No ischemic changes Troponins Normal #Hyperlipidemia: Atorvastatin 40 mg #Marijuana/methamphetamine use disorder and smoking: Patient was counseled on adverse effects of drug abuse and smoking for more than 27 minutes and was offered resources to help quit. #Hyperbilirubinemia: -Most likely due to congestive hepatopathy -Monitor labs sign #Abdominal pain due to hepatic congestion secondary to CHF, Hepatomegaly? # asymptomatic cholelithiasis # diffuse anasarca - CT abdomen shows No acute abdominal or pelvic findings. Moderate cardiomegaly. Moderate right pleural effusion. Right basilar atelectasis and consolidation. Diffuse anasarca. Cholelithiasis. # right renal cyst - follow-up outpatient for further the evaluation and management GI prophylaxis: Not indicated DVT prophylaxis: Not indicated now Goals of care discussed with patient for 27 minutes: Full code Case discussed with Dr. Landa Plan discussed with: Patient Date of Service: Oct 13, 2024 Billing Provider: MIKE LANDA MD Common Visit Codes: [id number] INP/OBS CARE(HIGH) GRICELDA SEVILLA RESIDENT Oct 13, 2024 14:41 MIKE LANDA MD Oct 13, 2024 21:25
[2024-10-13] MEDS: HYDROcodone-ACET 5/325MG TAB PO ONE (18:44)
[2024-10-14] VITALS (19 sets, daily range): BP systolic 119–149; BP diastolic 85–107; PULSE 50–101; RESP 16–20; TEMP 96.6–98; O2SAT 96–100
[2024-10-14] MEDS: LORazepam 0.5 MG TAB PO ONE ×2 (00:11→23:44)
[2024-10-14 07:49] LABS: Hematocrit 43.7 % (41.0-53.0); Hemoglobin 14.5 g/dL (13.5-17.5); Mean Corpuscular Hemoglobin 27.7 pg (28.0-32.0); Mean Corpuscular Volume 83.4 fL (80.0-100.0); Nucleated Red Blood Cells % 0.1 %
[2024-10-14 08:01] LABS: Chloride 105 mmol/L (98-107); Potassium 4.4 mmol/L (3.5-5.1); Sodium 138 mmol/L (136-145)
[2024-10-14 08:02] LABS: Anion Gap 10 (5-15); Carbon Dioxide 23 mmol/L (20-31)
[2024-10-14 08:07] LABS: BUN/Creatinine Ratio 15.4 (10.0-20.0); Blood Urea Nitrogen 22 mg/dL (9-23); Glucose 86 mg/dL (74-106)
[2024-10-14 08:11] LABS: Calcium 8.6 mg/dL (8.7-10.4)
[2024-10-14] MEDS: POLYETHYLENE GLYCOL 17 GM PWDR PO SCH (10:00)
--- NOTE | 2024-10-14 10:33 | DVHINCON2 ---
Date Seen: Oct 14, [address] Sampson Reason for Consultation Critical path severe MR History of Present Illness The patient is a 48-year-old male with a complex cardiac history, including HFrEF, hypertension, nonischemic cardiomyopathy, COPD, and ongoing amphetamine use, who presented to the emergency department via EMS with a two week history of progressive shortness of breath. He was previously admitted in August 2024 for acute CHF exacerbation and was advised to follow-up with Cardiology, though he reports being unable to do so. Cardiology was consulted in the ED for further evaluation of known severe mitral regurgitation identified on echocardiogram performed 09/07/24, which showed a left ventricular ejection fraction of 20%, severely dilated cardiac chambers, RVSP of 61 mmHg, and severe MR. In the ED, the patient was found to have a BNP in , for which IV diuretics were administered. On today's assessment, BNP has decreased to the 1500s. He denies chest pain but reports worsening shortness of breath on exertion and mild non pitting edema in the lower extremities. Twelve lead ECG revealed sinus tachycardia at 1:04 a.m. beats per minute with no signs of acute ischemia. The patient is currently taking carvedilol, spironolactone, and furosemide at home. He has known allergy to lisinopril. Of note, he admits continued amphetamine use, which may be contributing to recurrent decompensation. Past Medical History As stated in HPI Past Surgical History Denies Family History: Alcoholism G8 FATHER FH: [place] (myocardial infarction) G8 FATHER FH: breast cancer G8 MOTHER Family History Reviewed, non-contributory to the management of this case. Social History Admits to continued amphetamine use Allergies: Coded Allergies: Lisinopril (Verified Allergy, Unknown, 09/06/24) Home Meds Active Scripts Metoprolol Succinate (Metoprolol Succinate Er) 25 Mg Tab, 1 TAB PO DAILY, #30 TAB 1 Refill Prov:LIBRADO HUNTER MD 09/15/24 Atorvastatin Calcium (Lipitor) 40 Mg Tab, 1 TAB PO DAILY for 30 Days, #30 TAB 0 Refills Prov:LIBRADO HUNTER MD 09/15/24 Empagliflozin (Jardiance) 10 Mg Tab, 10 MG PO DAILY for 30 Days, #30 TAB 0 Refills Prov:LIBRADO HUNTER MD 09/15/24 Furosemide (Furosemide) 40 Mg Tab, 1 TAB PO DAILY, #30 TAB 1 Refill Prov:LIBRADO HUNTER MD 09/15/24 Aspirin (Aspirin Low Dose) 81 Mg Tab, 81 MG PO DAILY for 30 Days, #30 TAB Prov:LIBRADO HUNTER MD 09/15/24 Current Medications Current Medications Medications (Trade) Dose Ordered Sig/Katlyn Route PRN Reason Start Time Stop Time Status Last Admin Polyethylene Glycol (Miralax 17GM Powder) 17 gm DAILY PO 10/14/24 10:00 Review of Systems Constitutional: No symptom reported Ears, Nose, & Throat: No symptom reported Eyes: No symptom reported Neurological: No symptoms reported Pulmonary/Respiratory: Reports dyspnea. Cardiovascular: Reports worsening shortness of breath on exertion. Denies chest pain or palpitations. Gastrointestinal: No symptom reported Genitourinary: No symptom reported Musculoskeletal: No symptom reported Skin: No symptom reported Psychiatric: No symptom reported Endocrine: No symptom reported Hemotologic/Lymphatic: No symptom reported Vital Signs Vital Signs Date Time Temp Pulse Resp B/P (MAP) Pulse Ox O2 Delivery O2 Flow Rate FiO2 10/14/24 10:00 53 126/91 10/14/24 09:55 16 100 10/14/24 09:47 Room Air* 0 21 10/14/24 05:00 96.6 96.6 Physical Exam INITIAL VITAL SIGNS: Reviewed by me GENERAL: Alert and interactive. No acute distress. HEAD: Head is normocephalic and atraumatic. EYES: EOMI, PERRL. No scleral icterus. No conjunctival injection. ENT: Moist mucous membranes. NECK: Supple, No masses, Full range of motion. RESPIRATORY: Diminished lung sounds CV: Tachycardic, regular rhythm. Grade III/ holosystolic murmur at the apex, no S3/S4 noted, bilateral lower extremity nonpitting edema GI/: Active bowel sounds, soft, nondistended, nontender. No guarding. No rebound. No masses. No CVA tenderness. INTEGUMENTARY: Warm and dry. No obvious rashes. NEUROLOGIC: Alert and oriented. Face is symmetric. Speech is normal. Moves all extremities equally. Labs/Diagnostic Data Labs Test 10/14/24 06:55 10/13/24 06:22 10/11/24 07:45 10/11/24 00:51 Range/Units White Blood Count 9.5 4.4-10.8 10^3/uL Red Blood Count 5.24 4.5-5.90 10^6/uL Hemoglobin 14.5 13.5-17.5 g/dL Hematocrit 43.7 41.0-53.0 % Mean Corpuscular Volume 83.4 80.0-100.0 fL Mean Corpuscular Hemoglobin 27.7 L 28.0-32.0 pg Mean Corpuscular Hemoglobin Concent 33.2 32.0-36.0 g/dL Red Cell Distribution Width 16.8 H 11.8-14.3 % Platelet Count 220 140-450 10^3/uL Mean Platelet Volume 7.5 6.9-10.8 fL Neutrophils (%) (Auto) 63.8 37.0-80.0 % Lymphocytes (%) (Auto) 18.4 10.0-50.0 % Monocytes (%) (Auto) 14.2 H 0.0-12.0 % Eosinophils (%) (Auto) 2.8 0.0-7.0 % Basophils (%) (Auto) 0.8 0.0-2.0 % Neutrophils # (Auto) 6.1 1.6-8.6 10 ^3/uL Lymphocytes # (Auto) 1.7 0.4-5.4 10 ^3/uL Monocytes # (Auto) 1.4 H 0-1.3 10 ^3/uL Eosinophils # (Auto) 0.3 0-0.8 10 ^3/uL Basophils # (Auto) 0.1 0-0.2 10 ^3/uL Nucleated Red Blood Cells 0.1 % Sodium Level 138 136-145 mmol/L Potassium Level 4.4 3.5-5.1 mmol/L Chloride Level 105 98-107 mmol/L Carbon Dioxide Level 23 20-31 mmol/L Anion Gap 10 5-15 Blood Urea Nitrogen 22 9-23 mg/dL Creatinine 1.43 H 0.700-1.30 mg/dL Glomerular Filtration Rate Calc 60 >90 mL/min BUN/Creatinine Ratio 15.4 10.0-20.0 Serum Glucose 86 74-106 mg/dL Calcium Level 8.6 L 8.7-10.4 mg/dL Magnesium Level 2.3 1.6-2.6 mg/dL B-Type Natriuretic Peptide 1579.93 0-100 pg/mL Total Bilirubin 1.3 H 0.2-1.0 mg/dL Aspartate Amino Transferase (AST) 17 13-40 U/L Alanine Aminotransferase (ALT) 20 7-40 U/L Alkaline Phosphatase 77 46-116 U/L Total Protein 5.6 L 5.7-8.2 g/dL Albumin 3.7 3.2-4.8 g/dL Influenza Type A Antigen Negative Negative Influenza Type B Antigen Negative Negative SARS-CoV-2 Antigen (Rapid) Negative NEGATIVE Troponin I High Sensitivity 35 </=54 ng/L Thyroid Stimulating Hormone (TSH) 1.37 0.55-4.78 uIU/mL Test 10/10/24 23:40 10/10/24 06:00 Range/Units Urine Color Light-yellow Yellow Urine Clarity Clear Clear Urine pH 5.5 5.0-9.0 Urine Specific [place] 1.013 1.001-1.035 Urine Protein 1+ H Negative Urine Ketones Negative Negative Urine Blood Negative Negative /uL Urine Nitrite Negative Negative Urine Bilirubin Negative Negative Urine Urobilinogen Normal Negative mg/dL Urine Leukocyte Esterase Negative Negative /uL Urine RBC None seen 0 - 3 /hpf Urine Microscopic WBC 1 0-3 /HPF Urine Squamous Epithelial Cells None seen <5 /hpf Urine Bacteria None seen None Seen /hpf Urine Mucus Few None Seen Urine Sperm Present None Seen /hpf Urine Glucose Normal Normal mg/dL Urine Opiates Screen Neg NEGATIVE Urine Fentanyl Screen Neg NEGATIVE Urine Barbiturates Screen Neg NEGATIVE Urine Phencyclidine Screen Neg NEGATIVE Urine Amphetamines Screen Pos NEGATIVE Urine Benzodiazepines Screen Neg NEGATIVE Urine Cocaine Screen Neg NEGATIVE Urine Cannabinoids Screen Neg NEGATIVE Microbiology Date/Time Source Procedure Growth Status 10/11/24 13:50 Nose MRSA Screen - Final Complete PROCEDURE(s): CXRP - CHEST PORTABLE REASON: SOB ORDER NUMBER(s): [id number], ACCESSION NUMBER(s): [id number] CHEST RADIOGRAPH Indication: SOB Technique: Single frontal view of the chest was obtained COMPARISON: XY CHEST XRAY 1 VIEW on DOS: 09/07/24 FINDINGS: Lines and Tubes: None Lungs: Diffuse increased prominence of the pulmonary vasculature. New right basilar pulmonary airspace disease and pleural effusion. No pneumothorax. Cardiomediastinal contours: Cardiomegaly. Bones: Unremarkable IMPRESSION: 1. New right basilar pulmonary airspace disease and pleural effusion. 2. Cardiomegaly and mild diffuse increased prominence of the pulmonary vasculature. Assessment Acute on chronic decompensated heart failure, possibly precipitated by med ication non adherence, ongoing amphetamine use, and severe valvular disease. 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 Medical noncompliance Plan/Recommendation (Dr. Villafana ): For recommend continuation of IV diuretics to optimize volume status, with close monitoring of electrolytes, renal function, and daily weights. Heart failure therapy should be optimized: To continue with beta alhaji, spironolactone, consider Entresto if blood pressure is adequate and there is no history of angioedema, given the patient's lisinopril allergy. The patient has severe MR warrants further evaluation, and we recommend [facility] to further evaluate. The patient admits to ongoing amphetamine use, which likely contributes to cardiac decompensation, we strongly recommend addiction medicine consultation and counseling. And referral to outpatient substance use treatment programs. The patient education and medication adherence, diet, and follow-up is essential. Cardiology will continue to follow-up during hospitalization. This medical document was created using an electronic medical record system with voice recognition software and computerized dictation system. Although this document has been carefully reviewed, there might still be some phonetic and typographical errors. Occasional wrong-word or ``sound-alike substitutions may have occurred due to the inherent limitations of voice recognition software. These areas are purely typographical due to imperfections of the software programs and do not reflect any compromise in the patient's medical care. Please read the chart carefully and recognize, using context, where these substitutions have occurred. Plan discussed with: Patient Plan discussed with: Patient NYHA Physical activity limitations: Class3(Marked) ordinary Date of Service: Oct 14, 2024 Billing Provider: EDISON VILLAFANA MD Cardiology Common Codes: CONSULT ONLY Cardiology Consultation Codes: [id number] CONSULT <45MIN MARILIN [employer] BENDER Oct 14, 2024 10:33
--- NOTE | 2024-10-14 14:17 | DVHINCON2 ---
Date of service: Oct 14, 2024 History of Present Illness The patient is a 48-year-old male with a complex cardiac history, including HFrEF, hypertension, nonischemic cardiomyopathy, COPD, and ongoing amphetamine u se, who presented to the emergency department via EMS with a two week history of progressive shortness of breath. He was previously admitted in August 2024 for acute CHF exacerbation and was advised to follow-up with Cardiology, though he reports being unable to do so. Cardiology was consulted in the ED for further evaluation of known severe mitral regurgitation identified on echocardiogram performed 09/07/24, which showed a left ventricular ejection fraction of 20%, severely dilated cardiac chambers, RVSP of 61 mmHg, and severe MR. In the ED, the patient was found to have a BNP in , for which IV diuretics were administered. On today's assessment, BNP has decreased to the 1500s. He denies chest pain but reports worsening shortness of breath on exertion and mild non pitting edema in the lower extremities. Twelve lead ECG revealed sinus tachycardia at 1:04 a.m. beats per minute with no signs of acute ischemia. The patient is currently taking carvedilol, spironolactone, and furosemide at home. He has known allergy to lisinopril. Of note, he admits continued amphetamine use, which may be contributing to recurrent decompensation. Past Medical History Past Medical History As stated in HPI Past Surgical History Past Surgical History Denies Family & Social History Family History: Alcoholism G8 FATHER FH: [place] (myocardial infarction) G8 FATHER FH: breast cancer G8 MOTHER Family History Reviewed, non-contributory to the management of this case. Social History Admits to continued amphetamine use Past Medical History reviewed Family History: Alcoholism G8 FATHER FH: [place] (myocardial infarction) G8 FATHER FH: breast cancer G8 MOTHER Allergies: Coded Allergies: Lisinopril (Verified Allergy, Unknown, 09/06/24) Home Meds Active Scripts Metoprolol Succinate (Metoprolol Succinate Er) 25 Mg Tab, 1 TAB PO DAILY, #30 TAB 1 Refill Prov:LIBRADO HUNTER MD 09/15/24 Atorvastatin Calcium (Lipitor) 40 Mg Tab, 1 TAB PO DAILY for 30 Days, #30 TAB 0 Refills Prov:LIBRADO HUNTER MD 09/15/24 Empagliflozin (Jardiance) 10 Mg Tab, 10 MG PO DAILY for 30 Days, #30 TAB 0 Refills Prov:LIBRADO HUNTER MD 09/15/24 Furosemide (Furosemide) 40 Mg Tab, 1 TAB PO DAILY, #30 TAB 1 Refill Prov:LIBRADO HUNTER MD 09/15/24 Aspirin (Aspirin Low Dose) 81 Mg Tab, 81 MG PO DAILY for 30 Days, #30 TAB Prov:LIBRADO HUNTER MD 09/15/24 Current Medications Current Medications Medications (Trade) Dose Ordered Sig/Katlyn Route PRN Reason Start Time Stop Time Status Last Admin Polyethylene Glycol (Miralax 17GM Powder) 17 gm DAILY PO 10/14/24 10:00 Furosemide (Lasix Injection) 20 mg BIDD IV 10/14/24 18:00 Review of Systems 10 pt ros otherwise negative Vital Signs Vital Signs Date Time Temp Pulse Resp B/P (MAP) Pulse Ox O2 Delivery O2 Flow Rate FiO2 10/14/24 13:28 50 16 100 10/14/24 13:20 Room Air 10/14/24 13:20 0 21 10/14/24 10:00 126/91 10/14/24 09:00 97.9 97.9 Labs/Diagnostic Data Labs Test 10/14/24 06:55 10/13/24 06:22 10/11/24 07:45 10/11/24 00:51 Range/Units White Blood Count 9.5 4.4-10.8 10^3/uL Red Blood Count 5.24 4.5-5.90 10^6/uL Hemoglobin 14.5 13.5-17.5 g/dL Hematocrit 43.7 41.0-53.0 % Mean Corpuscular Volume 83.4 80.0-100.0 fL Mean Corpuscular Hemoglobin 27.7 L 28.0-32.0 pg Mean Corpuscular Hemoglobin Concent 33.2 32.0-36.0 g/dL Red Cell Distribution Width 16.8 H 11.8-14.3 % Platelet Count 220 140-450 10^3/uL Mean Platelet Volume 7.5 6.9-10.8 fL Neutrophils (%) (Auto) 63.8 37.0-80.0 % Lymphocytes (%) (Auto) 18.4 10.0-50.0 % Monocytes (%) (Auto) 14.2 H 0.0-12.0 % Eosinophils (%) (Auto) 2.8 0.0-7.0 % Basophils (%) (Auto) 0.8 0.0-2.0 % Neutrophils # (Auto) 6.1 1.6-8.6 10 ^3/uL Lymphocytes # (Auto) 1.7 0.4-5.4 10 ^3/uL Monocytes # (Auto) 1.4 H 0-1.3 10 ^3/uL Eosinophils # (Auto) 0.3 0-0.8 10 ^3/uL Basophils # (Auto) 0.1 0-0.2 10 ^3/uL Nucleated Red Blood Cells 0.1 % Sodium Level 138 136-145 mmol/L Potassium Level 4.4 3.5-5.1 mmol/L Chloride Level 105 98-107 mmol/L Carbon Dioxide Level 23 20-31 mmol/L Anion Gap 10 5-15 Blood Urea Nitrogen 22 9-23 mg/dL Creatinine 1.43 H 0.700-1.30 mg/dL Glomerular Filtration Rate Calc 60 >90 mL/min BUN/Creatinine Ratio 15.4 10.0-20.0 Serum Glucose 86 74-106 mg/dL Calcium Level 8.6 L 8.7-10.4 mg/dL Magnesium Level 2.3 1.6-2.6 mg/dL B-Type Natriuretic Peptide 1579.93 0-100 pg/mL Total Bilirubin 1.3 H 0.2-1.0 mg/dL Aspartate Amino Transferase (AST) 17 13-40 U/L Alanine Aminotransferase (ALT) 20 7-40 U/L Alkaline Phosphatase 77 46-116 U/L Total Protein 5.6 L 5.7-8.2 g/dL Albumin 3.7 3.2-4.8 g/dL Influenza Type A Antigen Negative Negative Influenza Type B Antigen Negative Negative SARS-CoV-2 Antigen (Rapid) Negative NEGATIVE Troponin I High Sensitivity 35 </=54 ng/L Thyroid Stimulating Hormone (TSH) 1.37 0.55-4.78 uIU/mL Test 10/10/24 23:40 10/10/24 06:00 Range/Units Urine Color Light-yellow Yellow Urine Clarity Clear Clear Urine pH 5.5 5.0-9.0 Urine Specific [place] 1.013 1.001-1.035 Urine Protein 1+ H Negative Urine Ketones Negative Negative Urine Blood Negative Negative /uL Urine Nitrite Negative Negative Urine Bilirubin Negative Negative Urine Urobilinogen Normal Negative mg/dL Urine Leukocyte Esterase Negative Negative /uL Urine RBC None seen 0 - 3 /hpf Urine Microscopic WBC 1 0-3 /HPF Urine Squamous Epithelial Cells None seen <5 /hpf Urine Bacteria None seen None Seen /hpf Urine Mucus Few None Seen Urine Sperm Present None Seen /hpf Urine Glucose Normal Normal mg/dL Urine Opiates Screen Neg NEGATIVE Urine Fentanyl Screen Neg NEGATIVE Urine Barbiturates Screen Neg NEGATIVE Urine Phencyclidine Screen Neg NEGATIVE Urine Amphetamines Screen Pos NEGATIVE Urine Benzodiazepines Screen Neg NEGATIVE Urine Cocaine Screen Neg NEGATIVE Urine Cannabinoids Screen Neg NEGATIVE Microbiology Date/Time Source Procedure Growth Status 10/11/24 13:50 Nose MRSA Screen - Final Complete Assessment severe chf meth abuse mitral regurg htn obesity Plan/Recommendation MR is 2/2 to functional MR, from dilated CHF consider LHC if pt amenable start jardiance, and BB iv lasix metolazone x 1 needs to stop drugs hank or will do very poorly/ high morbidity/ / risk Plan discussed with: Patient EDISON VILLAFANA MD Oct 14, 2024 14:17
[2024-10-14 15:03] LABS: INR 1.18 (0.9-1.15); Prothrombin Time 12.3 sec (9.3-11.8)
--- NOTE | 2024-10-14 15:24 | DVHPNRES ---
Progress Note Date Seen: Oct 14, 2024 Resident Creating Document: DANIELLE WOLFE RESIDENT Medical Necessity Reason Pt with a Central, PICC or Fol: No Subjective Review of Systems 48-year-old male with past medical history of congestive heart failure, COPD not on home oxygen, hypertension comes to the ER with shortness of breaths since last 5 days, after he was discharged from the hospital. His shortness of breath worsens on lying down, improved on sitting up. Shortness of breath starts even when resting, he becomes short of breath while doing his activities of daily living. He denies any chest pain, fever, nausea or vomiting. The patient reports having right-sided abdominal discomfort and a hard mass developing over a period of 2-3 days. The patient denies any constipation. He noticed leg swelling for the same duration. ROS: 10/11/24 Patient seen in the ER. Patient appears alert x3, in no distress, he complains of mild shortness of breath and is on room air, feels like he is drowning in his own lungs, needs to get up when laying down due to shortness of breath, his last bowel movement was yesterday is on cardiac diet. Patient also complained of right lower quadrant pain. Patient admitted to using meth before getting admitted to the hospital. He has bilateral moderate pitting edema. Rest of ROS is negative. CT abdomen shows No acute abdominal or pelvic findings. Moderate cardiomegaly. Moderate right pleural effusion. Right basilar atelectasis and consolidation. Diffuse anasarca. Suspect congestive failure and/or fluid overload. Clinical correlation and continued follow-up is recommended. Cholelithiasis. Right renal cyst. Likely hyperdense left renal cysts. This can be further evaluated with MRI of the abdomen with contrast. Shotty retroperitoneal lymphadenopathy. 10/12/24 Patient seen at bedside. Patient appears alert x3, comfortable, says he had mild left calf pain due to edema, but feels better than yesterday and has mild shortness of breath and is on room air. Patient reported no pain on palpation of the abdomen. Patient had a bowel movement this morning. Patient asked for bleeding treatment at home. Rest of ROS is negative. Patient's creatinine increased to 1.5, and we decreased Lasix to 20 mg IV daily. Cardiology was consulted for critical pulmonary hypertension. 10/13/24 Patient seen at bedside. Patient appears alert x3, comfortable, still he has mild left calf pain due to edema, has shortness of breath when he walks. Denies any pain on palpation of the abdomen. Patient also feels mild dizziness, lightheaded, but denies any nausea, vomiting, constipation, and reported having normal bowel movements and no dysuria. Patient is receiving nebulized treatments and states that it is helping. Cardiology was consulted and still pending. 10/14/24: patient was seen and evaluated by me at the bedside. Patient appears alert x3, comfortable and reports feeling better after the CPAP and Ativan given to him yesterday. Cardiology consult was done today, they suggested: the patient has severe MR warrants further evaluation, and we recommend [facility] to further evaluate. MR is 2/2 to functional MR, from dilated CHF, start jardiance, and BB, iv Lasix, metolazone x 1 Objective vital signs Vital Sign Date Time Temp Pulse Resp B/P (MAP) Pulse Ox O2 Delivery O2 Flow Rate FiO2 10/14/24 15:10 128/99 10/14/24 13:28 50 16 100 10/14/24 13:20 Room Air 10/14/24 13:20 0 21 10/14/24 13:00 98.0 98.0 Total Intake and Output 10/13/24 10/13/24 10/14/24 15:00 23:00 07:00 Intake Total 620 ml 700 ml Output Total 150 ml 1250 ml Balance -150 ml -630 ml 700 ml medications Current Medications Medications Dose Ordered Sig/Katlyn Route Start Time Stop Time Status Last Admin Dose Admin Nitroglycerin 0.4 mg Q5MINP PRN SL 10/11/24 01:30 Morphine Sulfate 2 mg Q30M PRN IV 10/11/24 01:30 Aspirin 81 mg DAILY PO 10/11/24 10:00 10/14/24 09:02 81 MG Empaglifozin 10 mg DAILY PO 10/11/24 10:00 10/14/24 09:02 10 MG Metoprolol Succinate 25 mg DAILY PO 10/11/24 10:00 10/13/24 10:00 25 MG Spironolactone 25 mg DAILY PO 10/11/24 10:00 10/14/24 09:02 25 MG Atorvastatin Calcium 40 mg DAILY PO 10/11/24 22:00 10/14/24 09:02 40 MG Albuterol 2.5 mg Q4HR NEB 10/11/24 17:45 10/14/24 13:20 2.5 MG Ipratropium [place] 0.5 mg Q4HR NEB 10/11/24 17:45 10/14/24 13:20 0.5 MG Polyethylene Glycol 17 gm DAILY PO 10/14/24 10:00 Furosemide 20 mg BIDD IV 10/14/24 18:00 Examination General: Patient alert and oriented in person, place and time. Patient following commands. HEENT: Normocephalic, atraumatic, moist mucous membranes Respiratory/pulmonary: Clear lungs bilaterally, vesicular murmurs present in almost all lung reyna, no associated crackles or wheezes. Cardiovascular: Normal heart sounds S1 and S2 with no associated murmurs Abdomen: Abdomen nondistended, there is no pain to palpation in any of the abdominal quadrants, no palpable masses. Obese abdomen Extremities: Bilateral 1+ pitting edema Peripheral Pulses: 3+ Radial (R). 3+ Radial (L). 3+ Dorsalis pedis (R). 3+ Dorsalis pedis(L) Skin: No rashes or pruritus, there is no sacral edema present at this time. 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 -Echocardiography on 09/07/24 : Dilated all cardiac chambers,Severe hypokinesis of all cardiac chambers , LV ejection fraction is only 20%,Severe MR, Critical pulmonary hypertension,RVSP is 61 mm, very high, No effusion -Chest x-ray shows: New right basilar pulmonary airspace disease and pleural effusion. Cardiomegaly and mild diffuse increased prominence of the pulmonary vasculature. -BNP 2176.07 -oxygen via nasal cannula -breathing treatments with albuterol and ipratropium nebulization q.4 hourly scheduled -ceftriaxone and azithromycin for pneumonia -Jardiance for heart failure -metoprolol and nitroglycerin for hypertension -aspirin to prevent coronary artery disease - cardiology consulted for critical pulmonary hypertension - IV Lasix was decreased to 20 mg daily -EKG: No ischemic changes Troponins Normal -Consult suggested the patient has severe MR warrants further evaluation, and we recommend [facility] to further evaluate. MR is 2/2 to functional MR, from dilated CHF, start jardiance, and BB, iv Lasix, metolazone x 1 -NPO #Hyperlipidemia: -Atorvastatin 40 mg #Marijuana/methamphetamine use disorder and smoking: -Patient was counseled on adverse effects of drug abuse and smoking for more than 27 minutes and was offered resources to help quit. #Hyperbilirubinemia: -Most likely due to congestive hepatopathy -Monitor labs sign #Abdominal pain due to hepatic congestion secondary to CHF, Hepatomegaly? # asymptomatic cholelithiasis # diffuse anasarca - CT abdomen shows No acute abdominal or pelvic findings. Moderate cardiomegaly. Moderate right pleural effusion. Right basilar atelectasis and consolidation. Diffuse anasarca. Cholelithiasis. # right renal cyst - follow-up outpatient for further the evaluation and management GI prophylaxis: Not indicated DVT prophylaxis: Not indicated now diet: NPO Goals of care discussed with patient for 27 minutes: Full code Case discussed with Dr. Landa Plan discussed with: Patient, Other (rn) Dietary Evaluation Review Recommendations by RD: Dietary education by RD Comments: 1) Continue cardiac diet. Encourage optimal PO intake 2) Refer to outpatient RD for weight management 3) Follow-up with cardiology, pulmonology, and nephrology 4) Follow-up with social sciences department chair r/t methamphetamine use 5) Continue to monitor I&O, labs, and skin integrity Expected Outcomes/Goals: 1) appetite and labs to improve 2) gradual wt loss 3) f/u in 3-5 days Date of Service: Oct 14, 2024 Billing Provider: MIKE LANDA MD Common Visit Codes: [id number] INP/OBS CARE(HIGH) DANIELLE WOLFE RESIDENT Oct 14, 2024 15:24 MIKE LANDA MD Oct 14, 2024 21:46
[2024-10-14] MEDS: FUROSEMIDE 20 MG/2 ML VIAL IV SCH (17:26)
--- NOTE | 2024-10-14 23:55 | ECG ---
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
[2024-10-15] VITALS (25 sets, daily range): BP systolic 118–140; BP diastolic 80–102; PULSE 59–103; RESP 12–22; TEMP 97.1–98.4; O2SAT 93–100
--- NOTE | 2024-10-15 06:58 | DVH ---
CHEST RADIOGRAPH Indication: preop Technique: Single frontal view of the chest was obtained COMPARISON: XY CHEST PORTABLE on DOS: 10/10/24, XY CHEST XRAY 1 VIEW on DOS: 09/07/24 FINDINGS: Lines and Tubes: None Lungs: Moderate diffuse increased prominence of the pulmonary vasculature and small bilateral pleural effusions, [id number]-[id number]-left. No pneumothorax. Cardiomediastinal contours: Cardiomegaly. Bones: Unremarkable IMPRESSION: 1. Cardiomegaly, Moderate diffuse increased prominence of the pulmonary vasculature and small bilater al pleural effusions, [id number]-left.
[2024-10-15 07:52] LABS: INR 1.22 (0.9-1.15); Prothrombin Time 12.7 sec (9.3-11.8)
[2024-10-15 07:59] LABS: Alanine Aminotransferase 17 U/L (7-40); Albumin 3.6 g/dL (3.2-4.8); Alkaline Phosphatase 82 U/L (46-116); Anion Gap 11 (5-15); BUN/Creatinine Ratio 17.0 (10.0-20.0); Calcium 8.7 mg/dL (8.7-10.4); Carbon Dioxide 25 mmol/L (20-31); Chloride 103 mmol/L (98-107); Glucose 85 mg/dL (74-106); Potassium 3.7 mmol/L (3.5-5.1); Sodium 139 mmol/L (136-145)
[2024-10-15 08:02] LABS: Bilirubin, Total 1.6 mg/dL (0.2-1.0); Blood Urea Nitrogen 24 mg/dL (9-23); Total Protein 5.6 g/dL (5.7-8.2)
[2024-10-15] MEDS: IODIXANOL 320MG/ML 100ML BTL IV ONE ×2 (10:39→11:40)
[2024-10-15] MEDS: MIDAZOLAM HCL 2MG/2ML 2ml VIAL (1mg/ml) ONE (11:59)
[2024-10-15] MEDS: HEPARIN SODIUM (PORCINE) 5000 UNITS/ML 1ML VIAL ONE (11:59)
[2024-10-15] MEDS: fentaNYL CITRATE 100 MCG/2 ML VL ONE (11:59)
[2024-10-15] MEDS: LIDOCAINE 2%HCL (LOCAL ANESTH.) INJ 20ML MDV ONE (12:00)
[2024-10-15] MEDS: VERAPAMIL 2.5MG/ML INJ 2ML VIAL IV ONE (12:00)
[2024-10-15] MEDS: ANGIOMAX 250 MG VIAL IV ONE (12:00)
[2024-10-15] MEDS: SODIUM CHL 0.9% 50 ML ONE (12:00)
--- NOTE | 2024-10-15 12:46 | DVHPN2 ---
Progress Note Date Seen: Oct 15, 2024 Medical Necessity Reason Pt with a Central, PICC or Fol: No Subjective Patient reports: Feels better Other Systems: sp cath and pci Objective vital signs Vital Sign Date Time Temp Pulse Resp B/P (MAP) Pulse Ox O2 Delivery O2 Flow Rate FiO2 10/15/24 10:26 88 18 100 10/15/24 10:20 Room Air 0.0 10/15/24 10:20 21 10/15/24 09:56 140/102 10/15/24 09:00 97.1 97.1 Total Intake and Output 10/14/24 10/14/24 10/15/24 15:00 23:00 07:00 Intake Total 800 ml 240 ml Output Total 1150 ml 1200 ml Balance -350 ml -960 ml medications Current Medications Medications Dose Ordered Sig/Katlyn Route Start Time Stop Time Status Last Admin Dose Admin Nitroglycerin 0.4 mg Q5MINP PRN SL 10/11/24 01:30 Morphine Sulfate 2 mg Q30M PRN IV 10/11/24 01:30 Aspirin 81 mg DAILY PO 10/11/24 10:00 10/15/24 09:55 81 MG Empaglifozin 10 mg DAILY PO 10/11/24 10:00 10/15/24 09:55 10 MG Metoprolol Succinate 25 mg DAILY PO 10/11/24 10:00 10/15/24 09:56 25 MG Spironolactone 25 mg DAILY PO 10/11/24 10:00 10/15/24 09:55 25 MG Atorvastatin Calcium 40 mg DAILY PO 10/11/24 22:00 10/15/24 09:55 40 MG Albuterol 2.5 mg Q4HR NEB 10/11/24 17:45 10/15/24 10:20 2.5 MG Ipratropium [place] 0.5 mg Q4HR NEB 10/11/24 17:45 10/15/24 10:20 0.5 MG Polyethylene Glycol 17 gm DAILY PO 10/14/24 10:00 Furosemide 20 mg BIDD IV 10/14/24 18:00 10/14/24 17:26 20 MG Examination: GENERAL:Abnormal, HEENT:Abnormal, LUNGS:Abnormal, CVS:Abnormal, ABDOMEN:Abnormal laboratory and microbiology Laboratory Tests 10/15/24 07:08 10/14/24 06:55 Test 10/15/24 07:08 Range/Units Serum Glucose 85 74-106 mg/dL Microbiology Date/Time Source Procedure Growth Status 10/11/24 13:50 Nose MRSA Screen - Final Complete Problem List/Assessment/Plan Problem List/Assessment/Plan sever chf meth abuse sever MR cardiomegaly ckd s/p PCI to distal CX cont dapt metolazone again today lvedp still quite high cont GDMT (minus acei allergy) avoid meth drugs/ cannot miss dapt! Plan discussed with: Patient My Orders My Orders Orders - EDISON VILLAFANA MD Procedure Category Date Status Time Cl Left Heart Cath CL 10/14/24 Logged 13:26 Policy Writer Typist: Obtain ORDERS 10/14/24 Transmitted Consent For: 13:26 Npo (Nothing By DIET 10/15/24 Transmitted Mouth) Diet Breakfast Urinalysis LAB 10/15/24 Logged 01:03 Type And Screen BBK 10/15/24 In Process 04:00 Chest Portable XY 10/15/24 Resulted 04:00 Cl Left Heart Cath CL 10/15/24 Taken 12:05 Dietary Evaluation Review Recommendations by RD: Dietary education by RD Comments: 1) Continue cardiac diet. Encourage optimal PO intake 2) Refer to outpatient RD for weight management 3) Follow-up with cardiology, pulmonology, and nephrology 4) Follow-up with social security specialist r/t methamphetamine use 5) Continue to monitor I&O, labs, and skin integrity Expected Outcomes/Goals: 1) appetite and labs to improve 2) gradual wt loss 3) f/u in 3-5 days Date of Service: Oct 15, 2024 Billing Provider: EDISON VILLAFANA MD Common Visit Codes: NOT BILLABLE EDISON VILLAFANA MD Oct 15, 2024 12:46
--- NOTE | 2024-10-15 12:55 | DVHOP2 ---
Operative Report Operative Report CARDIAC CAREER DEVELOPMENT DIRECTOR PROCEDURE REPORT [place], [place] Date of Service: 10/15/24 Lean Manufacturing Engineer: Edison Villafana MD PROCEDURES PERFORMED: Coronary angiogram, left heart catheterization, conscious sedation administration and supervision, less than 15 minutes; fluoroscopy use and interpretation. PCI 1 vessel, sedation 15-30 mins PREOPERATIVE DIAGNOSES: severe CHF, r/o ischemic heart disease POSTOP DIAGNOSIS: 1v cad, predominant NICM DESCRIPTION OF PROCEDURE: The patient or appropriate family signed informed consent understanding the risks, benefits and alternatives of the procedure, they wished to proceed. The patient was brought to the cardiac excavation laborer in n.p.o. state. The patient was prepped in a sterile fashion. Sedation was used per cardiac cath protocol. I administered 2 mL of 2% lidocaine to the right wrist. With an antegrade front wall puncture. I cannulated the right radial artery and placed a 6-Portuguese Glidesheath slender. Next, an intra-arterial spasmolytic was administered. Next, a - 6French [place] catheter and XB 3.5 guide and were used for coronary angiogram and LVEDP measurement and pressure pullback. At the completion of procedure, all guides and wires were removed, and there were no immediate complications. FINDINGS: RCA: very large vessel off the right sinus of Valsalva, there is no severe flow limiting stenosis. LEFT MAIN: very short LM< size left main, it bifurcates into LAD and circumflex. CIRCUMFLEX: very large e caliber vessel coming off the left main . prox CX gives off a super large OM 1 with mild plaque. distal CX in av groove has an 80% stenosis after bifurcation . LAD: LAD is a moderate caliber vessel coming of the left main. distal LAD has 40% stenosis. Diag 2 has 80% small vessel disease likely 1mm size LVEDP of 27 mmhg INTERVENTION: We decided to proceed with coronary intervention. I started with a 6F __XB 3.5__ Guide to intubate the _Left main . Angiomax bolus and gtt was started. Following this, I decided to wire using an .014 BMW across the culprit lesion with ease. . Following this, I decided to place a stent using a 2.25 x 15 mm onyx____ stent inflated up to __14__ ATMS over 15 seconds with two separate inflations. Following this, the stent balloon removed and angio performed showing 0% residual stenosis. MARLIN pre/post: 3./3 CONCLUSIONS: 1. s/p pci to distal CX 80% stenosis 2. predominant NICM 3. elevated LVEDP PLAN: Aggressive risk factor modification and medical management for the patient. DAPT x 1 year uninterrupted GDMT for HF management more diuresis indicated EDISON VILLAFANA MD Oct 15, 2024 12:55
[2024-10-15] MEDS: TICAGRELOR 90 MG TAB ONE (12:56)
--- NOTE | 2024-10-15 14:43 | DVHPNRES ---
Progress Note Date Seen: Oct 15, 2024 Resident Creating Document: GRICELDA SEVILLA RESIDENT Medical Necessity Reason Pt with a Central, PICC or Fol: No Subjective Review of Systems 48-year-old male with past medical history of congestive heart failure, COPD not on home oxygen, hypertension comes to the ER with shortness of breaths since last 5 days, after he was discharged from the hospital. His shortness of breath worsens on lying down, improved on sitting up. Shortness of breath starts even when resting, he becomes short of breath while doing his activities of daily living. He denies any chest pain, fever, nausea or vomiting. The patient reports having right-sided abdominal discomfort and a hard mass developing over a period of 2-3 days. The patient denies any constipation. He noticed leg swelling for the same duration. ROS: 10/11/24 Patient seen in the ER. Patient appears alert x3, in no distress, he complains of mild shortness of breath and is on room air, feels like he is drowning in his own lungs, needs to get up when laying down due to shortness of breath, his last bowel movement was yesterday is on cardiac diet. Patient also complained of right lower quadrant pain. Patient admitted to using meth before getting admitted to the hospital. He has bilateral moderate pitting edema. Rest of ROS is negative. CT abdomen shows No acute abdominal or pelvic findings. Moderate cardiomegaly. Moderate right pleural effusion. Right basilar atelectasis and consolidation. Diffuse anasarca. Suspect congestive failure and/or fluid overload. Clinical correlation and continued follow-up is recommended. Cholelithiasis. Right renal cyst. Likely hyperdense left renal cysts. This can be further evaluated with MRI of the abdomen with contrast. Shotty retroperitoneal lymphadenopathy. 10/12/24 Patient seen at bedside. Patient appears alert x3, comfortable, says he had mild left calf pain due to edema, but feels better than yesterday and has mild shortness of breath and is on room air. Patient reported no pain on palpation of the abdomen. Patient had a bowel movement this morning. Patient asked for bleeding treatment at home. Rest of ROS is negative. Patient's creatinine increased to 1.5, and we decreased Lasix to 20 mg IV daily. Cardiology was consulted for critical pulmonary hypertension. 10/13/24 Patient seen at bedside. Patient appears alert x3, comfortable, still he has mild left calf pain due to edema, has shortness of breath when he walks. Denies any pain on palpation of the abdomen. Patient also feels mild dizziness, lightheaded, but denies any nausea, vomiting, constipation, and reported having normal bowel movements and no dysuria. Patient is receiving nebulized treatments and states that it is helping. Cardiology was consulted and still pending. 10/14/24: patient was seen and evaluated by me at the bedside. Patient appears alert x3, comfortable and reports feeling better after the CPAP and Ativan given to him yesterday. Cardiology consult was done today, they suggested: the patient has severe MR warrants further evaluation, and we recommend [facility] to further evaluate. MR is 2/2 to functional MR, from dilated CHF, start jardiance, and BB, iv Lasix, metolazone x 1 10/15/2024 Patient seen at bedside. Patient appears alert x3, comfortable, he is going to the left heart catheterization today. Patient is s/p 1 stent pci to distal CX 80% stenosis, has predominant NICM, and elevated LVEDP. PN0 recommended Aggressive risk factor modification and medical management for the patient. DAPT x 1 year uninterrupted, GDMT for HF management, and more diuresis indicated. Possible discharge tomorrow. Objective vital signs Vital Sign Date Time Temp Pulse Resp B/P (MAP) Pulse Ox O2 Delivery O2 Flow Rate FiO2 10/15/24 13:51 87 17 118/91 (100) 95 10/15/24 13:00 97.6 97.6 10/15/24 10:20 Room Air 0.0 10/15/24 10:20 21 Total Intake and Output 10/14/24 10/14/24 10/15/24 15:00 23:00 07:00 Intake Total 800 ml 240 ml Output Total 1150 ml 1200 ml Balance -350 ml -960 ml medications Current Medications Medications Dose Ordered Sig/Katlyn Route Start Time Stop Time Status Last Admin Dose Admin Nitroglycerin 0.4 mg Q5MINP PRN SL 10/11/24 01:30 Morphine Sulfate 2 mg Q30M PRN IV 10/11/24 01:30 Aspirin 81 mg DAILY PO 10/11/24 10:00 10/15/24 09:55 81 MG Empaglifozin 10 mg DAILY PO 10/11/24 10:00 10/15/24 09:55 10 MG Metoprolol Succinate 25 mg DAILY PO 10/11/24 10:00 10/15/24 09:56 25 MG Spironolactone 25 mg DAILY PO 10/11/24 10:00 10/15/24 09:55 25 MG Atorvastatin Calcium 40 mg DAILY PO 10/11/24 22:00 10/15/24 09:55 40 MG Albuterol 2.5 mg Q4HR NEB 10/11/24 17:45 10/15/24 10:20 2.5 MG Ipratropium [place] 0.5 mg Q4HR NEB 10/11/24 17:45 10/15/24 10:20 0.5 MG Polyethylene Glycol 17 gm DAILY PO 10/14/24 10:00 Furosemide 20 mg BIDD IV 10/14/24 18:00 10/14/24 17:26 20 MG Clopidogrel Bisulfate 75 mg DAILY PO 10/16/24 10:00 Examination General: Patient alert and oriented in person, place and time. Patient following commands. HEENT: Normocephalic, atraumatic, moist mucous membranes Respiratory/pulmonary: Clear lungs bilaterally, vesicular murmurs present in almost all lung reyna, no associated crackles or wheezes. Cardiovascular: Normal heart sounds S1 and S2 with no associated murmurs Abdomen: Abdomen nondistended, there is no pain to palpation in any of the abdominal quadrants, no palpable masses. Extremities: +1 bilateral pitting edema Peripheral Pulses: 3+ Radial (R). 3+ Radial (L). 3+ Dorsalis pedis (R). 3+ Dorsalis pedis(L) Skin: No rashes or pruritus, there is no sacral edema present at this time. 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 -Echocardiography on 09/07/24 : Dilated all cardiac chambers,Severe hypokinesis of all cardiac chambers , LV ejection fraction is only 20%,Severe MR, Critical pulmonary hypertension,RVSP is 61 mm, very high, No effusion -Chest x-ray shows: New right basilar pulmonary airspace disease and pleural effusion. Cardiomegaly and mild diffuse increased prominence of the pulmonary vasculature. -BNP 2176.07 -oxygen via nasal cannula -breathing treatments with albuterol and ipratropium nebulization q.4 hourly scheduled -Jardiance for heart failure -metoprolol and nitroglycerin for hypertension -aspirin to prevent coronary artery disease - cardiology consulted for critical pulmonary hypertension - IV Lasix was decreased to 20 mg daily - status post PCI with 1 stent placement done to distal CX 80% stenosis. - angiogram shows very large e caliber vessel coming off the left main . prox CX gives off a super large OM 1 with mild plaque. distal CX in av groove has an 80% stenosis after bifurcation . - cardiology recommended Aggressive risk factor modification and medical management for the patient. DAPT x 1 year uninterrupted, GDMT for HF management, and more diuresis indicated EKG: No ischemic changes Troponins Normal #Hyperlipidemia: Atorvastatin 40 mg #Marijuana/methamphetamine use disorder and smoking: Patient was counseled on adverse effects of drug abuse and smoking for more than 27 minutes and was offered resources to help quit. #Hyperbilirubinemia: -Most likely due to congestive hepatopathy -Monitor labs sign #Abdominal pain due to hepatic congestion secondary to CHF, Hepatomegaly? # asymptomatic cholelithiasis # diffuse anasarca - CT abdomen shows No acute abdominal or pelvic findings. Moderate cardiomegaly. Moderate right pleural effusion. Right basilar atelectasis and consolidation. Diffuse anasarca. Cholelithiasis. # right renal cyst - follow-up outpatient for further the evaluation and management GI prophylaxis: Not indicated DVT prophylaxis: Not indicated now Goals of care discussed with patient for 27 minutes: Full code Case discussed with Dr. Acevedo Plan discussed with: Patient Dietary Evaluation Review Recommendations by RD: Dietary education by RD Comments: 1) Continue cardiac diet. Encourage optimal PO intake 2) Refer to outpatient RD for weight management 3) Follow-up with cardiology, pulmonology, and nephrology 4) Follow-up with social media coordinator r/t methamphetamine use 5) Continue to monitor I&O, labs, and skin integrity Expected Outcomes/Goals: 1) appetite and labs to improve 2) gradual wt loss 3) f/u in 3-5 days GRICELDA SEVILLA RESIDENT Oct 15, 2024 14:43
[2024-10-15] MEDS: LORazepam 0.5 MG TAB PO ONE (23:03)
[2024-10-15] MEDS: CLOPIDOGREL BISULFATE 75 MG TAB PO ONE (23:05)
[2024-10-16] VITALS (11 sets, daily range): BP systolic 120–148; BP diastolic 96–99; PULSE 85–98; RESP 14–19; TEMP 97.3–97.8; O2SAT 96–100
[2024-10-16 06:32] LABS: Hematocrit 47.6 % (41.0-53.0); Hemoglobin 15.9 g/dL (13.5-17.5); Mean Corpuscular Hemoglobin 27.7 pg (28.0-32.0); Mean Corpuscular Volume 82.7 fL (80.0-100.0); Nucleated Red Blood Cells % 0.2 %
[2024-10-16 06:44] LABS: Anion Gap 11 (5-15); Carbon Dioxide 25 mmol/L (20-31); Chloride 102 mmol/L (98-107); Potassium 3.9 mmol/L (3.5-5.1); Sodium 138 mmol/L (136-145)
[2024-10-16 06:45] LABS: Calcium 9.4 mg/dL (8.7-10.4)
[2024-10-16 06:50] LABS: BUN/Creatinine Ratio 14.3 (10.0-20.0); Blood Urea Nitrogen 23 mg/dL (9-23); Glucose 81 mg/dL (74-106)
[2024-10-16] MEDS: CLOPIDOGREL BISULFATE 75 MG TAB PO SCH (09:38)
[2024-10-16] MEDS: SODIUM CHLORIDE 0.9% 250 ML IV ONE (11:20)
--- NOTE | 2024-10-16 11:47 | DVHPN2 ---
Progress Note Date Seen: Oct 16, 2024 Medical Necessity Reason Pt with a Central, PICC or Fol: No Objective vital signs Vital Sign Date Time Temp Pulse Resp B/P (MAP) Pulse Ox O2 Delivery O2 Flow Rate FiO2 10/16/24 10:29 85 16 100 10/16/24 09:37 120/99 10/16/24 08:41 97.5 97.5 10/16/24 08:10 Room Air* 0 21 Total Intake and Output 10/15/24 10/15/24 10/16/24 15:00 23:00 07:00 Intake Total 300 ml 1040 ml Output Total 950 ml 2025 ml Balance -650 ml -985 ml medications Current Medications Medications Dose Ordered Sig/Katlyn Route Start Time Stop Time Status Last Admin Dose Admin Nitroglycerin 0.4 mg Q5MINP PRN SL 10/11/24 01:30 Morphine Sulfate 2 mg Q30M PRN IV 10/11/24 01:30 Aspirin 81 mg DAILY PO 10/11/24 10:00 10/16/24 09:38 81 MG Empaglifozin 10 mg DAILY PO 10/11/24 10:00 10/16/24 09:38 10 MG Metoprolol Succinate 25 mg DAILY PO 10/11/24 10:00 10/16/24 09:37 25 MG Spironolactone 25 mg DAILY PO 10/11/24 10:00 10/16/24 09:38 25 MG Atorvastatin Calcium 40 mg DAILY PO 10/11/24 22:00 10/16/24 09:38 40 MG Albuterol 2.5 mg Q4HR NEB 10/11/24 17:45 10/16/24 10:21 2.5 MG Ipratropium [place] 0.5 mg Q4HR NEB 10/11/24 17:45 10/16/24 10:21 0.5 MG Polyethylene Glycol 17 gm DAILY PO 10/14/24 10:00 Furosemide 20 mg BIDD IV 10/14/24 18:00 10/16/24 06:29 20 MG Clopidogrel Bisulfate 75 mg DAILY PO 10/16/24 10:00 10/16/24 09:38 75 MG Gabapentin 100 mg BID PO 10/16/24 22:00 UNV Examination: GENERAL:Abnormal, HEENT:Abnormal, LUNGS:Abnormal, CVS:Abnormal, ABDOMEN:Abnormal laboratory and microbiology Laboratory Tests 10/16/24 05:32 Test 10/16/24 05:32 Range/Units Serum Glucose 81 74-106 mg/dL Microbiology Date/Time Source Procedure Growth Status 10/11/24 13:50 Nose MRSA Screen - Final Complete Problem List/Assessment/Plan Problem List/Assessment/Plan sever chf meth abuse sever MR cardiomegaly ckd s/p PCI to distal CX cont dapt dc home when stable cont GDMT (minus acei allergy) avoid meth drugs/ cannot miss dapt! Plan discussed with: Patient My Orders My Orders Orders - EDISON VILLAFANA MD Procedure Category Date Status Time Cl Left Heart Cath CL 10/15/24 Taken 12:05 Clopidogrel Bisulfate PHA 10/16/24 In Process (Plavix) 10:00 Post Cath Vital Signs BUCKY 10/15/24 In Process Q 15min Post Cath Activity BUCKY 10/15/24 In Process Protocol 13:33 Cardiac DIET 10/15/24 Transmitted Diet-2gna,Lofat,Lochol Dinner Communication Order ORDERS 10/15/24 Transmitted 13:33 Transfer Orders XFER 10/15/24 Transmitted 14:17 Dietary Evaluation Review Recommendations by RD: Dietary education by RD Comments: 1) Continue cardiac diet. Encourage optimal PO intake 2) Refer to outpatient RD for weight management 3) Follow-up with cardiology, pulmonology, and nephrology 4) Follow-up with social media strategist r/t methamphetamine use 5) Continue to monitor I&O, labs, and skin integrity Expected Outcomes/Goals: 1) appetite and labs to improve 2) gradual wt loss 3) f/u in 3-5 days Date of Service: Oct 16, 2024 Billing Provider: EDISON VILLAFANA MD Common Visit Codes: NOT BILLABLE EDISON VILLAFANA MD Oct 16, 2024 11:47
[2024-10-16] MEDS ORDERED: CLOP75TA70 PO (13:25)
[2024-10-16] MEDS ORDERED: SPIR25TA PO (13:25)
[2024-10-16] MEDS ORDERED: GAB100C PO (13:25)
--- NOTE | 2024-10-16 13:50 | DVHDSRES ---
Discharge Summary Date of Admission Resident Creating Document: GRICELDA SEVILLA RESIDENT Oct 11, 2024 at 01:23 Date of Discharge: Oct 16, 2024 Admitting Diagnosis #Shortness of breath due to exacerbation of congestive heart failure with systolic dysfunction Labs/Diagnostic Data: Laboratory Results Test 10/16/24 05:32 10/15/24 07:08 10/14/24 06:55 10/11/24 07:45 White Blood Count 10.2 10^3/uL (4.4-10.8) Red Blood Count 5.76 10^6/uL (4.5-5.90) Hemoglobin 15.9 g/dL (13.5-17.5) Hematocrit 47.6 % (41.0-53.0) Mean Corpuscular Volume 82.7 fL (80.0-100.0) Mean Corpuscular Hemoglobin 27.7 pg (28.0-32.0) Mean Corpuscular Hemoglobin Concent 33.5 g/dL (32.0-36.0) Red Cell Distribution Width 16.7 % (11.8-14.3) Platelet Count 254 10^3/uL (140-450) Mean Platelet Volume 7.7 fL (6.9-10.8) Neutrophils (%) (Auto) 68.4 % (37.0-80.0) Lymphocytes (%) (Auto) 15.1 % (10.0-50.0) Monocytes (%) (Auto) 13.8 % (0.0-12.0) Eosinophils (%) (Auto) 1.9 % (0.0-7.0) Basophils (%) (Auto) 0.8 % (0.0-2.0) Neutrophils # (Auto) 7.0 10 ^3/uL (1.6-8.6) Lymphocytes # (Auto) 1.5 10 ^3/uL (0.4-5.4) Monocytes # (Auto) 1.4 10 ^3/uL (0-1.3) Eosinophils # (Auto) 0.2 10 ^3/uL (0-0.8) Basophils # (Auto) 0.1 10 ^3/uL (0-0.2) Nucleated Red Blood Cells 0.2 % Sodium Level 138 mmol/L (136-145) Potassium Level 3.9 mmol/L (3.5-5.1) Chloride Level 102 mmol/L (98-107) Carbon Dioxide Level 25 mmol/L (20-31) Anion Gap 11 (5-15) Blood Urea Nitrogen 23 mg/dL (9-23) Creatinine 1.61 mg/dL (0.700-1.30) Glomerular Filtration Rate Calc 52 mL/min (>90) BUN/Creatinine Ratio 14.3 (10.0-20.0) Serum Glucose 81 mg/dL (74-106) Calcium Level 9.4 mg/dL (8.7-10.4) Prothrombin Time 12.7 sec (9.3-11.8) Prothrombin Time INR 1.22 (0.9-1.15) Total Bilirubin 1.6 mg/dL (0.2-1.0) Aspartate Amino Transferase (AST) 21 U/L (13-40) Alanine Aminotransferase (ALT) 17 U/L (7-40) Alkaline Phosphatase 82 U/L (46-116) Total Protein 5.6 g/dL (5.7-8.2) Albumin 3.6 g/dL (3.2-4.8) Magnesium Level 2.3 mg/dL (1.6-2.6) B-Type Natriuretic Peptide 1579.93 pg/mL (0-100) Influenza Type A Antigen Negative (Negative) Influenza Type B Antigen Negative (Negative) SARS-CoV-2 Antigen (Rapid) Negative (NEGATIVE) Test 10/11/24 00:51 10/10/24 23:40 10/10/24 06:00 Troponin I High Sensitivity 35 ng/L (</=54) Thyroid Stimulating Hormone (TSH) 1.37 uIU/mL (0.55-4.78) Urine Color Light-yellow (Yellow) Urine Clarity Clear (Clear) Urine pH 5.5 (5.0-9.0) Urine Specific [place] 1.013 (1.001-1.035) Urine Protein 1+ (Negative) Urine Ketones Negative (Negative) Urine Blood Negative /uL (Negative) Urine Nitrite Negative (Negative) Urine Bilirubin Negative (Negative) Urine Urobilinogen Normal mg/dL (Negative) Urine Leukocyte Esterase Negative /uL (Negative) Urine RBC None seen /hpf (0 - 3) Urine Microscopic WBC 1 /HPF (0-3) Urine Squamous Epithelial Cells None seen /hpf (<5) Urine Bacteria None seen /hpf (None Seen) Urine Mucus Few (None Seen) Urine Sperm Present /hpf (None Seen) Urine Glucose Normal mg/dL (Normal) Urine Opiates Screen Neg (NEGATIVE) Urine Fentanyl Screen Neg (NEGATIVE) Urine Barbiturates Screen Neg (NEGATIVE) Urine Phencyclidine Screen Neg (NEGATIVE) Urine Amphetamines Screen Pos (NEGATIVE) Urine Benzodiazepines Screen Neg (NEGATIVE) Urine Cocaine Screen Neg (NEGATIVE) Urine Cannabinoids Screen Neg (NEGATIVE) Other Laboratory Tests 10/16/24 05:32 Brief Hx & Hospital Course: 48-year-old male with past medical history of congestive heart failure, COPD not on home oxygen, hypertension comes to the ER with shortness of breaths since last 5 days, after he was discharged from the hospital. His shortness of breath worsens on lying down, improved on sitting up. Shortness of breath starts even when resting, he becomes short of breath while doing his activities of daily living. He denies any chest pain, fever, nausea or vomiting. The patient reports having right-sided abdominal discomfort and a hard mass developing over a period of 2-3 days. The patient denies any constipation. He noticed leg swelling for the same duration. 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 Chest x-ray shows: New right basilar pulmonary airspace disease and pleural effusion. Cardiomegaly and mild diffuse increased prominence of the pulmonary vasculature. BNP is 2 176.07 and he was given oxygen via nasal cannula, and breathing treatments with albuterol and ipratropium q.4 hourly scheduled. patient was on Jardiance heartburn metoprolol and nitroglycerin for hypertension, aspirin to prevent CAD. cardiology was consulted for critical pulmonary hypertension and recommended doing left heart catheterization. left heart catheterization showed very large e caliber vessel coming off the left main . prox CX gives off a super large OM 1 with mild plaque. distal CX in av groove has an 80% stenosis after bifurcation, distal CX 80% stenosis. patient was placed with 1 stent, and cardiology recommended Aggressive risk factor modification and medical management for the patient. DAPT x 1 year uninterrupted, GDMT for HF management, and more diuresis indicated. for her hyperlipidemia atorvastatin 40 mg given. for his marijuana/methamphetamine use disorder patient was counseled on the adverse effects of drug abuse and smoking for more than 27 minutes and was offered resources to help quit. for hyperbilirubinemia monitored labs daily. abdominal pain likely due to hepatic congestion secondary to CHF , CT abdominal was done and shows No acute abdominal or pelvic findings. Moderate cardiomegaly. Moderate right pleural effusion. Right basilar atelectasis and consolidation. Diffuse anasarca. Cholelithiasis. patient has a renal cyst which showed on the CT abdomen and was recommended to follow-up outpatient for further evaluation and management. Patient is stable for discharge as his chest pain, shortness of breath has decreased. patient has used CPAP machine and reports that he has slept better. He communicated understanding of his discharge plan and that he has to follow-up with his dike supervisor and discharge Clinic in 1-2 weeks. General: Patient alert and oriented in person, place and time. Patient following commands. HEENT: Normocephalic, atraumatic, moist mucous membranes Respiratory/pulmonary: Clear lungs bilaterally, vesicular murmurs present in almost all lung reyna, no associated crackles or wheezes. Cardiovascular: Normal heart sounds S1 and S2 with no associated murmurs Abdomen: Abdomen nondistended, there is no pain to palpation in any of the abdominal quadrants, no palpable masses. Extremities: +1 bilateral pitting edema Peripheral Pulses: 3+ Radial (R). 3+ Radial (L). 3+ Dorsalis pedis (R). 3+ Dorsalis pedis(L) Skin: No rashes or pruritus, there is no sacral edema present at this time. Neurological: Intact cranial nerves with no focal neurologic deficits Discharge instructions: Patient is to take aspirin, Plavix continuously for 1 year take spironolactone, atorvastatin, Jardiance, furosemide, metoprolol, gabapentin, Follow DASH-, cardiac diet Advised to follow-up with his dike supervisor and PCP in 1-2 weeks Operations or Procedures ORDERING PHYSICIAN: RACHID LOUIS MD PROCEDURE(s): CXRP - CHEST PORTABLE REASON: SOB ORDER NUMBER(s): [id number], ACCESSION NUMBER(s): [id number] CHEST RADIOGRAPH Indication: SOB Technique: Single frontal view of the chest was obtained COMPARISON: XY CHEST XRAY 1 VIEW on DOS: 09/07/24 FINDINGS: Lines and Tubes: None Lungs: Diffuse increased prominence of the pulmonary vasculature. New right basilar pulmonary airspace disease and pleural effusion. No pneumothorax. Cardiomediastinal contours: Cardiomegaly. Bones: Unremarkable IMPRESSION: 1. New right basilar pulmonary airspace disease and pleural effusion. 2. Cardiomegaly and mild diffuse increased prominence of the pulmonary vasculature. ORDERING PHYSICIAN: GRICELDA SEVILLA RESIDENT PROCEDURE(s): ABPL - CT AB PEL WO CON-NO ORAL OR IV REASON: Abdominal pain, distention ORDER NUMBER(s): [id number], ACCESSION NUMBER(s): [id number] Exam: CT CT AB PEL WO CON-NO ORAL OR IV History: Abdominal pain, distention Comparison Study: None Technique: Multidetector spiral CT of the abdomen and pelvis was performed from lung bases to pubic symphysis. Imaging was performed without IV contrast. Axial, coronal and sagittal multiplanar reformats were obtained from the axial data set by the technologist. Radiation dose : Abdomen/Pelvis: CTDIvol 25.49 mGy, DLP 1287.49 mGy*cm. Findings: Evaluation of solid organs is limited due to lack of intravenous contrast use. Lung Bases: Moderate right pleural effusion with associated right basilar atelectasis and consolidation. Moderate cardiomegaly. Liver: The liver is normal in size. No focal lesions. Gallbladder and biliary Tree: Cholelithiasis noted without secondary findings of cholecystitis or biliary obstruction. Spleen: Unremarkable Pancreas: The pancreas is grossly normal in appearance. Adrenal Glands: Unremarkable Kidneys: Right renal cyst. Subcentimeter likely hyperdense left renal cysts. No hydronephrosis or nephrolithiasis. Bladder: Grossly unremarkable for degree of distention. Bowel: The stomach is grossly normal in appearance. Small bowel and colon are normal in caliber and distribution. Normal appendix is visualized in the right lower quadrant without findings of appendicitis. Ascites: Absent Lymphadenopathy: Shotty retroperitoneal lymphadenopathy. Abdominal wall and Mesentery: Mild diffuse mesenteric hyperemia and stranding. Anasarca. Vasculature: The visualized abdominal aorta is normal in size and caliber. Evaluation of abdominal and pelvic vessels is limited due to lack of intravenous contrast. Pelvic Organs: Unremarkable Musculoskeletal: No aggressive focal bony lesions, acute fractures or dislocation. IMPRESSION: 1. No acute abdominal or pelvic findings. Moderate cardiomegaly. Moderate right pleural effusion. Right basilar atelectasis and consolidation. Diffuse anasarca. Suspect congestive failure and/or fluid overload. Clinical correlation and continued follow-up is recommended. Cholelithiasis. Right renal cyst. Likely hyperdense left renal cysts. This can be further evaluated with MRI of the abdomen with contrast. Shotty retroperitoneal lymphadenopathy. Radiation optimization: All CT scans at this facility use at least one of these dose optimization techniques: Automated exposure control mA and/or kV adjustment per patient size (includes targeted exams where dose is matched to clinical indication) or iterative reconstruction. HS:Y = ORDERING PHYSICIAN: MATA VILLAFANA MD PROCEDURE(s): CXRP - CHEST PORTABLE REASON: preop ORDER NUMBER(s): [id number], ACCESSION NUMBER(s): [id number] CHEST RADIOGRAPH Indication: preop Technique: Single frontal view of the chest was obtained COMPARISON: XY CHEST PORTABLE on DOS: 10/10/24, XY CHEST XRAY 1 VIEW on DOS: 09/07/24 FINDINGS: Lines and Tubes: None Lungs: Moderate diffuse increased prominence of the pulmonary vasculature and small bilateral pleural effusions, [id number]-left. No pneumothorax. Cardiomediastinal contours: Cardiomegaly. Bones: Unremarkable IMPRESSION: 1. Cardiomegaly, Moderate diffuse increased prominence of the pulmonary vasculature and small bilateral pleural effusions, [id number]. ATED BY: MONTY VANG MD DICTATED DATE/TIME: 10/15/24 0655 Operative Report Operative Report CARDIAC ASSOCIATE PROFESSOR OF KINESIOLOGY PROCEDURE REPORT [place], [place] Date of Service: 10/15/24 Physical Medicine Teacher: Mata Villafana MD PROCEDURES PERFORMED: Coronary angiogram, left heart catheterization, conscious sedation administration and supervision, less than 15 minutes; fluoroscopy use and interpretation. PCI 1 vessel, sedation 15-30 mins PREOPERATIVE DIAGNOSES: severe CHF, r/o ischemic heart disease POSTOP DIAGNOSIS: 1v cad, predominant NICM DESCRIPTION OF PROCEDURE: The patient or appropriate family signed informed consent understanding the risks, benefits and alternatives of the procedure, they wished to proceed. The patient was brought to the cardiac labeler in n.p.o. state. The patient was prepped in a sterile fashion. Sedation was used per cardiac cath protocol. I administered 2 mL of 2% lidocaine to the right wrist. With an antegrade front wall puncture. I cannulated the right radial artery and placed a 6-Vincentian Glidesheath slender. Next, an intra-arterial spasmolytic was administered. Next, a - 6French [place] catheter and XB 3.5 guide and were used for coronary angiogram and LVEDP measurement and pressure pullback. At the completion of procedure, all guides and wires were removed, and there were no immediate complications. FINDINGS: RCA: very large vessel off the right sinus of Valsalva, there is no severe flow limiting stenosis. LEFT MAIN: very short LM< size left main, it bifurcates into LAD and circumflex. CIRCUMFLEX: very large e caliber vessel coming off the left main . prox CX gives off a super large OM 1 with mild plaque. distal CX in av groove has an 80% stenosis after bifurcation . LAD: LAD is a moderate caliber vessel coming of the left main. distal LAD has 40% stenosis. Diag 2 has 80% small vessel disease likely 1mm size LVEDP of 27 mmhg INTERVENTION: We decided to proceed with coronary intervention. I started with a 6F __XB 3.5__ Guide to intubate the _Left main . Angiomax bolus and gtt was started. Following this, I decided to wire using an .014 BMW across the culprit lesion with ease. . Following this, I decided to place a stent using a 2.25 x 15 mm onyx____ stent inflated up to __14__ ATMS over 15 seconds with two separate inflations. Following this, the stent balloon removed and angio performed showing 0% residual stenosis. MARLIN pre/post: 3./3 CONCLUSIONS: 1. s/p pci to distal CX 80% stenosis 2. predominant NICM 3. elevated LVEDP PLAN: Aggressive risk factor modification and medical management for the patient. DAPT x 1 year uninterrupted GDMT for HF management more diuresis indicated MATA VILLAFANA MD Oct 15, 2024 12:55 DICTATED BY:MATA VILLAFANA MD DICTATED DATE/TIME:10/15/24 125 ELECTRONICALLY SIGNED BY:MATA VILLAFANA MD 10/15/24 125 ELECTRONICALLY CO-SIGNED BY: Condition at Discharge: Stable Final Diagnosis/Problems List #Shortness of breath due to exacerbation of congestive heart failure with systolic dysfunction #Acute on Chronic systolic CHF exacerbation - NYHA 3 # likely drug-induced cardiomyopathy #Uncontrolled hypertension with heart disease # pulmonary edema #NSTEMI due to demand ischemia #Shortness of breath due to pneumonia due to Gram-positive or Gram-negative organism #Shortness of breathe due to COPD exacerbation #Hyperlipidemia: #Marijuana/methamphetamine use disorder and smoking: #Hyperbilirubinemia: #Abdominal pain due to hepatic congestion secondary to CHF, Hepatomegaly? # asymptomatic cholelithiasis # diffuse anasarca # right renal cyst Discharge Disposition: Home Discharge Instruct/Medications Diet: Consistent carbohydrate, Cardiac 2g Na,low cholest Activity: No Restrictions, As Tolerated Follow Up/Referral: Follow-up with discharge Clinic in 1 week follow up withPCP in 1-2 weeks Medications: Take aspirin, Plavix, spironolactone, atorvastatin, Jardiance, furosemide, metoprolol, gabapentin, Scheduled Aspirin (Aspirin Low Dose), 81 MG PO DAILY Atorvastatin Calcium (Lipitor), 1 TAB PO DAILY Clopidogrel Bisulfate (Clopidogrel), 75 MG PO DAILY Empagliflozin (Jardiance), 10 MG PO DAILY Furosemide (Furosemide), 1 TAB PO DAILY Gabapentin (Gabapentin), 100 MG PO BID Metoprolol Succinate (Metoprolol Succinate Er), 1 TAB PO DAILY Spironolactone (Aldactone), 25 MG PO DAILY Discharge Statement: "Patient was advised to return to the ER or call 911 if any headaches, dizziness, shortness of breath, chest pain, abdominal pain, bleeding, fevers, or worsening of medical condition. Patient was counseled about treatment plan, medications, possible side effects, patientverbalized understanding. All questions were answered to the best of my ability. This discharge took greater then 30 minutes in planning, reviewing documentation, counseling the patient, and discussing with other team members." ASSESSMENT ASSESSMENT Assessment Shortness of breath due to exacerbation of CHF with systolic dysfunction GRICELDA SEVILLA RESIDENT Oct 16, 2024 13:50
[2024-10-16] MEDS ORDERED: TRAZ-228 PO (16:52)
[2024-10-16] MEDS ORDERED: GABAPENTIN 100 MG CAP PO SCH (22:00)
== END 2024-10-16 16:28 | disposition home or self-care (01) | DRG 175 ==
LOC: EDBD 22:18 → ER 22:18 → OVERFLOW 10-11 01:23 → WEST WING 10-11 23:41 → TELE-WESTW 10-15 19:12
PROVIDERS: ADMIT Student in an Organized Health Care Education/Training Program; ATTEND Internal Medicine
PROC: 5A09357 Assistance with Respiratory Ventilation, Less than 24 Consecutive Hours, Continuous Positive Airway Pressure (ICD-10-PCS; principal; 2024-10-14)
PROC: 027034Z Dilation of Coronary Artery, One Artery with Drug-eluting Intraluminal Device, Percutaneous Approach (ICD-10-PCS; 2024-10-15)
PROC: 4A023N7 Measurement of Cardiac Sampling and Pressure, Left Heart, Percutaneous Approach (ICD-10-PCS; 2024-10-15)
PROC: B211YZZ Fluoroscopy of Multiple Coronary Arteries using Other Contrast (ICD-10-PCS; 2024-10-15)
PROC: 5A09357 Assistance with Respiratory Ventilation, Less than 24 Consecutive Hours, Continuous Positive Airway Pressure (ICD-10-PCS; 2024-10-15)
PROC: 5A09357 Assistance with Respiratory Ventilation, Less than 24 Consecutive Hours, Continuous Positive Airway Pressure (ICD-10-PCS; 2024-10-16)
DX: I13.0 Hypertensive heart and chronic kidney disease with heart failure and stage 1 through stage 4 chronic kidney disease, or unspecified chronic kidney disease (principal); I21.A1 Myocardial infarction type 2; J15.69 Pneumonia due to other Gram-negative bacteria; I42.0 Dilated cardiomyopathy; I27.20 Pulmonary hypertension, unspecified; J15.9 Unspecified bacterial pneumonia; K76.1 Chronic passive congestion of liver; I25.110 Atherosclerotic heart disease of native coronary artery with unstable angina pectoris; I50.23 Acute on chronic systolic (congestive) heart failure; N17.9 Acute kidney failure, unspecified; I42.7 Cardiomyopathy due to drug and external agent; R16.0 Hepatomegaly, not elsewhere classified; J44.1 Chronic obstructive pulmonary disease with (acute) exacerbation; J44.0 Chronic obstructive pulmonary disease with (acute) lower respiratory infection; Z20.822 Contact with and (suspected) exposure to COVID-19; N18.9 Chronic kidney disease, unspecified; I34.0 Nonrheumatic mitral (valve) insufficiency; F15.10 Other stimulant abuse, uncomplicated; Z68.32 Body mass index [BMI] 32.0-32.9, adult; E66.9 Obesity, unspecified; F17.210 Nicotine dependence, cigarettes, uncomplicated; T50.995A Adverse effect of other drugs, medicaments and biological substances, initial encounter; N28.1 Cyst of kidney, acquired; E78.5 Hyperlipidemia, unspecified; E80.6 Other disorders of bilirubin metabolism; K80.20 Calculus of gallbladder without cholecystitis without obstruction; Z88.8 Allergy status to other drugs, medicaments and biological substances; Z91.199 Patient's noncompliance with other medical treatment and regimen due to unspecified reason; Z82.49 Family history of ischemic heart disease and other diseases of the circulatory system; Z80.3 Family history of malignant neoplasm of breast; Y92.89 Other specified places as the place of occurrence of the external cause
CPT/HCPCS: 36415; 71045; 74176; 80048; 80053; 80307; 81001; 83735; 83880; 84443; 84484; 85025; 85610; 86850; 86900; 86901; 87081; 87426; 87804; 92941; 93005; 93458; 94640; 94660; 96374; 99152; 99291; G0378; J2250; Q9967

== ENCOUNTER 2025-01-18 03:50 | Inpatient (IN) | payer MEDICAID ==
[2025-01-18] VITALS (15 sets, daily range): BP systolic 134–147; BP diastolic 84–102; PULSE 52–106; RESP 16–20; TEMP 96.2–98.4; O2SAT 95–99
[~2025-01-18] VITALS: Ht 175.3 cm; Wt 114.3 kg
[~2025-01-18 03:50] MED LIST changes: +CLOP75TA70 PO; +GAB100C PO; +SPIR25TA PO; +TRAZ-228 PO
--- NOTE | 2025-01-18 04:05 | ED.PDOC ---
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 # asymptomatic cholelithiasis # diffuse anasarca # right renal cyst past medical history: Hypertension, CHF, COPD surgical history: Cardiac stents family history: Denies personal and social history: Positive methamphetamine-abuse OLIVERA: CHEST PAIN SHORTNESS OF BREATH 49-year-old male brought in by ambulance from friend's house for complaint of midsternal chest pain radiating to the right shoulder and left upper extremity numbness and tingling. Onset of symptoms started yesterday and also today. Symptoms are associated with shortness of breath. He has a history of methamp hetamine abuse. Most recently yesterday. Patient is not taking any of his prescribed medications except for carvedilol. He is supposed to be on aspirin spironolactone and Lasix. Patient recently had a cardiac stent few weeks ago at this facility. Patient received nitroglycerin and full-dose aspirin prior to arrival. His pain improved from five down to 2/10. Vital signs are essentially unremarkable per EMS. Patient was slightly hypertensive in the 160s systolic. Pulse ox was stable. HPI: Poor Historian. REVIEW OF SYSTEMS: CONSTITUTIONAL: Denies acute: fever, diaphoresis, chills, generalized weakness. HEAD: Denies acute: headache, photophobia Eyes: Denies acute: Double vision, vision loss, eye pain, eye discharge. EARS: Denies acute: tinnitus, hearing loss, ear discharge, ear pain, THROAT: Denies acute: sore throat, swelling, difficulty swallowing , pain with swallowing, change in voice. NECK: Denies acute: neck pain, neck swelling, stiff neck. HEART: Denies acute : palpitations, LUNGS: Denies acute: , wheezing, cough, hemoptysis ABDOMEN: Denies acute: abdominal pain, Nausea, Vomiting, diarrhea, melena , hematemesis, hematochezia SKIN: Denies acute: rash, redness, lesions, itchiness. EXTREMITIES: Denies acute: calf pain, numbness, tingling, weakness, denies pain in extremity. Denies acute: Low back pain. Neuro: Denies acute: focal neurological deficit, motor or sensory focal neurological deficit, tremors, seizure like activity, confusion, dizziness, change in mental status, loss of bowel or bladder function, cauda equina like symptoms. : Denies acute: dysuria, hematuria, flank pain, increase in urinary frequency. PSYCH: Denies acute: hallucination, suicidal ideation, homicidal ideation. PHYSICAL EXAM: General: ---mild to moderate-----acute distress, awake and alert. Head: normocephalic, atraumatic. No raccoon's eyes, no chandra sign. Neck: supple, trachea is midline, no swelling. Throat: Normal phonation. Eyes:, no erythema, no purulent discharge, no proptosis, no icterus. Heart: regular rate, regular rhythm, no significant murmur appreciated. Lungs: no apparent respiratory distress, Able to speak in full sentences. No wheezing, no rhonchi, no crackles. No stridors Clear to auscultation bilaterally. Abdomen: non tender to palpation, non distended, soft, no guarding, no rebound, + bowel sounds. Obese Neuro: Awake, Alert, oriented to name, self, situation, follows commands GCS=15. Speech is normal. Skin: no petechia, no purpura, no cyanosis, non-pale, not jaundice. Lower extremities: --2/4 bilateral- Pitting edema no deformity, no focal swelling, no calf TTP. Makes eye contact. moves all four extremities. Face: no apparent facial droop. ED COURSE: DISCLAIMER: This medical document was created using an electronic medical record system with voice recognition software and computerized dictation system. Although this document has been carefully reviewed, there might still be some phonetic and typographical errors. Occasional wrong-word or "sound-alike" substitutions may have occurred due to the inherent limitations of voice recognition software. These areas are purely typographical due to imperfections of the software programs and do not reflect any compromise in the patient's medical care. Please read the chart carefully and recognize, using context, where these substitutions have occurred. Chief Complaint: Chest Pain Time Seen by MD: 04:05 Reviewed Notes: Business Systems Technician Notes Allergies: Coded Allergies: Lisinopril (Verified Allergy, Unknown, 09/06/24) Home Meds Active Scripts Trazodone Hcl (Trazodone Hcl) 100 Mg Tab, 100 MG PO HS PRN for 30 Days, #30 TAB 0 Refills Prov:TOM GROVES 10/16/24 Spironolactone (Aldactone) 25 Mg Tab, 25 MG PO DAILY for 30 Days, #30 TAB Prov:TOM GROVES 10/16/24 Gabapentin (Gabapentin) 100 Mg Cap, 100 MG PO BID for 30 Days, #60 CAP Prov:TOM GROVES 10/16/24 Clopidogrel Bisulfate (CLOPIDOGREL) 75 Mg Tab, 75 MG PO DAILY for 30 Days, #30 TAB Prov:TOM GROEVS 10/16/24 Metoprolol Succinate (Metoprolol Succinate Er) 25 Mg Tab, 1 TAB PO DAILY, #30 TAB 1 Refill Prov:LIBRADO HUNTER MD 09/15/24 Atorvastatin Calcium (Lipitor) 40 Mg Tab, 1 TAB PO DAILY for 30 Days, #30 TAB 0 Refills Prov:LIBRADO HUNTER MD 09/15/24 Empagliflozin (Jardiance) 10 Mg Tab, 10 MG PO DAILY for 30 Days, #30 TAB 0 Refills Prov:LIBRADO HUNTER MD 09/15/24 Furosemide (Furosemide) 40 Mg Tab, 1 TAB PO DAILY, #30 TAB 1 Refill Prov:LIBRADO HUNTER MD 09/15/24 Aspirin (Aspirin Low Dose) 81 Mg Tab, 81 MG PO DAILY for 30 Days, #30 TAB Prov:LIBRADO HUNTER MD 09/15/24 Information Source: Patient, Emergency Med Personnel Mode of Arrival: EMS Past Medical History PAST MEDICAL HISTORY: CHF, COPD, HTN Surgical History: Denies all surgeries Family History Family History: Reviewed,noncontributory to illness Social History Smoker: Non-Smoker Alcohol: Denies ETOH Use Drugs: Methamphetamine Lives In: Home EKG EKG : Pulse Rate (adult): 97 Cardiac Rhythm: NSR Was a procedure done? Was a procedure done?: No CP Differential Dx Differential Diagnosis: N/A Differential Diagnosis: Other (Ddx include but not limitied to gastritis, musculoskeletal pain, radiculopathy, atypical chest pain, dissection, aneurysm, ACS, unstable angina, hiatal hernia, GERD, anxiety, costochondritis, PE, pneumothroax, neoplasm, cardiac ischemia, drug abuse, anemia. As far as the dyspnea. Insert dyspnea) X-Ray, Labs, Meds, VS Vital Signs Date Time Temp Pulse Resp B/P (MAP) Pulse Ox O2 Delivery O2 Flow Rate FiO2 01/18/25 04:42 84 20 96 Room Air* 0 21 01/18/25 04:41 147/89 01/18/25 04:05 97 01/18/25 03:58 97 01/18/25 03:50 97.5 101 26 175/85 96 97.5 Lab Test 01/18/25 05:06 01/18/25 03:53 Range/Units Troponin I High Sensitivity Pending 107 *H </=54 ng/L White Blood Count 8.7 4.4-10.8 10^3/uL Red Blood Count 5.31 4.5-5.90 10^6/uL Hemoglobin 14.6 13.5-17.5 g/dL Hematocrit 44.2 41.0-53.0 % Mean Corpuscular Volume 83.2 80.0-100.0 fL Mean Corpuscular Hemoglobin 27.4 L 28.0-32.0 pg Mean Corpuscular Hemoglobin Concent 32.9 32.0-36.0 g/dL Red Cell Distribution Width 19.3 H 11.8-14.3 % Platelet Count 251 140-450 10^3/uL Mean Platelet Volume 7.3 6.9-10.8 fL Neutrophils (%) (Auto) 71.2 37.0-80.0 % Lymphocytes (%) (Auto) 16.9 10.0-50.0 % Monocytes (%) (Auto) 10.0 0.0-12.0 % Eosinophils (%) (Auto) 1.3 0.0-7.0 % Basophils (%) (Auto) 0.6 0.0-2.0 % Neutrophils # (Auto) 6.2 1.6-8.6 10 ^3/uL Lymphocytes # (Auto) 1.5 0.4-5.4 10 ^3/uL Monocytes # (Auto) 0.9 0-1.3 10 ^3/uL Eosinophils # (Auto) 0.1 0-0.8 10 ^3/uL Basophils # (Auto) 0.1 0-0.2 10 ^3/uL Nucleated Red Blood Cells 0.0 % Sodium Level 141 136-145 mmol/L Potassium Level 4.0 3.5-5.1 mmol/L Chloride Level 109 H 98-107 mmol/L Carbon Dioxide Level 24 20-31 mmol/L Anion Gap 8 5-15 Blood Urea Nitrogen 14 9-23 mg/dL Creatinine 1.17 0.700-1.30 mg/dL Glomerular Filtration Rate Calc 75 >90 mL/min BUN/Creatinine Ratio 12.0 10.0-20.0 Serum Glucose 116 H 74-106 mg/dL Lactic Acid Level 2.3 *H 0.4-2.0 mmol/L Calcium Level 8.6 L 8.7-10.4 mg/dL Total Bilirubin 1.4 H 0.2-1.0 mg/dL Aspartate Amino Transferase (AST) 20 13-40 U/L Alanine Aminotransferase (ALT) 19 7-40 U/L Alkaline Phosphatase 111 46-116 U/L B-Type Natriuretic Peptide 1841.19 0-100 pg/mL Total Protein 6.0 5.7-8.2 g/dL Albumin 3.6 3.2-4.8 g/dL Current Medications Medications (Trade) Dose Ordered Sig/Katlyn Route Start Time Stop Time Status Last Admin Furosemide (Lasix Injection) 60 mg ONCE ONCE IV 01/18/25 04:00 01/18/25 04:01 DC 01/18/25 04:41 [place] [id number] Ph: [phone] DIAGNOSTIC IMAGING Diagnostic Imaging Report : [id number] Signed PATIENT: SARAH OLIVERA ACCT: [id number] UNIT: [id number] : 1975 LOC: ER ROOM / BED: / AGE / SEX: 49 / M ADM STATUS: REG ER SERVICE [id number] ORDERING PHYSICIAN: MARGUERITE MCDANIELS DO PROCEDURE(s): CXRP - CHEST PORTABLE REASON: cp/sob ORDER NUMBER(s): [id number], ACCESSION NUMBER(s): [id number] CHEST RADIOGRAPH Indication: cp/sob Technique: Single frontal view of the chest was obtained COMPARISON: XY CHEST PORTABLE on DOS: 10/15/24, XY CHEST PORTABLE on DOS: 10/10/24, XY CHEST XRAY 1 VIEW on DOS: 09/07/24, US ECHO 2D MODE CARDIAC DOP on DOS: 09/07/24, XR CHEST 1 VIEW on DOS: 08/24/24 FINDINGS: Lines and Tubes: None Lungs: Increased interstitial prominence. This may represent pulmonary vascular congestion and/or viral pneumonia. Pleura: No effusion.No pneumothorax. Cardiomediastinal contours: Cardiomegaly. Bones: Unremarkable IMPRESSION: Cardiomegaly. Increased interstitial prominence. This may represent pulmonary vascular congestion and/or viral pneumonia. ATED BY: MIRZA JC MD DICTATED DATE/TIME: 01/18/25533 SIGNED BY: MIRZA JC MD SIGNED DATE/TIME: 01/18/25533 CC: Time of 1ST Reevaluation: 04:04 Reevaluation 1ST: Unchanged Patient Education/Counseling: Diagnosis, Treatment Family Education/Counseling: No Family Present Comments MDM: patient presented with the above HPI.---cardiac---workup was initiated. patient was found with the above mentioned diagnosis. the following medications were ordered: please refer to order lists of meds and tests obtained by myself Dr. Mcdaniels. Patient ED course and VS have been stabilized. Patient has been reassessed in the ED and remained in a stable condition. Pertinent incidental findings were discussed with the patient and/or family. Patient/family voices understanding and is agreeable with plan. Patient has been observed in the ED adequate length of time to insure impr ovement/stability. Escalation of care considered: Consideration of escalation to observation or admission Patient was ADMITTED to the medicine team for further evaluation and treatment of their presentation. All the reports of any imaging studies that were ordered by myself were reviewed by myself. 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 (01/18/25 ) Chest Portable (01/18/25 03:57) Electrocardigram (01/18/25 03:57) Troponin-I Hs (01/18/25 04:57) Troponin-I Hs (01/18/25 06:57) Electrocardigram (01/18/25 04:57) Electrocardigram (01/18/25 06:57) Vital Signs Date Time Temp Pulse Resp B/P (MAP) Pulse Ox O2 Delivery O2 Flow Rate FiO2 01/18/25 04:42 84 20 96 Room Air* 0 21 01/18/25 04:41 147/89 01/18/25 04:05 97 01/18/25 03:58 97 01/18/25 03:50 97.5 101 26 175/85 96 97.5 Laboratory Tests Test 01/18/25 03:53 Lactic Acid Level 2.3 mmol/L (0.4-2.0) *H White Blood Count 8.7 10^3/uL (4.4-10.8) Medications Medications Dose Ordered Sig/Katlyn Route Start Time Stop Time Status Last Admin Dose Admin Furosemide 60 mg ONCE ONCE IV 01/18/25 04:00 01/18/25 04:01 DC 01/18/25 04:41 Departure 1 Departure Time of Disposition: 04:08 Impression: Primary Impression: Chest pain Additional Impressions: History of medication noncompliance Methamphetamine abuse Elevated troponin Acute exacerbation of CHF (congestive heart failure) Disposition: ADMITTED INPATIENT Admit to: [facility] Condition: Guarded Discharged With: Self Critical Care Note Critical Care Time?: Yes (45 min-critical care time only) Heart Score Heart Score: Heart Score Response (Comments) Value History Moderate Suspicious 1 EKG Normal 0 Age 45-64 1 Risk Factors >3 or Hx ASHD 2 Troponin 1-2 x's Normal limit 1 Total 5 I personally scribed for MARGUERITE MCDANIELS DO ([email or web address]) on 01/18/25 at 04:05. Electronically submitted by Gil Almanzar ([facility]). I personally scribed for MARGUERITE MCDANIELS DO ([email or web address]) on 01/18/25 at 04:07. Electronically submitted by Gil Almanzar ([facility]). I personally scribed for MARGUERITE MCDANIELS DO ([email or web address]) on 01/18/25 at 04:11. Electronically submitted by Gil Almanzar ([facility]). I personally scribed for MARGUERITE MCDANIELS DO ([email or web address]) on 01/18/25 at 05:41. Electronically submitted by Gil Almanzar ([email or web address]). MARGUERITE MCDANIELS DO Jan 18, 2025 04:05
[2025-01-18 04:26] LABS: Alanine Aminotransferase 19 U/L (7-40); Albumin 3.6 g/dL (3.2-4.8); Alkaline Phosphatase 111 U/L (46-116); Anion Gap 8 (5-15); BUN/Creatinine Ratio 12.0 (10.0-20.0); Blood Urea Nitrogen 14 mg/dL (9-23); Carbon Dioxide 24 mmol/L (20-31); Hematocrit 44.2 % (41.0-53.0); Hemoglobin 14.6 g/dL (13.5-17.5); Mean Corpuscular Hemoglobin 27.4 pg (28.0-32.0); Mean Corpuscular Volume 83.2 fL (80.0-100.0); Nucleated Red Blood Cells % 0.0 %; Potassium 4.0 mmol/L (3.5-5.1); Sodium 141 mmol/L (136-145); Total Protein 6.0 g/dL (5.7-8.2)
[2025-01-18 04:32] LABS: Lactic Acid w/Reflex 2.3 mmol/L (0.4-2.0)
[2025-01-18 04:33] LABS: Bilirubin, Total 1.4 mg/dL (0.2-1.0); Calcium 8.6 mg/dL (8.7-10.4); Chloride 109 mmol/L (98-107); Glucose 116 mg/dL (74-106)
[2025-01-18] MEDS: FUROSEMIDE 100 MG/10ML VIAL IV ONE (04:41)
--- NOTE | 2025-01-18 05:36 | DVH ---
CHEST RADIOGRAPH Indication: cp/sob Technique: Single frontal view of the chest was obtained COMPARISON: XY CHEST PORTABLE on DOS: 10/15/24, XY CHEST PORTABLE on DOS: 10/10/24, XY CHEST XRAY 1 VIEW on DOS: 09/07/24, US ECHO 2D MODE CARDIAC DOP on DOS: 09/07/24, XR CHEST 1 VIEW on DOS: 08/24/24 FINDINGS: Lines and Tubes: None Lungs: Increased interstitial prominence. This may represent pulmonary vascular congestion and/or viral pneumonia. Pleura: No effusion.No pneumothorax. Cardiomediastinal contours: Cardiomegaly. Bones: Unremarkable IMPRESSION: Cardiomegaly. Increased interstitial prominence. This may represent pulmonary vascular congestion and/or viral pneumonia.
--- NOTE | 2025-01-18 06:54 | ECG ---
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
--- NOTE | 2025-01-18 06:54 | ECG ---
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
[2025-01-18] MEDS ORDERED: NITROGLYCERIN 0.4 MG SL TAB SL PRN ×2 (07:15→08:00)
[2025-01-18] MEDS ORDERED: HYDROcodone-ACET 5/325MG TAB PO PRN ×2 (07:15→08:00)
[2025-01-18] MEDS ORDERED: MORPHINE SULFATE INJ 2 MG/ml SYRG IV PRN ×4 (07:15→08:00)
[2025-01-18] MEDS ORDERED: ONDANSETRON HCL 4 MG/2 ML VIAL IV PRN ×2 (07:15→08:00)
[2025-01-18] MEDS ORDERED: ACETAMINOPHEN 325 MG TAB PO PRN ×2 (07:15→08:00)
--- NOTE | 2025-01-18 08:03 | DVHHP2 ---
History of Present Illness Reason for Visit: SOB History of Present Illness Monty Clayton is a 49-year-old male with past medical history of PTCA, CHF, hypertension, and COPD who presents to the ED with chest pain and shortness of breath that began yesterday that radiates to the right shoulder and left upper extremity with numbness and tingling. Patient reports that he was lying down on his friends recliner in endorses that the pain is 5/10 feels like someone is sitting on his chest and is constant. Patient also reports that he ran out of his medications and has not been taking it for over 1 month. Patient also endorses that he is homeless. He reports that he had a stent placed in at [facility] in October of 2024. Patient denies any recent trauma or injury, recent sick contacts, recent travels, recent ingestion of spoiled food, fever, chills, lightheadedness, weakness, dizziness, abdominal pain, nausea, vomiting, diarrhea, or urinary symptoms. Cardiovascular: CHF, HTN Pulmonary: COPD Past Surgical History: Other (PTCA) Family History: Other (Dad with multi organ failure and . Mom with breast cancer status post mastectomy and chemo .) Smoke: <1 pack per day ALCOHOL: none Drugs: Marijuana, Other (Methamphetamine) Lives: Homeless Domestic Violence: Neg Review of Systems Respiratory: Shortness of breath Cardiovascular: Chest Pain Allergies: Coded Allergies: Lisinopril (Verified Allergy, Unknown, 09/06/24) Exam Vital Signs Vital Signs Date Time Temp Pulse Resp B/P (MAP) Pulse Ox O2 Delivery O2 Flow Rate FiO2 01/18/25 06:22 98.0 53 18 138/102 (114) 97 98.0 01/18/25 04:42 Room Air* 0 21 General Appearance: Alert, Oriented X3, Cooperative, No acute distress HEENT: Atraumatic, PERRLA, EOMI, Mucous membr. moist/pink Respiratory: Normal air movement Cardiovascular: Normal S1, Normal S2 Abdominal: Normal bowel sounds, Soft Extremities: No clubbing, No cyanosis, Normal pulses Neuro: Normal gait, Normal speech, Strength at 5/5 X4 ext, Normal tone, Sensation intact Psych/Mental Status: Mental status NL, Mood NL Labs/Xrays Labs Test 01/18/25 05:06 01/18/25 03:53 Range/Units Troponin I High Sensitivity 107 *H </=54 ng/L White Blood Count 8.7 4.4-10.8 10^3/uL Red Blood Count 5.31 4.5-5.90 10^6/uL Hemoglobin 14.6 13.5-17.5 g/dL Hematocrit 44.2 41.0-53.0 % Mean Corpuscular Volume 83.2 80.0-100.0 fL Mean Corpuscular Hemoglobin 27.4 L 28.0-32.0 pg Mean Corpuscular Hemoglobin Concent 32.9 32.0-36.0 g/dL Red Cell Distribution Width 19.3 H 11.8-14.3 % Platelet Count 251 140-450 10^3/uL Mean Platelet Volume 7.3 6.9-10.8 fL Neutrophils (%) (Auto) 71.2 37.0-80.0 % Lymphocytes (%) (Auto) 16.9 10.0-50.0 % Monocytes (%) (Auto) 10.0 0.0-12.0 % Eosinophils (%) (Auto) 1.3 0.0-7.0 % Basophils (%) (Auto) 0.6 0.0-2.0 % Neutrophils # (Auto) 6.2 1.6-8.6 10 ^3/uL Lymphocytes # (Auto) 1.5 0.4-5.4 10 ^3/uL Monocytes # (Auto) 0.9 0-1.3 10 ^3/uL Eosinophils # (Auto) 0.1 0-0.8 10 ^3/uL Basophils # (Auto) 0.1 0-0.2 10 ^3/uL Nucleated Red Blood Cells 0.0 % Sodium Level 141 136-145 mmol/L Potassium Level 4.0 3.5-5.1 mmol/L Chloride Level 109 H 98-107 mmol/L Carbon Dioxide Level 24 20-31 mmol/L Anion Gap 8 5-15 Blood Urea Nitrogen 14 9-23 mg/dL Creatinine 1.17 0.700-1.30 mg/dL Glomerular Filtration Rate Calc 75 >90 mL/min BUN/Creatinine Ratio 12.0 10.0-20.0 Serum Glucose 116 H 74-106 mg/dL Lactic Acid Level 2.3 *H 0.4-2.0 mmol/L Calcium Level 8.6 L 8.7-10.4 mg/dL Total Bilirubin 1.4 H 0.2-1.0 mg/dL Aspartate Amino Transferase (AST) 20 13-40 U/L Alanine Aminotransferase (ALT) 19 7-40 U/L Alkaline Phosphatase 111 46-116 U/L B-Type Natriuretic Peptide 1841.19 0-100 pg/mL Total Protein 6.0 5.7-8.2 g/dL Albumin 3.6 3.2-4.8 g/dL CHEST RADIOGRAPH Indication: cp/sob Technique: Single frontal view of the chest was obtained COMPARISON: XY CHEST PORTABLE on DOS: 10/15/24, XY CHEST PORTABLE on DOS: 10/10/24, XY CHEST XRAY 1 VIEW on DOS: 09/07/24, US ECHO 2D MODE CARDIAC DOP on DOS: 09/07/24, XR CHEST 1 VIEW on DOS: 08/24/24 FINDINGS: Lines and Tubes: None Lungs: Increased interstitial prominence. This may represent pulmonary vascular congestion and/or viral pneumonia. Pleura: No effusion.No pneumothorax. Cardiomediastinal contours: Cardiomegaly. Bones: Unremarkable IMPRESSION: Cardiomegaly. Increased interstitial prominence. This may represent pulmonary vascular congestion and/or viral pneumonia. SEPSIS Sepsis Screen Date sepsis recognized/suspect: Jan 18, 2025 Time Sepsis recognized/suspect: 035 Recent Procedure: No On Antibiotic Therapy: No Respiratory Rate >20: No Heart Rate >90: No Temp<36 C (96.8 F) or >38.3 C: No SBP <90 or MAP <65 mmHG: No New Acute Mental Status Change: No Is the patient on CPAP, BIPAP,: No Physician Orders Registry Nurse (01/18/25 ) Chest Portable (01/18/25 03:57) Troponin-I Hs (01/18/25 06:57) Electrocardigram (01/18/25 06:57) Vital Signs Date Time Temp Pulse Resp B/P (MAP) Pulse Ox O2 Delivery O2 Flow Rate FiO2 01/18/25 06:22 98.0 53 18 138/102 (114) 97 98.0 01/18/25 05:41 99 01/18/25 04:42 84 20 96 Room Air* 0 21 01/18/25 04:41 147/89 01/18/25 04:05 97 01/18/25 03:58 97 01/18/25 03:50 97.5 101 26 175/85 96 97.5 Laboratory Tests Test 01/18/25 03:53 Lactic Acid Level 2.3 mmol/L (0.4-2.0) *H White Blood Count 8.7 10^3/uL (4.4-10.8) Medications Medications Dose Ordered Sig/Katlyn Route Start Time Stop Time Status Last Admin Dose Admin Furosemide 60 mg ONCE ONCE IV 01/18/25 04:00 01/18/25 04:01 DC 01/18/25 04:41 60 MG Assessment/Plan Assessment/Plan Assessment Chest pain likely due to polysubstance use NSTEMI likely type 2 Sepsis Acute on chronic CHF versus COPD exacerbation Hyperbilirubinemia Acute on chronic systolic heart failure, EF 20% 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 Gold Social work-homelessness Counseled patient on adherence of medication Counseled patient on cessation of meth, marijuana, and tobacco use Counseled patient on lifestyle modifications, diet, and exercise 91393 Behavior change smoking greater than 10 minutes about use of other options also gave option of nicotine patch 81348 Preventive counseling healthy eating habits, physical activity, and regular checkups Plan discussed with: Patient Date of Service: Jan 18, 2025 Billing Provider: SANDRA CARDONA Common Visit Codes: 08580-[id number] INP/OBS CARE (HIGH) Secondary Visit Codes: 03138-[id number] COUNSELING IND, 55132-ONJIG CHNG SMOKING >10MIN SANDRA CARDONA Jan 18, 2025 08:03
[2025-01-18 09:05] LABS: Magnesium 1.9 mg/dL (1.6-2.6); Triglycerides 48.0 mg/dL (< 150)
[2025-01-18 09:07] LABS: Cholesterol 132.0 mg/dL (< 200)
[2025-01-18 09:12] LABS: HDL Cholesterol 31.0 mg/dL (40-59)
[2025-01-18] MEDS: ALBUTEROL SULF 2.5 MG/0.5ML(0.5%) NEB SOLN NEB SCH (09:34)
[2025-01-18] MEDS: IPRATROPIUM BROM 0.5 MG/2.5ML INH SOL NEB SCH (09:34)
[2025-01-18] MEDS ORDERED: IPRATROPIUM BROM 0.5 MG/2.5ML INH SOL NEB SCH (10:00)
[2025-01-18] MEDS ORDERED: GABAPENTIN 100 MG CAP PO SCH (10:00)
[2025-01-18] MEDS ORDERED: ALBUTEROL SULF 2.5 MG/0.5ML(0.5%) NEB SOLN NEB SCH (10:00)
[2025-01-18] MEDS ORDERED: EMPAGLIFLOZIN 10 MG TAB PO SCH (10:00)
[2025-01-18] MEDS ORDERED: CLOPIDOGREL BISULFATE 75 MG TAB PO SCH (10:00)
[2025-01-18] MEDS ORDERED: PATIENTS OWN MEDICATION (Metoprolol Succinate (Metoprolol Succinate Er) 1 TAB) PO SCH (10:00)
[2025-01-18] MEDS ORDERED: FUROSEMIDE 40 MG/4 ML VIAL IV SCH (10:00)
[2025-01-18] MEDS ORDERED: SPIRONOLACTONE 25 MG TAB PO SCH (10:00)
[2025-01-18] MEDS: GABAPENTIN 100 MG CAP PO SCH (12:22)
[2025-01-18] MEDS: CLOPIDOGREL BISULFATE 75 MG TAB PO SCH (12:23)
[2025-01-18] MEDS: SPIRONOLACTONE 25 MG TAB PO SCH (12:24)
[2025-01-18] MEDS: EMPAGLIFLOZIN 10 MG TAB PO SCH (12:24)
[2025-01-18] MEDS: METOPROLOL SUCCINATE XL 50 MG TAB PO SCH (12:24)
[2025-01-18] MEDS: FUROSEMIDE 40 MG/4 ML VIAL IV SCH (12:24)
[2025-01-18 14:50] LABS: Urine Protein, UAD 1+ (Negative)
[2025-01-18 15:07] LABS: Cannabinoid Screen, Urine Neg (NEGATIVE)
[2025-01-18 15:09] LABS: Amphetamine Screen, Urine Pos (NEGATIVE); Barbiturate Scree,Urine Neg (NEGATIVE); Benzodiazephine Screen, Urine Neg (NEGATIVE); Cocaine Screen, Urine Neg (NEGATIVE); Opiate Scree,Urine Neg (NEGATIVE); Phencyclidine Screen, Urine Neg (NEGATIVE)
[2025-01-18] MEDS: AZITHROMYCIN 500MG/250ML 250 ML IV SCH (15:39)
--- NOTE | 2025-01-18 16:09 | DVHINCON2 ---
Date Seen: Jan 18, 2025 Referring Physician Jon MCBRIDE Reason for Consultation chest pain and HF exacerbation History of Present Illness This is a 49-year-old male with PMHx of CAD s/p PCI to the circumflex in October (Dr. Gold), HFrEF with EF 20 percent and severe global hypokinesis, hypertension, COPD, active polysubstance use (marijuana, methamphetamine, tobacco), and housing insecurity, who presents with chest pain and worsening dyspnea. Patient states that around 9 p.m. yesterday he developed left-sided chest pressure that improved with nitroglycerin. He also reports right shoulder and right arm pain. He endorses increasing orthopnea and PND over the past week. He admits that he ran out of most of his medications over one month ago and has only been taking carvedilol intermittently. He continues to smoke daily and uses marijuana and methamphetamine. No fever, chills, syncope, palpitations, hemoptysis, or recent infections. Symptoms today felt similar to prior heart failure flare-ups. ED Course: Hemodynamically stable. EKG showed no ST elevations or dynamic ischemic changes. Troponins 107 - 107 - 94, down trending. BNP 1,840. CXR congestive Pain improved with nitroglycerin. No arrhythmias on telemetry. Past Medical History: CAD s/p PCI to LCx (October), HFrEF EF 20 percent, hypertension, COPD, polysubstance use (marijuana, methamphetamine, tobacco), housing insecurity. Past Surgical History: PCI in October by Dr. Gold. Medications: Non-adherent for more than 1 month; only intermittently taking carvedilol. Allergies: lisinopril Social History: Homeless; stays on the street or with acquaintances. Smokes cigarettes daily. Active marijuana and methamphetamine use. Occasional alcohol use. Family History: Non-contributory per patient. Family History: Alcoholism G8 FATHER FH: SD (myocardial infarction) G8 FATHER FH: breast cancer G8 MOTHER Allergies: Coded Allergies: Lisinopril (Verified Allergy, Unknown, 09/06/24) Home Meds Active Scripts Trazodone Hcl (Trazodone Hcl) 100 Mg Tab, 100 MG PO HS PRN for 30 Days, #30 TAB 0 Refills Prov:TOM GROVES RESIDENT 10/16/24 Spironolactone (Aldactone) 25 Mg Tab, 25 MG PO DAILY for 30 Days, #30 TAB Prov:TOM GROVES [facility] 10/16/24 Gabapentin (Gabapentin) 100 Mg Cap, 100 MG PO BID for 30 Days, #60 CAP Prov:TOM GROVES [facility] 10/16/24 Clopidogrel Bisulfate (CLOPIDOGREL) 75 Mg Tab, 75 MG PO DAILY for 30 Days, #30 TAB Prov:TOM GROVES [facility] 10/16/24 Metoprolol Succinate (Metoprolol Succinate Er) 25 Mg Tab, 1 TAB PO DAILY, #30 TAB 1 Refill Prov:LIBRADO HUNTER MD 09/15/24 Atorvastatin Calcium (Lipitor) 40 Mg Tab, 1 TAB PO DAILY for 30 Days, #30 TAB 0 Refills Prov:LIBRADO HUNTER MD 09/15/24 Empagliflozin (Jardiance) 10 Mg Tab, 10 MG PO DAILY for 30 Days, #30 TAB 0 Refills Prov:LIBRADO HUNTER MD 09/15/24 Furosemide (Furosemide) 40 Mg Tab, 1 TAB PO DAILY, #30 TAB 1 Refill Prov:LIBRADO HUNTER MD 09/15/24 Aspirin (Aspirin Low Dose) 81 Mg Tab, 81 MG PO DAILY for 30 Days, #30 TAB Prov:LIBRADO HUNTER MD 09/15/24 Current Medications Current Medications Medications (Trade) Dose Ordered Sig/Katlyn Route PRN Reason Start Time Stop Time Status Last Admin Ceftriaxone Sodium 50 ml @ 100 mls/hr DAILY@09 IV 01/18/25 09:00 01/18/25 08:04 DC Azithromycin 250 ml @ 125 mls/hr DAILY IV 01/18/25 10:00 Albuterol (Ventolin Medneb) 2.5 mg Q4HWA [facility] [place] 01/18/25 10:00 01/18/25 08:04 DC Ipratropium [place] (Atrovent Medneb) 0.5 mg Q4HWA [facility] [place] 01/18/25 10:00 01/18/25 08:04 DC Furosemide (Lasix Injection) 40 mg DAILY IV 01/18/25 10:00 01/18/25 08:04 DC Acetaminophen/ Hydrocodone Bitart ([place] 5/325MG Tab) 1 tab Q4HP PRN PO MODERATE PAIN (4-6 PAIN SCALE) 01/18/25 07:15 01/18/25 08:04 DC Ondansetron HCl (Zofran) 4 mg Q4HP PRN IV NAUSEA / VOMITING 01/18/25 07:15 01/18/25 08:04 DC Acetaminophen (Tylenol Tablet) 650 mg Q6HP PRN PO PAIN SCALE 1-3 OR TEMP>100.4 01/18/25 07:15 01/18/25 08:04 DC Morphine Sulfate 2 mg Q4HPRN PRN IV SEVERE PAIN (7-10 PAIN SCALE) 01/18/25 07:15 01/18/25 08:04 DC Nitroglycerin (Ntrostat Sublingual) 0.4 mg Q5MINP PRN SL FOR CHEST PAIN 01/18/25 07:15 01/18/25 08:04 DC Morphine Sulfate 2 mg Q30M PRN IV FOR CHEST PAIN 01/18/25 07:15 01/18/25 08:04 DC Aspirin 81 mg DAILY PO 01/18/25 10:00 01/18/25 08:04 DC Atorvastatin Calcium (Lipitor) 40 mg HS PO 01/18/25 22:00 01/18/25 08:04 DC Clopidogrel Bisulfate (Plavix) 75 mg DAILY PO 01/18/25 10:00 01/18/25 08:04 DC Empaglifozin (Jardiance) 10 mg DAILY PO 01/18/25 10:00 01/18/25 08:04 DC Gabapentin (Neurontin Capsule) 100 mg BID PO 01/18/25 10:00 01/18/25 08:04 DC Spironolactone (Aldactone) 25 mg DAILY PO 01/18/25 10:00 01/18/25 08:04 DC Patient Own Medication 1 tab DAILY PO 01/18/25 10:00 01/18/25 08:04 DC Patient Own Medication 100 mg HS PRN PO FOR INSOMNIA 01/18/25 08:00 01/18/25 08:04 DC Ipratropium [place] (Atrovent Medneb) 0.5 mg Q4HWA NEB 01/18/25 10:00 01/18/25 13:48 Furosemide (Lasix Injection) 40 mg DAILY IV 01/18/25 10:00 Ondansetron HCl (Zofran) 4 mg Q4HP PRN IV NAUSEA / VOMITING 01/18/25 08:00 Morphine Sulfate 2 mg Q4HPRN PRN IV SEVERE PAIN (7-10 PAIN SCALE) 01/18/25 08:00 01/18/25 14:54 DC Morphine Sulfate 2 mg Q30M PRN IV FOR CHEST PAIN 01/18/25 08:00 Ceftriaxone Sodium 50 ml @ 100 mls/hr DAILY@09 IV 01/18/25 09:00 01/18/25 12:24 Albuterol (Ventolin Medneb) 2.5 mg Q4HWA NEB 01/18/25 10:00 01/18/25 13:48 Acetaminophen/ Hydrocodone Bitart ([place] 5/325MG Tab) 1 tab Q4HP PRN PO MODERATE PAIN (4-6 PAIN SCALE) 01/18/25 08:00 01/18/25 14:54 DC Acetaminophen (Tylenol Tablet) 650 mg Q6HP PRN PO PAIN SCALE 1-3 OR TEMP>100.4 01/18/25 08:00 Nitroglycerin (Ntrostat Sublingual) 0.4 mg Q5MINP PRN SL FOR CHEST PAIN 01/18/25 08:00 Aspirin 81 mg DAILY PO 01/18/25 10:00 01/18/25 12:24 Atorvastatin Calcium (Lipitor) 40 mg HS PO 01/18/25 22:00 Clopidogrel Bisulfate (Plavix) 75 mg DAILY PO 01/18/25 10:00 01/18/25 12:23 Empaglifozin (Jardiance) 10 mg DAILY PO 01/18/25 10:00 Gabapentin (Neurontin Capsule) 100 mg BID PO 01/18/25 10:00 01/18/25 14:54 DC 01/18/25 12:22 Spironolactone (Aldactone) 25 mg DAILY PO 01/18/25 10:00 Metoprolol Succinate (Toprol Xl) 25 mg DAILY PO 01/18/25 10:00 Trazodone HCl (Desyrel) 100 mg HS PRN PO FOR INSOMNIA 01/18/25 22:00 Review of Systems Positive for chest pressure, dyspnea, orthopnea, PND, fatigue, right shoulder and arm pain. Negative for fever, chills, cough, hemoptysis, abdominal pain, [place], vomiting, diarrhea, dysuria, syncope. Vital Signs Vital Signs Date Time Temp Pulse Resp B/P (MAP) Pulse Ox O2 Delivery O2 Flow Rate FiO2 01/18/25 13:54 96 16 97 01/18/25 13:48 Room Air* 0 21 01/18/25 09:57 98.0 138/102 98.0 Physical Exam General: Mild respiratory distress but speaking in full sentences. HEENT: Normocephalic, atraumatic, mucous membranes slightly dry. Neck: JVP elevated. No carotid bruits. Cardiac: Tachycardic, regular rhythm, S1/S2 present, no murmurs appreciated. Lungs: Bibasilar crackles, decreased breath sounds at bases. Abdomen: Soft, non-tender, nondistended, normal bowel sounds. Extremities: moderate bilateral lower extremity edema. Warm, well perfused. Neuro: Alert and oriented x3, no focal deficits. Skin: No rashes, no lesions. Labs/Diagnostic Data Labs Test 01/18/25 12:40 01/18/25 08:23 01/18/25 07:10 01/18/25 03:53 Range/Units Urine Color Light-yellow Yellow Urine Clarity Clear Clear Urine pH 5.5 5.0-9.0 Urine Specific [place] 1.012 1.001-1.035 Urine Protein 1+ H Negative Urine Ketones Negative Negative Urine Blood Negative Negative /uL Urine Nitrite Negative Negative Urine Bilirubin Negative Negative Urine Urobilinogen Normal Negative mg/dL Urine Leukocyte Esterase Negative Negative /uL Urine RBC <1 0 - 3 /hpf Urine Microscopic WBC 5 H 0-3 /HPF Urine Squamous Epithelial Cells None seen <5 /hpf Urine Bacteria Few H None Seen /hpf Urine Sperm Present None Seen /hpf Urine Glucose Normal Normal mg/dL Urine Opiates Screen Neg NEGATIVE Urine Fentanyl Screen Neg NEGATIVE Urine Barbiturates Screen Neg NEGATIVE Urine Phencyclidine Screen Neg NEGATIVE Urine Amphetamines Screen Pos NEGATIVE Urine Benzodiazepines Screen Neg NEGATIVE Urine Cocaine Screen Neg NEGATIVE Urine Cannabinoids Screen Neg NEGATIVE Magnesium Level 1.9 1.6-2.6 mg/dL Troponin I High Sensitivity 95 *H </=54 ng/L Triglycerides Level 48 < 150 mg/dL Cholesterol Level 132 < 200 mg/dL LDL Cholesterol 98 < 100 mg/dL HDL Cholesterol 31 L 40-59 mg/dL Thyroid Stimulating Hormone (TSH) 1.54 0.55-4.78 uIU/mL Free Thyroxine (T4) Calculated 1.45 0.89-1.76 ng/dL Lactic Acid Level 1.0 0.4-2.0 mmol/L White Blood Count 8.7 4.4-10.8 10^3/uL Red Blood Count 5.31 4.5-5.90 10^6/uL Hemoglobin 14.6 13.5-17.5 g/dL Hematocrit 44.2 41.0-53.0 % Mean Corpuscular Volume 83.2 80.0-100.0 fL Mean Corpuscular Hemoglobin 27.4 L 28.0-32.0 pg Mean Corpuscular Hemoglobin Concent 32.9 32.0-36.0 g/dL Red Cell Distribution Width 19.3 H 11.8-14.3 % Platelet Count 251 140-450 10^3/uL Mean Platelet Volume 7.3 6.9-10.8 fL Neutrophils (%) (Auto) 71.2 37.0-80.0 % Lymphocytes (%) (Auto) 16.9 10.0-50.0 % Monocytes (%) (Auto) 10.0 0.0-12.0 % Eosinophils (%) (Auto) 1.3 0.0-7.0 % Basophils (%) (Auto) 0.6 0.0-2.0 % Neutrophils # (Auto) 6.2 1.6-8.6 10 ^3/uL Lymphocytes # (Auto) 1.5 0.4-5.4 10 ^3/uL Monocytes # (Auto) 0.9 0-1.3 10 ^3/uL Eosinophils # (Auto) 0.1 0-0.8 10 ^3/uL Basophils # (Auto) 0.1 0-0.2 10 ^3/uL Nucleated Red Blood Cells 0.0 % Sodium Level 141 136-145 mmol/L Potassium Level 4.0 3.5-5.1 mmol/L Chloride Level 109 H 98-107 mmol/L Carbon Dioxide Level 24 20-31 mmol/L Anion Gap 8 5-15 Blood Urea Nitrogen 14 9-23 mg/dL Creatinine 1.17 0.700-1.30 mg/dL Glomerular Filtration Rate Calc 75 >90 mL/min BUN/Creatinine Ratio 12.0 10.0-20.0 Serum Glucose 116 H 74-106 mg/dL Hemoglobin A1c 5.9 H <5.7 % A1C Calcium Level 8.6 L 8.7-10.4 mg/dL Total Bilirubin 1.4 H 0.2-1.0 mg/dL Aspartate Amino Transferase (AST) 20 13-40 U/L Alanine Aminotransferase (ALT) 19 7-40 U/L Alkaline Phosphatase 111 46-116 U/L B-Type Natriuretic Peptide 1841.19 0-100 pg/mL Total Protein 6.0 5.7-8.2 g/dL Albumin 3.6 3.2-4.8 g/dL Assessment Acute decompensated HFrEF (EF 20 percent) likely due to medication nonadherence and stimulant use. Restart GDMT as tolerated including carvedilol, ARB/ARNI, MRA, and SGLT2 inhibitor; be careful since the patient has lisinopril allergy per EMR Continue IV loop diuresis strict I/Os; daily weights; low sodium diet BMP monitoring for electrolyte shifts; telemetry monitoring. Repeat echocardiogram if needed. Type 2 NSTEMI (demand ischemia). Mild troponin elevation and downtrend consistent with demand from volume overload and tachycardia. No EKG ischemic changes. Continue hemodynamic support, optimize heart failure management. No indication for repeat catheterization at this time. CAD s/p PCI to LCx (October) with low suspicion of restenosis. Continue DPAT and statin. Assess adherence and tolerance. Consider cardiology follow-up. Polysubstance use (methamphetamine, marijuana, tobacco). Director Of Psychiatry on abstinence, Hypertension. Will stabilize with volume optimization and restart outpatient agents. COPD. Not in acute exacerbation. Continue inhalers as needed. Housing insecurity and medication access barriers. Social work consult for placement options, medication assistance programs, outpatient follow-up, and harm-reduction resources. We will sign off of this case, please call if any questions. Dr Lang is covering Dr Gold Case discussed with Dr Lang Plan discussed with: Patient NYHA Physical activity limitations: Class3(Marked) ordinary Date of Service: Jan 18, 2025 Billing Provider: JOSEPH MOORE MD Cardiology Common Codes: [id number] CARE 30-74 MIN SOFY ORTIZ RESIDENT Jan 18, 2025 16:08
[2025-01-18] MEDS: ATORVASTATIN 20 MG TAB PO SCH (21:15)
[2025-01-18] MEDS ORDERED: ATORVASTATIN 20 MG TAB PO SCH (22:00)
[2025-01-19] VITALS (21 sets, daily range): BP systolic 127–147; BP diastolic 83–108; PULSE 56–105; RESP 14–20; TEMP 97.4–98; O2SAT 89–100
[2025-01-19] MEDS ORDERED: CARV-214 PO (00:04)
[2025-01-19] MEDS: CARVEDILOL 3.125 MG TAB PO ONE (00:25)
[2025-01-19 07:20] LABS: Hematocrit 46.5 % (41.0-53.0); Hemoglobin 15.3 g/dL (13.5-17.5); Mean Corpuscular Hemoglobin 27.0 pg (28.0-32.0); Mean Corpuscular Volume 82.3 fL (80.0-100.0); Nucleated Red Blood Cells % 0.1 %
[2025-01-19 07:39] LABS: Alanine Aminotransferase 18 U/L (7-40); Albumin 3.7 g/dL (3.2-4.8); Alkaline Phosphatase 105 U/L (46-116); Anion Gap 11 (5-15); BUN/Creatinine Ratio 13.0 (10.0-20.0); Blood Urea Nitrogen 18 mg/dL (9-23); Calcium 9.0 mg/dL (8.7-10.4); Carbon Dioxide 25 mmol/L (20-31); Chloride 104 mmol/L (98-107); Glucose 92 mg/dL (74-106); Potassium 3.9 mmol/L (3.5-5.1); Sodium 140 mmol/L (136-145); Total Protein 6.2 g/dL (5.7-8.2)
[2025-01-19 07:41] LABS: Bilirubin, Total 1.5 mg/dL (0.2-1.0)
--- NOTE | 2025-01-19 12:47 | DVHPN2 ---
Subjective resting comfortably/complaints of dyspnea on lying flat Changes from previous H/P or p: No Changes Cardiovascular: Chest Pain Respiratory: Shortness of breath Objective Vitals Vital Signs Date Time Temp Pulse Resp B/P (MAP) Pulse Ox O2 Delivery O2 Flow Rate FiO2 01/19/25 11:11 97 Room Air* 0 21 01/19/25 11:11 94 16 01/19/25 10:18 142/97 01/19/25 09:00 97.8 97.8 Intake/Output Intake and Output 01/19/25 07:00 Intake Total 1320 ml Output Total 1630 ml Balance -310 ml Intake Oral 1320 ml Output Urine Total 1630 ml General Appearance: Alert, Oriented X3, Cooperative, No acute distress Lungs: Clear to auscultation, Normal air movement Cardiovascular: Regular rate, Normal S1, Normal S2, No murmurs Abdomen: Normal bowel sounds, Soft, No tenderness, No hepatospenomegaly Musculoskeletal: Normal motor function Neuro: Normal speech, Strength at 5/5 X4 ext, Normal tone, Sensation intact, C ranial nerves 3-12 NL, Reflexes 2+ Psych/Mental Status: Mental status NL, Mood NL Medications Current Medications Medications Dose Ordered Sig/Katlyn Route Start Time Stop Time Status Last Admin Dose Admin Azithromycin 250 ml @ 125 mls/hr DAILY IV 01/18/25 10:00 01/18/25 15:39 125 MLS/HR Ipratropium [place] 0.5 mg Q4HWA NEB 01/18/25 10:00 01/19/25 11:10 0.5 MG Furosemide 40 mg DAILY IV 01/18/25 10:00 01/19/25 10:17 40 MG Ondansetron HCl 4 mg Q4HP PRN IV 01/18/25 08:00 Morphine Sulfate 2 mg Q30M PRN IV 01/18/25 08:00 Ceftriaxone Sodium 50 ml @ 100 mls/hr DAILY@09 IV 01/18/25 09:00 01/19/25 10:17 100 MLS/HR Albuterol 2.5 mg Q4HWA NEB 01/18/25 10:00 01/19/25 11:11 2.5 MG Acetaminophen 650 mg Q6HP PRN PO 01/18/25 08:00 Nitroglycerin 0.4 mg Q5MINP PRN SL 01/18/25 08:00 Aspirin 81 mg DAILY PO 01/18/25 10:00 01/19/25 10:17 81 MG Atorvastatin Calcium 40 mg HS PO 01/18/25 22:00 01/18/25 21:15 40 MG Clopidogrel Bisulfate 75 mg DAILY PO 01/18/25 10:00 01/19/25 10:16 75 MG Empaglifozin 10 mg DAILY PO 01/18/25 10:00 01/19/25 10:18 10 MG Spironolactone 25 mg DAILY PO 01/18/25 10:00 01/19/25 10:16 25 MG Metoprolol Succinate 25 mg DAILY PO 01/18/25 10:00 01/19/25 10:18 25 MG Trazodone HCl 100 mg HS PRN PO 01/18/25 22:00 Carvedilol 3.125 mg Q12HR PO 01/19/25 10:00 UNV Laboratory Results Laboratory Tests 01/19/25 05:25 Chemistry Test 01/19/25 05:25 Albumin 3.7 g/dL (3.2-4.8) Calcium Level 9.0 mg/dL (8.7-10.4) Total Protein 6.2 g/dL (5.7-8.2) LFT Test 01/19/25 05:25 Alanine Aminotransferase (ALT) 18 U/L (7-40) Alkaline Phosphatase 105 U/L (46-116) Aspartate Amino Transferase (AST) 20 U/L (13-40) Total Bilirubin 1.5 mg/dL (0.2-1.0) H Urinalysis Test 01/18/25 12:40 Urine Color Light-yellow (Yellow) Urine Clarity Clear (Clear) Urine pH 5.5 (5.0-9.0) Urine Specific [place] 1.012 (1.001-1.035) Urine Protein 1+ (Negative) H Urine Ketones Negative (Negative) Urine Blood Negative /uL (Negative) Urine Nitrite Negative (Negative) Urine Bilirubin Negative (Negative) Urine Urobilinogen Normal mg/dL (Negative) Urine Leukocyte Esterase Negative /uL (Negative) Urine RBC <1 /hpf (0 - 3) Urine Microscopic WBC 5 /HPF (0-3) H Urine Squamous Epithelial Cells None seen /hpf (<5) Urine Bacteria Few /hpf (None Seen) H Urine Sperm Present /hpf (None Seen) Urine Glucose Normal mg/dL (Normal) Microbiology Microbiology Date/Time Source Procedure Growth Status 01/18/25 12:40 Voided Urine Urine Culture - Preliminary Resulted 01/18/25 08:23 Blood Blood Culture - Preliminary NO GROWTH AFTER 24 HOURS OF INCUBATION. Resulted Assessment/Plan Assessment/Plan acute on chronic systolic chf meth induced cardiomyopathy- ef at 20% htn stable cad- stable cholelithiasis asymptomatic plan for possible dc in am- if stable Plan discussed with: Patient, Other Date of Service: Jan 19, 2025 Billing Provider: JUSTINE ARAGON MD Common Visit Codes: [id number] INP/OBS CARE(MOD) JUSTINE ARAGON MD Jan 19, 2025 12:47
[2025-01-19] MEDS: AZITHROMYCIN 500MG/250ML 250 ML IV SCH (16:59)
[2025-01-19] MEDS: CARVEDILOL 3.125 MG TAB PO SCH (21:26)
[2025-01-20] VITALS (16 sets, daily range): BP systolic 112–143; BP diastolic 75–96; PULSE 47–103; RESP 14–20; TEMP 97.7–99.1; O2SAT 92–100
--- NOTE | 2025-01-20 13:39 | DVHPN2 ---
Subjective resting comfortably/still waiting to talk to caseworker protective services Changes from previous H/P or p: No Changes Cardiovascular: Chest Pain Respiratory: Shortness of breath Objective Vitals Vital Signs Date Time Temp Pulse Resp B/P (MAP) Pulse Ox O2 Delivery O2 Flow Rate FiO2 01/20/25 11:23 72 117/82 01/20/25 10:37 18 95 01/20/25 10:29 Room Air 0.0 01/20/25 10:29 21 01/20/25 05:00 98.5 98.5 Intake/Output Intake and Output 01/20/25 07:00 Intake Total 1436 ml Output Total 400 ml Balance 1036 ml Intake Oral 1186 ml IV Total 250 ml Output Urine Total 400 ml # Voids 10 # Bowel Movements 2 General Appearance: Alert, Oriented X3, Cooperative, No acute distress Lungs: Clear to auscultation, Normal air movement Cardiovascular: Regular rate, Normal S1, Normal S2, No murmurs Abdomen: Normal bowel sounds, Soft, No tenderness, No hepatospenomegaly Musculoskeletal: Normal motor function Neuro: Normal speech, Strength at 5/5 X4 ext, Normal tone, Sensation intact, C ranial nerves 3-12 NL, Reflexes 2+ Psych/Mental Status: Mental status NL, Mood NL Medications Current Medications Medications Dose Ordered Sig/Katlyn Route Start Time Stop Time Status Last Admin Dose Admin Ipratropium [place] 0.5 mg Q4HWA NEB 01/18/25 10:00 01/20/25 10:29 0.5 MG Furosemide 40 mg DAILY IV 01/18/25 10:00 01/20/25 10:22 40 MG Ondansetron HCl 4 mg Q4HP PRN IV 01/18/25 08:00 Morphine Sulfate 2 mg Q30M PRN IV 01/18/25 08:00 Ceftriaxone Sodium 50 ml @ 100 mls/hr DAILY@09 IV 01/18/25 09:00 01/20/25 10:21 100 MLS/HR Albuterol 2.5 mg Q4HWA NEB 01/18/25 10:00 01/20/25 10:29 2.5 MG Acetaminophen 650 mg Q6HP PRN PO 01/18/25 08:00 Nitroglycerin 0.4 mg Q5MINP PRN SL 01/18/25 08:00 Aspirin 81 mg DAILY PO 01/18/25 10:00 01/20/25 10:22 81 MG Atorvastatin Calcium 40 mg HS PO 01/18/25 22:00 01/19/25 21:25 40 MG Clopidogrel Bisulfate 75 mg DAILY PO 01/18/25 10:00 01/20/25 10:24 75 MG Empaglifozin 10 mg DAILY PO 01/18/25 10:00 01/20/25 10:23 10 MG Spironolactone 25 mg DAILY PO 01/18/25 10:00 01/20/25 10:23 25 MG Trazodone HCl 100 mg HS PRN PO 01/18/25 22:00 01/19/25 21:26 100 MG Carvedilol 3.125 mg Q12HR PO 01/19/25 22:00 01/20/25 10:23 3.125 MG Azithromycin 250 ml @ 125 mls/hr DAILY@1630 IV 01/19/25 16:30 01/19/25 16:59 125 MLS/HR Laboratory Results Laboratory Tests 01/19/25 05:25 Urinalysis Test 01/18/25 12:40 Urine Color Light-yellow (Yellow) Urine Clarity Clear (Clear) Urine pH 5.5 (5.0-9.0) Urine Specific [place] 1.012 (1.001-1.035) Urine Protein 1+ (Negative) H Urine Ketones Negative (Negative) Urine Blood Negative /uL (Negative) Urine Nitrite Negative (Negative) Urine Bilirubin Negative (Negative) Urine Urobilinogen Normal mg/dL (Negative) Urine Leukocyte Esterase Negative /uL (Negative) Urine RBC <1 /hpf (0 - 3) Urine Microscopic WBC 5 /HPF (0-3) H Urine Squamous Epithelial Cells None seen /hpf (<5) Urine Bacteria Few /hpf (None Seen) H Urine Sperm Present /hpf (None Seen) Urine Glucose Normal mg/dL (Normal) Microbiology Microbiology Date/Time Source Procedure Growth Status 01/18/25 12:40 Voided Urine Urine Culture - Final Complete 01/18/25 08:23 Blood Blood Culture - Preliminary NO GROWTH AFTER 48 HOURS OF INCUBATION. Resulted Labs and/or images reviewed: Labs reviewed by me, Image(s) reviewed by me Assessment/Plan Assessment/Plan acute on chronic systolic chf- stbale and at baseline/claered by cardiology- per cardiology no diagnostic or therapeutic intervention indicated at this time meth induced cardiomyopathy- ef at 20%/drug screen still positive- states does not think can stop and not interested in rehab htn stable cad- stable cholelithiasis asymptomatic plan for possible dc in am- if stable-once social work specialist/caseworker protective services has offered resources Plan discussed with: Patient, Other Date of Service: Jan 20, 2025 Billing Provider: JUSTINE ARAGON MD Common Visit Codes: [id number] INP/OBS CARE(MOD) JUSTINE ARAGON MD Jan 20, 2025 13:39
[2025-01-21] VITALS (18 sets, daily range): BP systolic 112–153; BP diastolic 75–108; PULSE 52–105; RESP 16–98; TEMP 97.6–98.4; O2SAT 92–100
--- NOTE | 2025-01-21 13:01 | DVHPN2 ---
Subjective still feeling sob when laying flat Reviewed: H&P Changes from previous H/P or p: No Changes Cardiovascular: Chest Pain Respiratory: Shortness of breath Objective Vitals Vital Signs Date Time Temp Pulse Resp B/P (MAP) Pulse Ox O2 Delivery O2 Flow Rate FiO2 01/21/25 10:15 96 16 97 01/21/25 10:09 Room Air 0.0 01/21/25 10:09 21 01/21/25 09:09 145/112 01/21/25 09:00 98.0 98.0 Intake/Output Intake and Output 01/21/25 07:00 Intake Total 3713 ml Output Total 2300 ml Balance 1413 ml Intake Oral 3713 ml Output Urine Total 2300 ml General Appearance: Alert, Oriented X3, Cooperative, No acute distress Lungs: Clear to auscultation, Normal air movement Cardiovascular: Regular rate, Normal S1, Normal S2, No murmurs Abdomen: Normal bowel sounds, Soft, No tenderness, No hepatospenomegaly Musculoskeletal: Normal motor function Neuro: Normal speech, Strength at 5/5 X4 ext, Normal tone, Sensation intact, C ranial nerves 3-12 NL, Reflexes 2+ Psych/Mental Status: Mental status NL, Mood NL Medications Current Medications Medications Dose Ordered Sig/Katlyn Route Start Time Stop Time Status Last Admin Dose Admin Ipratropium [place] 0.5 mg Q4HWA NEB 01/18/25 10:00 01/21/25 10:09 0.5 MG Furosemide 40 mg DAILY IV 01/18/25 10:00 01/20/25 10:22 40 MG Ondansetron HCl 4 mg Q4HP PRN IV 01/18/25 08:00 Morphine Sulfate 2 mg Q30M PRN IV 01/18/25 08:00 Ceftriaxone Sodium 50 ml @ 100 mls/hr DAILY@09 IV 01/18/25 09:00 01/20/25 10:21 100 MLS/HR Albuterol 2.5 mg Q4HWA NEB 01/18/25 10:00 01/21/25 10:09 2.5 MG Acetaminophen 650 mg Q6HP PRN PO 01/18/25 08:00 Nitroglycerin 0.4 mg Q5MINP PRN SL 01/18/25 08:00 Aspirin 81 mg DAILY PO 01/18/25 10:00 01/21/25 09:08 81 MG Atorvastatin Calcium 40 mg HS PO 01/18/25 22:00 01/20/25 21:23 40 MG Clopidogrel Bisulfate 75 mg DAILY PO 01/18/25 10:00 01/21/25 09:10 75 MG Empaglifozin 10 mg DAILY PO 01/18/25 10:00 01/21/25 09:09 10 MG Spironolactone 25 mg DAILY PO 01/18/25 10:00 01/21/25 09:08 25 MG Trazodone HCl 100 mg HS PRN PO 01/18/25 22:00 01/20/25 22:15 100 MG Carvedilol 3.125 mg Q12HR PO 01/19/25 22:00 01/21/25 09:09 3.125 MG Azithromycin 250 ml @ 125 mls/hr DAILY@1630 IV 01/19/25 16:30 01/20/25 17:53 125 MLS/HR Laboratory Results Laboratory Tests 01/19/25 05:25 Urinalysis Test 01/18/25 12:40 Urine Color Light-yellow (Yellow) Urine Clarity Clear (Clear) Urine pH 5.5 (5.0-9.0) Urine Specific [place] 1.012 (1.001-1.035) Urine Protein 1+ (Negative) H Urine Ketones Negative (Negative) Urine Blood Negative /uL (Negative) Urine Nitrite Negative (Negative) Urine Bilirubin Negative (Negative) Urine Urobilinogen Normal mg/dL (Negative) Urine Leukocyte Esterase Negative /uL (Negative) Urine RBC <1 /hpf (0 - 3) Urine Microscopic WBC 5 /HPF (0-3) H Urine Squamous Epithelial Cells None seen /hpf (<5) Urine Bacteria Few /hpf (None Seen) H Urine Sperm Present /hpf (None Seen) Urine Glucose Normal mg/dL (Normal) Microbiology Microbiology Date/Time Source Procedure Growth Status 01/18/25 12:40 Voided Urine Urine Culture - Final Complete 01/18/25 08:23 Blood Blood Culture - Preliminary NO GROWTH AFTER 72 HOURS OF INCUBATION. Resulted Assessment/Plan Assessment/Plan acute on chronic systolic chf- stbale and at baseline/claered by cardiology- per cardiology no diagnostic or therapeutic intervention indicated at this time meth induced cardiomyopathy- ef at 20%/drug screen still positive- states does not think can stop and not interested in rehab Give 1 lasix IV today htn stable cad- stable cholelithiasis asymptomatic plan for possible dc in am- if stable-once manager social work/case management coordinator has offered resources Dispo: DC tomorrow Plan discussed with: Patient Date of Service: Jan 21, 2025 Billing Provider: JOHN PERLA MD Common Visit Codes: [id number] INP/OBS CARE(HIGH) JOHN PERLA MD Jan 21, 2025 13:00
[2025-01-22] VITALS (11 sets, daily range): BP systolic 133–142; BP diastolic 87–118; PULSE 52–95; RESP 18–20; TEMP 97.7–98.2; O2SAT 91–100
[2025-01-22] MEDS ORDERED: FURO40TA4 PO (12:05)
[2025-01-22] MEDS ORDERED: SPIR25TA PO (12:05)
[2025-01-22] MEDS ORDERED: CARV-214 PO (12:05)
[2025-01-22] MEDS ORDERED: EMPA1TAB PO (12:05)
[2025-01-22] MEDS ORDERED: CLOP75TA70 PO (12:05)
[2025-01-22] MEDS ORDERED: ASPI-325 PO (12:05)
[2025-01-22] MEDS ORDERED: METO25TA93 PO (12:05)
[2025-01-22] MEDS ORDERED: ATOR-507 PO (12:05)
--- NOTE | 2025-02-06 17:00 | DVHDS2 ---
Discharge Summary Date of Admission Jan 18, 2025 at 07:05 Date of Discharge: Jan 22, 2025 Labs/Diagnostic Data: Laboratory Results Test 01/19/25 05:25 01/18/25 12:40 01/18/25 08:23 01/18/25 07:10 White Blood Count 7.9 10^3/uL (4.4-10.8) Red Blood Count 5.65 10^6/uL (4.5-5.90) Hemoglobin 15.3 g/dL (13.5-17.5) Hematocrit 46.5 % (41.0-53.0) Mean Corpuscular Volume 82.3 fL (80.0-100.0) Mean Corpuscular Hemoglobin 27.0 pg (28.0-32.0) Mean Corpuscular Hemoglobin Concent 32.9 g/dL (32.0-36.0) Red Cell Distribution Width 19.4 % (11.8-14.3) Platelet Count 239 10^3/uL (140-450) Mean Platelet Volume 7.7 fL (6.9-10.8) Neutrophils (%) (Auto) 72.3 % (37.0-80.0) Lymphocytes (%) (Auto) 11.3 % (10.0-50.0) Monocytes (%) (Auto) 13.4 % (0.0-12.0) Eosinophils (%) (Auto) 1.8 % (0.0-7.0) Basophils (%) (Auto) 1.2 % (0.0-2.0) Neutrophils # (Auto) 5.7 10 ^3/uL (1.6-8.6) Lymphocytes # (Auto) 0.9 10 ^3/uL (0.4-5.4) Monocytes # (Auto) 1.1 10 ^3/uL (0-1.3) Eosinophils # (Auto) 0.1 10 ^3/uL (0-0.8) Basophils # (Auto) 0.1 10 ^3/uL (0-0.2) Nucleated Red Blood Cells 0.1 % Sodium Level 140 mmol/L (136-145) Potassium Level 3.9 mmol/L (3.5-5.1) Chloride Level 104 mmol/L (98-107) Carbon Dioxide Level 25 mmol/L (20-31) Anion Gap 11 (5-15) Blood Urea Nitrogen 18 mg/dL (9-23) Creatinine 1.38 mg/dL (0.700-1.30) Glomerular Filtration Rate Calc 62 mL/min (>90) BUN/Creatinine Ratio 13.0 (10.0-20.0) Serum Glucose 92 mg/dL (74-106) Calcium Level 9.0 mg/dL (8.7-10.4) Total Bilirubin 1.5 mg/dL (0.2-1.0) Aspartate Amino Transferase (AST) 20 U/L (13-40) Alanine Aminotransferase (ALT) 18 U/L (7-40) Alkaline Phosphatase 105 U/L (46-116) Total Protein 6.2 g/dL (5.7-8.2) Albumin 3.7 g/dL (3.2-4.8) Urine Color Light-yellow (Yellow) Urine Clarity Clear (Clear) Urine pH 5.5 (5.0-9.0) Urine Specific [place] 1.012 (1.001-1.035) Urine Protein 1+ (Negative) Urine Ketones Negative (Negative) Urine Blood Negative /uL (Negative) Urine Nitrite Negative (Negative) Urine Bilirubin Negative (Negative) Urine Urobilinogen Normal mg/dL (Negative) Urine Leukocyte Esterase Negative /uL (Negative) Urine RBC <1 /hpf (0 - 3) Urine Microscopic WBC 5 /HPF (0-3) Urine Squamous Epithelial Cells None seen /hpf (<5) Urine Bacteria Few /hpf (None Seen) Urine Sperm Present /hpf (None Seen) Urine Glucose Normal mg/dL (Normal) Urine Opiates Screen Neg (NEGATIVE) Urine Fentanyl Screen Neg (NEGATIVE) Urine Barbiturates Screen Neg (NEGATIVE) Urine Phencyclidine Screen Neg (NEGATIVE) Urine Amphetamines Screen Pos (NEGATIVE) Urine Benzodiazepines Screen Neg (NEGATIVE) Urine Cocaine Screen Neg (NEGATIVE) Urine Cannabinoids Screen Neg (NEGATIVE) Magnesium Level 1.9 mg/dL (1.6-2.6) Troponin I High Sensitivity 95 ng/L (</=54) Triglycerides Level 48 mg/dL (< 150) Cholesterol Level 132 mg/dL (< 200) LDL Cholesterol 98 mg/dL (< 100) HDL Cholesterol 31 mg/dL (40-59) Thyroid Stimulating Hormone (TSH) 1.54 uIU/mL (0.55-4.78) Free Thyroxine (T4) Calculated 1.45 ng/dL (0.89-1.76) Lactic Acid Level 1.0 mmol/L (0.4-2.0) Test 01/18/25 03:53 Hemoglobin A1c 5.9 % A1C (<5.7) B-Type Natriuretic Peptide 1841.19 pg/mL (0-100) Other Laboratory Tests 01/19/25 05:25 Brief Hx & Hospital Course: Monty Clayton is a 49-year-old male with past medical history of PTCA, CHF, hypertension, and COPD who presents to the ED with chest pain and shortness of breath that began yesterday that radiates to the right shoulder and left upper extremity with numbness and tingling. Patient reports that he was lying down on his friends recliner in endorses that the pain is 5/10 feels like someone is sitting on his chest and is constant. Patient also reports that he ran out of his medications and has not been taking it for over 1 month. Patient also endorses that he is homeless. He reports that he had a stent placed in at [facility] in October of 2024. Echo 20% acute on chronic systolic HF exacerbation Diuresed on IV lasix Did well and SOB resolved Condition at Discharge: Good Final Diagnosis/Problems List acute systolic HF exacerbation pneumonia due to gram negative Discharge Disposition: Home Discharge Instruct/Medications Diet: Cardiac 2g Na,low cholest Activity: No Restrictions, As Tolerated Follow Up/Referral: pcp in 7 days Medications: same home medications Scheduled Aspirin (Aspirin Low Dose), 81 MG PO DAILY Atorvastatin Calcium (Lipitor), 1 TAB PO DAILY Carvedilol (Coreg), 3.125 MG PO BID Clopidogrel Bisulfate (Clopidogrel), 75 MG PO DAILY Empagliflozin (Jardiance), 10 MG PO DAILY Furosemide (Furosemide), 1 TAB PO DAILY Gabapentin (Gabapentin), 100 MG PO BID Metoprolol Succinate (Metoprolol Succinate Er), 1 TAB PO DAILY Spironolactone (Aldactone), 25 MG PO DAILY Scheduled PRN Trazodone Hcl (Trazodone Hcl), 100 MG PO HS PRN Discharge Statement: "Patient was advised to return to the ER or call 911 if any headaches, dizziness, shortness of breath, chest pain, abdominal pain, bleeding, fevers, or worsening of medical condition. Patient was counseled about treatment plan, medications, possible side effects, patientverbalized understanding. All questions were answered to the best of my ability. This discharge took greater then 30 minutes in planning, reviewing documentation, counseling the patient, and discussing with other team members." ASSESSMENT ASSESSMENT Assessment acute systolic HF exacerbation pneumonia due to gram negative Date of Service: Jan 22, 2025 Billing Provider: JOHN PERLA MD Common Visit Codes: 69225-ZQB/OBS DISCH DAY >30min JOHN PERLA MD Feb 06, 2025 17:00
== END 2025-01-22 16:45 | disposition home or self-care (01) | DRG 720 ==
LOC: ER 03:50 → EDBD 03:50 → OVERFLOW 07:05 → ER 07:57 → TELE-WESTW 21:45
PROVIDERS: ADMIT Hospitalist; ATTEND Hospitalist
PROC: 5A09357 Assistance with Respiratory Ventilation, Less than 24 Consecutive Hours, Continuous Positive Airway Pressure (ICD-10-PCS; principal; 2025-01-21)
DX: A41.9 Sepsis, unspecified organism (principal); I50.23 Acute on chronic systolic (congestive) heart failure; J15.69 Pneumonia due to other Gram-negative bacteria; I21.A1 Myocardial infarction type 2; I11.0 Hypertensive heart disease with heart failure; J44.0 Chronic obstructive pulmonary disease with (acute) lower respiratory infection; E66.9 Obesity, unspecified; F15.10 Other stimulant abuse, uncomplicated; I42.7 Cardiomyopathy due to drug and external agent; K80.20 Calculus of gallbladder without cholecystitis without obstruction; I25.10 Atherosclerotic heart disease of native coronary artery without angina pectoris; F17.210 Nicotine dependence, cigarettes, uncomplicated; F12.90 Cannabis use, unspecified, uncomplicated; E80.6 Other disorders of bilirubin metabolism; Z88.8 Allergy status to other drugs, medicaments and biological substances; Z91.148 Patient's other noncompliance with medication regimen for other reason; Z95.5 Presence of coronary angioplasty implant and graft; Z80.3 Family history of malignant neoplasm of breast; Z68.37 Body mass index [BMI] 37.0-37.9, adult; Z59.02 Unsheltered homelessness; Z82.49 Family history of ischemic heart disease and other diseases of the circulatory system
CPT/HCPCS: 36415; 71045; 80053; 80061; 80307; 81001; 83036; 83605; 83735; 83880; 84439; 84443; 84484; 85025; 87040; 87086; 93005; 94640; 94660; 96374; 96375; 99291; G0378